=== PATIENT | female | born 1975 | race Caucasian/White ===

== ENCOUNTER 2017-09-30 14:17 | Emergency (ER) | payer SELFPAY ==
[2017-09-30 14:18] VITALS: BP 126/86; PULSE 90; RESP 16; TEMP 36.9; O2SAT 100; BMI 18.9
--- NOTE | 2017-09-30 14:31 | NURSING ---
MEDICAL ASSESSMENTS CHARTED BY SAVANNAH BLOUNT.
--- NOTE | 2017-09-30 14:55 | CT_ITS ---
STUDY: CT CHEST WITHOUT CONTRAST REASON FOR EXAM: Female, 41 years old. Left side chest pain after fall. RADIATION DOSAGE (If Supplied By Facility): CTDIvol = ( 7.97 ) mGy, DLP = ( 318.53 ) mGycm TECHNIQUE: Transaxial imaging was performed without the administration of intravenous contrast material. Individualized dose optimization techniques were used for this CT. COMPARISON: None. FINDINGS: The lungs are normal. There is no demonstrated pleural abnormality. Normal heart and pericardium. Normal mediastinum. Normal hilar regions. Normal unenhanced pulmonary arteries. Normal aorta arch and descending thoracic aorta. There is an undisplaced fracture of the left seventh rib. There is no demonstrated abnormality of the visualized upper abdomen. CT/Chest without Contrast IMPRESSION: Nondisplaced fracture of the left seventh rib. Electronically Signed: Lucy Roy MD at 15:37 EDT Tel , Service support ,
[2017-09-30] MEDS: oxyCODONE 5 MG Tablet 10 MG PO (15:11)
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
[2017-09-30 16:24] VITALS: PULSE 89; RESP 14; O2SAT 99
== END 2017-09-30 16:25 | disposition home or self-care (01) ==
PROVIDERS: Emergency Provider Emergency Medicine
DX: S22.32XA Fracture of one rib, left side, initial encounter for closed fracture (principal); W18.39XA Other fall on same level, initial encounter; Y93.89 Activity, other specified; Y92.9 Unspecified place or not applicable; Z72.0 Tobacco use
CPT/HCPCS: 71250; 99282

== ENCOUNTER 2021-09-16 05:11 | Emergency (ER) | payer MEDICAID, SELFPAY ==
[2021-09-16 05:12] VITALS: BP 122/111; PULSE 127; RESP 17; TEMP 37; O2SAT 100; BMI 27.8
--- NOTE | 2021-09-16 05:19 | RAD_ITS ---
EXAM: XR CHEST, 1 VIEW CLINICAL INDICATION: trauma TECHNIQUE: Frontal view of the chest. This report was created using [employer] report generation technology. COMPARISON: None. FINDINGS: LUNGS AND PLEURAL SPACES: Mild hazy appearance of the right mid-lateral lung suggesting pulmonary contusion. No significantly deep sulcus sign or obvious pneumothorax at the right lung base on what appears to be supine exam. No effusion. HEART: Midline heart, no mediastinal widening. MEDIASTINUM: Central airways and mediastinal contour are unremarkable. BONES/JOINTS: There are fractures of the at least the right third through ninth ribs and soft tissue gas in the right axilla. SOFT TISSUES: Unremarkable. TUBES, LINES AND DEVICES: Enteric tube tip in the body of the stomach, roughly 11.5 cm distal to the expected region of the GE junction, side-port in the stomach. The endotracheal tube is roughly 3.7 cm superior to the niranjan, appears adequately positioned. OTHER FINDINGS: 2 views. RAD/Chest 1 View (Portable) IMPRESSION: 1. Extensive right rib fractures and mild hazy opacity in the right lateral mid to upper lung field, presumably contusions. Multiple right ribs appear fractured posteriorly and laterally, presumed flail chest. No convincing significant pneumothorax on exam with supine positioning. 2. Adequately positioned endotracheal and enteric tubes. 3. Mild soft tissue gas in the right axilla. Electronically Signed: Ana Lilia Carpenter MD at 6:01 EDT ,
[2021-09-16 05:20] VITALS: BP 99/81; PULSE 127; RESP 30; O2SAT 100
--- NOTE | 2021-09-16 05:20 | RAD_ITS ---
ACR Level 3 findings have been noted. An addendum which confirms receipt of the report will follow. EXAM: XR PELVIS, 1 OR 2 VIEWS CLINICAL INDICATION: trauma TECHNIQUE: Frontal view of the pelvis. This report was created using [employer] report generation technology. COMPARISON: None. FINDINGS: BONES/JOINTS: Fractures of the right superior and inferior pubic rami. Fracture extending into the right pubic symphysis, no symphyseal widening, this may be due to overlapping fracture. Multiple small displaced fragments of the superior pubic ramus. Disruption of at least the right S1-S3 neural foramina margins consistent with sacral fracture, and fracture line noted in the superior aspect of the sacrum. Displaced fracture tip of the right L5 transverse process also noted. No destructive or sclerotic lesions. Note that overlapping bowel shadows may however obscure fine detail. Sacroiliac joints are unremarkable. The articular structures are unremarkable. SOFT TISSUES: Unremarkable. No soft tissue swelling or gas. RAD/Pelvis 1 or 2 Views IMPRESSION: Fractures of the right sacrum, right L5 transverse spinous process tip, and of the superior and inferior right pubic rami. No obvious bowel displacement to suggest a significant intrapelvic hematoma at this time. Electronically Signed: Ana Lilia Carpenter MD at 6:05 EDT ,
[2021-09-16 05:21] VITALS: O2SAT 100
--- NOTE | 2021-09-16 05:35 | CT_ITS ---
EXAM: CT THORACIC SPINE WITHOUT INTRAVENOUS CONTRAST CLINICAL INDICATION: trauma TECHNIQUE: Helically acquired images were obtained of the thoracic spine without intravenous contrast. 2D reformats were reviewed. This CT exam was performed using one or more of the following dose reduction techniques: automated exposure control, adjustment of the mA and/or kV according to patient size, and/or use of iterative reconstruction technique. This report was created using [employer] report generation technology. COMPARISON: None. FINDINGS: Fracture of the sternal manubrium. Intact thoracic spine. CT/Spine Thoracic without Contras IMPRESSION: No thoracic spine fracture. Multiple rib and other fractures. Electronically Signed: Ana Lilia Carpenter MD at 6:30 EDT ,
--- NOTE | 2021-09-16 05:35 | CT_ITS ---
We are attempting to reach an attending provider to discuss findings. An addendum with communication details will be sent when the communication is complete. EXAM: CT HEAD WITHOUT INTRAVENOUS CONTRAST CLINICAL INDICATION: trauma TECHNIQUE: Multiple axial images were obtained of the head without intravenous contrast. This CT exam was performed using one or more of the following dose reduction techniques: automated exposure control, adjustment of the mA and/or kV according to patient size, and/or use of iterative reconstruction technique. This report was created using [employer] report generation technology. RADIATION DOSE: CTDIvol = 44.99 mGy, DLP = 880.47 mGy-cm COMPARISON: None. FINDINGS: LIMITATIONS: Asymmetric and rotated patient positioning. BRAIN AND EXTRA-AXIAL SPACES: There is mild subarachnoid hemorrhage in the interpeduncular cistern. Slight intraventricular hemorrhage in the posterior horn of the left lateral ventricle. And subdural hematoma overlying the left cerebrum from anterior to posterior, maximum thickness at least 7 mm, anterior to posterior extent over 12 cm in craniocaudal extent over 10 cm. Slight if any subdural hematoma along the tentorium. No evidence of acute infarct. There is preservation of the verde/white matter interface. Posterior fossa structures are unremarkable. No hydrocephalus. BONES/JOINTS: See below. SOFT TISSUES: Marked right preorbital and frontal soft tissue contusion. No underlying skull or orbit fracture identified. SINUSES: Well aerated completely included sinuses. MASTOID AIR CELLS: Unremarkable. Clear. ORBITS: Visualized globes, extraocular muscles, optic nerves and retrobulbar fat appear unremarkable. CT/Brain/Head without Contrast IMPRESSION: 1. Prominent right facial and frontal soft tissue contusions. 2. Multifocal intracranial hemorrhage including subarachnoid, intraventricular and subdural hematoma. 3. Patient rotation, it is difficult to evaluate for subtle midline shift, slight if any shift to the right. Electronically Signed: Ana Lilia Carpenter MD at 6:26 EDT ,
--- NOTE | 2021-09-16 05:35 | CT_ITS ---
EXAM: CT LUMBAR SPINE WITHOUT INTRAVENOUS CONTRAST CLINICAL INDICATION: trauma TECHNIQUE: Helically acquired images were obtained of the lumbar spine without intravenous contrast. 2D reformats were reviewed. This CT exam was performed using one or more of the following dose reduction techniques: automated exposure control, adjustment of the mA and/or kV according to patient size, and/or use of iterative reconstruction technique. This report was created using [employer] report [employer] technology. COMPARISON: None. FINDINGS: VERTEBRAE: Displaced fracture of the tip of the right L5 transverse process. No traumatic subluxation. No discrete lytic or blastic abnormality. DISCS/SPINAL CANAL/NEURAL FORAMINA: Unremarkable. Disc heights are preserved. No critical stenosis. SOFT TISSUES: Complex fracture of the right sacrum with irregular increased soft tissue density in the right retroperitoneum, consistent with recent sacral-retroperitoneal hematoma mildly elevating the right psoas muscle, at least 2.5 cm AP. Thickening of right obturator internus muscle with mottled density consistent with intramuscular hematoma. Pelvic fractures including superior and inferior pubic rami on the right. The articular surface of the pubic symphysis is intact. VASCULATURE: Visualized abdominal aorta is not dilated. LYMPH NODES: Unremarkable. No retroperitoneal adenopathy. CT/Spine Lumbar without Contrast IMPRESSION: 1. Fracture of the right L5 transverse spinous process. Otherwise intact lumbar spine. 2. Extensive right sacral and pubic rami fractures and multifocal mild retroperitoneal and intramuscular hematoma in the right lower quadrant and pelvis. Also hematoma in the space of Retzius and superior to the pubic symphysis, greater on the left, up to 4.9 cm thickness AP. Electronically Signed: Ana Lilia Carpenter MD at 6:34 EDT ,
--- NOTE | 2021-09-16 05:35 | CT_ITS ---
EXAM: CT CERVICAL SPINE WITHOUT INTRAVENOUS CONTRAST CLINICAL INDICATION: trauma TECHNIQUE: Helically acquired images were obtained of the cervical spine without intravenous contrast. 2D reformatted images were reviewed. This CT exam was performed using one or more of the following dose reduction techniques: automated exposure control, adjustment of the mA and/or kV according to patient size, and/or use of iterative reconstruction technique. This report was created using [employer] report generation technology. RADIATION DOSE: CTDIvol = 19.71 mGy, DLP = 414.78 mGy-cm COMPARISON: None. FINDINGS: LIMITATIONS: Asymmetric and rotated patient positioning. VERTEBRAE: Mild hypertrophic changes in the facet joints. No fracture. No traumatic subluxation. No discrete lytic or blastic abnormality. Normal alignment. Normal craniocervical junction and cervicothoracic junction. DISCS/SPINAL CANAL/NEURAL FORAMINA: Moderate disc space narrowing at C5-6 with anterior, posterior and uncovertebral osteophytes. SOFT TISSUES: Unremarkable. No prevertebral soft tissue swelling. LYMPH NODES: Unremarkable. No cervical adenopathy. LUNG APICES: Unremarkable as visualized. Clear. PLEURAL SPACE: Fractures of right first anterolateral rib, patchy opacity and trace pneumothorax at the right lung apex. CT/Spine Cervical without Contras IMPRESSION: No acute cervical spine abnormality. Degenerative change, most pronounced at C5-6. Right upper rib fractures, not fully included, and pulmonary contusion and trace pneumothorax. Electronically Signed: Ana Lilia Carpenter MD at 6:38 EDT ,
[2021-09-16] MEDS: 0.9% Normal Saline 1,000 ML 999 ML IV (05:36)
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
[2021-09-16] MEDS: Diphth,Pertuss(Acell),Tet Vac 0.5 ML Vial IM (05:38)
--- NOTE | 2021-09-16 06:04 | ED.RN ---
2 units of PRBCs started with [facility] at 0604.
[2021-09-16 06:06] VITALS: BP 42/32; PULSE 125; O2SAT 100
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
--- NOTE | 2021-09-16 06:38 | ED.RN ---
Mother, Jaylin called in for update. gave number for [facility].
[2021-09-16 06:58] LABS: Absolute Lymphocyte Count 3.61 X10^3/uL (0.83-4.51); Absolute Neutrophil Count 3.3 X10^3/uL (2.0-7.7); Basophil# 0.03 X10^3/uL; Basophil% 0.4 % (0-1); Eosinophil# 0.15 X10^3/uL; Hematocrit 38.6 % (37-47); Hemoglobin 12.4 g/dL (12.0-15.0); Lymphocyte # 3.61 X10^3/ul (0.83-4.51); Lymphocyte % 48.3 % (19-41); Mean Corp Hgb Conc 32.1 g/dL (32-36); Mean Corpuscular Hgb 32.3 pg (27.0-32.0); Mean Corpuscular Volume 100.5 fL (81-99); Mean Platelet Vol. 10.1 fl (6.2-12.0); Monocyte# 0.36 X10^3/uL; Monocyte% 4.8 % (0-10); NRBC Flagged by Analyzer 0 % (0-5); Neutrophil # 3.27 X10^3/uL (2.7-7.7); Neutrophil % 43.7 % (47-70); Platelet Count 289 K/mm3 (150-450); RBC Distribution Width CV 12.6 % (11.6-14.6); RBC Distribution Width SD 46.7 fl (35.1-43.9); Red Blood Count 3.84 M/mm3 (4.2-5.4); White Blood Count 7.5 K/mm3 (4.4-11.0)
[2021-09-16 07:06] LABS: Prothrombin Time (Protime)PT. 13.2 SECONDS (11.7-14.9)
[2021-09-16 07:07] LABS: Partial Thromboplast Time 29.9 Seconds (24.1-36.2)
[2021-09-16 07:13] LABS: ALB/GLOB Ratio 0.9 RATIO (0.9-2.4); AST(SGOT) 413 U/L (15-37); Alanine Aminotransfer ALT/SGPT 215 U/L (13-56); Albumin, Serum 3.5 g/dL (3.2-5.0); Alkaline Phosphatase 69 U/L (45-117); Anion Gap 10 (5-15); BUN 11 mg/dL (7-18); BUN/Creat Ratio 11.5 RATIO (10-20); Calcium,Total 8.4 mg/dL (8.5-10.1); Chloride 105 mmol/L (98-107); Creatinine, Serum 0.96 mg/dL (0.55-1.02); EST Glomerular Filtration Rate 68 mL/min (>60); Est Glom Filt Rate - Afr Amer 82 mL/min (>60); Estimated Creatinine Clearance 70.74 ml/min; Globulin 3.9 g/dL (2.2-4.2); Glucose 111 mg/dL (74-106); Potassium 3.6 mmol/L (3.5-5.1); Protein, Total 7.4 g/dL (6.4-8.2); Sodium Level 138 mmol/L (136-145)
[2021-09-18 07:43] LABS: Bedside Glucose 96 mg/dL (74-106)
== END 2021-09-16 06:20 | disposition short-term general hospital (02) ==
PROVIDERS: Emergency Provider Emergency Medicine; Visit Provider Emergency Medicine
DX: S06.6X9A Traumatic subarachnoid hemorrhage with loss of consciousness of unspecified duration, initial encounter (principal); S06.5X9A Traumatic subdural hemorrhage with loss of consciousness of unspecified duration, initial encounter; S22.5XXA Flail chest, initial encounter for closed fracture; S27.329A Contusion of lung, unspecified, initial encounter; V09.3XXA Pedestrian injured in unspecified traffic accident, initial encounter
CPT/HCPCS: 51702; G0463; 31500; 36430; 70450; 71045; 71260; 72125; 72128; 72131; 72170; 74177; 80053; 82077; 82962; 85025; 85610; 85730; 86850; 86900; 86901; 86920; 86922; 90715; 96365; 96372; 99251; 99285; P9016; Q9967; A4216

== ENCOUNTER 2021-12-14 13:37 | Inpatient (IN) | payer MEDICAID, SELFPAY ==
[2021-12-14 13:41] VITALS: BP 109/65; PULSE 80; RESP 18; TEMP 36.7; O2SAT 96; BMI 20.2
[2021-12-14 14:54] VITALS: BP 109/65; PULSE 80; RESP 18; TEMP 36.7; O2SAT 96
[2021-12-14] MEDS: oxyCODONE 5 MG Tablet GT (18:19)
[2021-12-14] MEDS: Clindamycin HCl 150 MG Capsule 300 MG GT ×2 (18:19→22:26)
[2021-12-14] MEDS: Jevity 1.5. 1,000 ML Bottle 270 ML GT ×2 (18:19→22:24)
[2021-12-14 19:08] VITALS: BP 110/71; PULSE 77; RESP 18; TEMP 36.5; O2SAT 97
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
[2021-12-14] MEDS: LORazepam 1 MG Tablet GT (20:03)
[2021-12-14] MEDS: Acetaminophen 650 MG/20 ML UDC GT (20:03)
[2021-12-14 20:54] VITALS: BP 110/71; PULSE 77; RESP 18; TEMP 36.5; O2SAT 97
[2021-12-14 22:20] VITALS: BP 133/86; PULSE 95
[2021-12-14] MEDS: rifAMPin 300 MG Capsule GT (22:22)
[2021-12-14] MEDS: QUEtiapine 25 MG Tablet GT (22:22)
[2021-12-14] MEDS: Chlorhexidine 480 ML 15 ML PO (22:22)
[2021-12-14] MEDS: Famotidine 20 MG Tablet GT (22:23)
[2021-12-14] MEDS: Nystatin Powder 15gm Bottle 1 APPLIC TOPICAL (22:23)
[2021-12-14 22:24] VITALS: BP 133/86; PULSE 95
[2021-12-14] MEDS: Metoprolol Tartrate 100 MG Tablet GT (22:24)
[2021-12-14] MEDS: BACITRACIN 15 GM Tube 1 APPLIC TOPICAL (22:26)
[2021-12-14] MEDS: Menthol/Lanolin/Calamine/Znox 113 GM Tube 1 APPLIC TOPICAL (22:26)
[2021-12-14] MEDS: AMANTADINE HCL 50 MG/5ML 100 MG GT (22:27)
[2021-12-15] MEDS: oxyCODONE 5 MG Tablet GT ×3 (00:43→12:51)
[2021-12-15] MEDS: Jevity 1.5. 1,000 ML Bottle 270 ML GT ×5 (06:24→20:57)
[2021-12-15] MEDS: Acetaminophen 650 MG/20 ML UDC GT ×3 (06:24→20:58)
[2021-12-15] MEDS: QUEtiapine 25 MG Tablet GT ×3 (06:24→20:56)
[2021-12-15] MEDS: Menthol/Lanolin/Calamine/Znox 113 GM Tube 1 APPLIC TOPICAL ×3 (06:25→20:58)
[2021-12-15 07:50] VITALS: BP 115/82; PULSE 84; RESP 16; TEMP 36.9; O2SAT 97
[2021-12-15] MEDS: Enoxaparin 40 MG/0.4 ML Syringe SC (08:33)
[2021-12-15] MEDS: Clindamycin HCl 150 MG Capsule 300 MG GT ×3 (08:34→18:00)
[2021-12-15 08:36] VITALS: PULSE 80
[2021-12-15] MEDS: amLODIPine 10 MG Tablet GT (08:36)
[2021-12-15] MEDS: Metoprolol Tartrate 100 MG Tablet GT ×2 (08:36→20:57)
[2021-12-15] MEDS: FLUoxetine 20 MG Capsule GT (08:36)
[2021-12-15] MEDS: Famotidine 20 MG Tablet GT ×2 (08:36→20:57)
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
[2021-12-15] MEDS: AMANTADINE HCL 50 MG/5ML 100 MG GT ×2 (08:37→20:58)
[2021-12-15] MEDS: Chlorhexidine 480 ML 15 ML PO ×2 (08:42→20:56)
[2021-12-15] MEDS: Nystatin Powder 15gm Bottle 1 APPLIC TOPICAL ×2 (08:51→20:57)
[2021-12-15] MEDS: BACITRACIN 15 GM Tube 1 APPLIC TOPICAL ×2 (08:51→20:58)
[2021-12-15] MEDS: rifAMPin 300 MG Capsule GT ×2 (08:52→20:56)
--- NOTE | 2021-12-15 11:02 | CASEMGMT ---
Addendum entered by Kate Thorpe 12/15/21 12:02: Received return call from mother. Updated contacts. Pt does not have HCPOA or LW but mother is in the process of pursuing guardianship. DC goal is for pt to return home with parents. Mother works real time analyst but has intermittent FMLA or may retire. Father is retired and will be at home to assist pt 01/10. Pt lives in a 2 story home and parents planning on making a room for pt on the main floor next to a bathroom, but renovations have not begun yet. SW educated to [employer] insurance with [employer] 12/20 and continued stay is not guaranteed. Mother under the impression pt may be in [place] until [place]. Educated insurance typically does not have longer than 30 days in [place], but is all based on significant progress from update to update. Cautioned IDT and parents perception of 'significant progress' is different than insurance's. Encouraged mother to begin renovations for first floor set up for pt. Mother expressed understanding. SW to coordinate skilled HHC and DME needs - hospital bed, w/c, FWW. SW to begin searching for HHC companies that accept pt's insurance to ensure there is a agency set up by time of DC. SW educated to Team meetings for coming week and following weeks d/t Dr. mari. Mother confirmed pt does not have a PCP and will begin searching for one. SW offered to assist and contact offices to see which PCP accepts pt's insurance. Mother appreciative of all information. SW to continue to follow. Original Note: Social Work Pt unable to complete initial assessment. Left message with mother. Kate Thorpe, BIANKA ALEJANDRAW
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
[2021-12-15] MEDS: Loperamide 2 MG Capsule GT ×2 (15:40→21:39)
[2021-12-15] MEDS: LORazepam 1 MG Tablet GT (15:43)
[2021-12-15 19:06] VITALS: BP 105/74; PULSE 87; RESP 16; TEMP 36.6; O2SAT 98
[2021-12-15 20:55] VITALS: BP 100/73; PULSE 81
[2021-12-15 20:57] VITALS: BP 100/73; PULSE 81
[2021-12-16] MEDS: Acetaminophen 650 MG/20 ML UDC GT ×3 (02:25→20:35)
[2021-12-16] MEDS: Loperamide 2 MG Capsule GT ×3 (02:26→12:30)
[2021-12-16] MEDS: LORazepam 1 MG Tablet GT ×2 (02:54→12:30)
[2021-12-16] MEDS: Jevity 1.5. 1,000 ML Bottle 270 ML GT ×5 (06:10→20:36)
[2021-12-16] MEDS: QUEtiapine 25 MG Tablet GT ×3 (06:10→20:35)
[2021-12-16] MEDS: Menthol/Lanolin/Calamine/Znox 113 GM Tube 1 APPLIC TOPICAL ×3 (06:10→20:36)
[2021-12-16 07:46] VITALS: BP 119/84; PULSE 78; RESP 16; TEMP 36.4; O2SAT 100
[2021-12-16 09:27] VITALS: BP 119/82; PULSE 88
[2021-12-16] MEDS: Enoxaparin 40 MG/0.4 ML Syringe SC (09:27)
[2021-12-16] MEDS: FLUoxetine 20 MG Capsule GT (09:27)
[2021-12-16] MEDS: Famotidine 20 MG Tablet GT ×2 (09:27→20:34)
[2021-12-16] MEDS: Metoprolol Tartrate 100 MG Tablet GT ×2 (09:27→20:34)
[2021-12-16] MEDS: AMANTADINE HCL 50 MG/5ML 100 MG GT ×2 (09:27→20:36)
[2021-12-16] MEDS: Chlorhexidine 480 ML 15 ML PO ×2 (09:28→23:04)
[2021-12-16] MEDS: BACITRACIN 15 GM Tube 1 APPLIC TOPICAL ×2 (09:28→20:37)
[2021-12-16] MEDS: amLODIPine 10 MG Tablet GT (09:28)
[2021-12-16] MEDS: Nystatin Powder 15gm Bottle 1 APPLIC TOPICAL ×2 (09:29→20:37)
[2021-12-16 09:48] VITALS: PULSE 88; RESP 18; O2SAT 99
--- NOTE | 2021-12-16 10:15 | NURSING ---
Notified Dr. Campbell that pt had not had any labs ordered since admission. Received order for CBC and CMP
[2021-12-16] MEDS: oxyCODONE 5 MG Tablet GT ×2 (12:14→20:34)
[2021-12-16 12:49] LABS: ALB/GLOB Ratio 0.6 RATIO (0.9-2.4); AST(SGOT) 23 U/L (15-37); Alanine Aminotransfer ALT/SGPT 42 U/L (13-56); Albumin, Serum 2.9 g/dL (3.2-5.0); Alkaline Phosphatase 145 U/L (45-117); Anion Gap 6 (5-15); BUN 18 mg/dL (7-18); BUN/Creat Ratio 29.3 RATIO (10-20); Calcium,Total 10.4 mg/dL (8.5-10.1); Chloride 102 mmol/L (98-107); Creatinine, Serum 0.62 mg/dL (0.55-1.02); EST Glomerular Filtration Rate 112 mL/min (>60); Est Glom Filt Rate - Afr Amer 136 mL/min (>60); Glucose 111 mg/dL (74-106); Protein, Total 7.9 g/dL (6.4-8.2); Sodium Level 136 mmol/L (136-145)
[2021-12-16 13:02] LABS: Absolute Neutrophil Count 2.9 X10^3/uL (2.0-7.7); Basophil# 0.03 X10^3/uL; Basophil% 0.5 % (0-1); Eosinophil# 0.45 X10^3/uL; Eosinophils% 7.1 % (0-5); Hematocrit 33.2 % (37-47); Hemoglobin 10.4 g/dL (12.0-15.0); Lymphocyte % 36.1 % (19-41); Mean Corp Hgb Conc 31.3 g/dL (32-36); Mean Corpuscular Hgb 28.3 pg (27.0-32.0); Mean Corpuscular Volume 90.5 fL (81-99); Mean Platelet Vol. 9.7 fl (6.2-12.0); NRBC Flagged by Analyzer 0 % (0-5); Neutrophil # 2.89 X10^3/uL (2.7-7.7); Neutrophil % 45.1 % (47-70); Platelet Count 372 K/mm3 (150-450); RBC Distribution Width CV 14.8 % (11.6-14.6); RBC Distribution Width SD 49.3 fl (35.1-43.9); Red Blood Count 3.67 M/mm3 (4.2-5.4); White Blood Count 6.4 K/mm3 (4.4-11.0)
[2021-12-16 19:45] VITALS: BP 118/76; PULSE 88; RESP 20; TEMP 37.1; O2SAT 97
[2021-12-16 20:00] VITALS: PULSE 88; RESP 20; O2SAT 97
[2021-12-16 20:34] VITALS: BP 118/76; PULSE 88
--- NOTE | 2021-12-16 21:08 | NURSING ---
Addendum entered by Donna Yung 12/16/21 21:20: 2100 pt now resting and watching tv , holding her pillow of her dog. staff remained in room for comfort. Original Note: 1999 staff to room to completed clinical findings and hs care. pt was agitated and restless and moving her let leg in the bed , as well as crying out . hs care completed with 2 assists and pt yelled out when marcela-care was completed and continued to be agitated. when asked pt did say that she was hurting, tylenol and oxyir was given as per order. a new rash was noted on pt lt anterior thigh, raised and pink in color. 2029 pt continues with restlessness and agitation and tried to grab peg tube from staff while giving feeding and medication. staff tried to complete oral care and pt refused yelling no, but did apply lip balm. pt groin, buttocks, marcela-rectal area, and coccyx remains red. pt remains restless and agitation has decreased. pt asked if she was to warm and she stated yes. staff brought in a fan for comfort. 2044 pt is calmer and less restless and when asked reports that the fan is helping. staff completes rest of clinical findings 212
--- NOTE | 2021-12-16 21:21 | NURSING ---
2120 pt resting with eyes closed , no distress noted .
--- NOTE | 2021-12-17 01:51 | NURSING ---
pt required 2 assists to change attends and clean up for urine incontinence. pt agitated and yelling out. refused oral care when offered
[2021-12-17] MEDS: Acetaminophen 650 MG/20 ML UDC GT ×3 (03:43→19:42)
[2021-12-17] MEDS: oxyCODONE 5 MG Tablet GT ×3 (03:44→17:02)
[2021-12-17] MEDS: Loperamide 2 MG Capsule GT ×3 (03:44→13:47)
[2021-12-17] MEDS: Menthol/Lanolin/Calamine/Znox 113 GM Tube 1 APPLIC TOPICAL ×3 (06:20→20:06)
[2021-12-17] MEDS: Jevity 1.5. 1,000 ML Bottle 270 ML GT ×5 (06:20→22:39)
[2021-12-17] MEDS: QUEtiapine 25 MG Tablet GT ×3 (06:20→19:44)
[2021-12-17 08:15] VITALS: BP 111/73; PULSE 78; RESP 20; TEMP 36.2; O2SAT 98
[2021-12-17 10:00] VITALS: O2SAT 99
[2021-12-17] MEDS: Famotidine 20 MG Tablet GT ×2 (10:03→22:38)
[2021-12-17] MEDS: Nystatin Powder 15gm Bottle 1 APPLIC TOPICAL ×2 (10:03→20:06)
[2021-12-17] MEDS: Enoxaparin 40 MG/0.4 ML Syringe SC (10:03)
[2021-12-17] MEDS: amLODIPine 10 MG Tablet GT (10:03)
[2021-12-17] MEDS: FLUoxetine 20 MG Capsule GT (10:03)
[2021-12-17] MEDS: AMANTADINE HCL 50 MG/5ML 100 MG GT ×2 (10:04→22:37)
[2021-12-17] MEDS: Chlorhexidine 480 ML 15 ML PO ×2 (10:05→22:50)
[2021-12-17] MEDS: BACITRACIN 15 GM Tube 1 APPLIC TOPICAL ×2 (10:05→20:05)
[2021-12-17 10:07] VITALS: PULSE 105
[2021-12-17] MEDS: Metoprolol Tartrate 100 MG Tablet GT ×2 (10:07→22:38)
[2021-12-17] MEDS: LORazepam 1 MG Tablet GT ×2 (11:32→19:42)
[2021-12-17 19:45] VITALS: O2SAT 98
[2021-12-17 19:50] VITALS: BP 112/68; PULSE 79; RESP 18; TEMP 36.6; O2SAT 98
--- NOTE | 2021-12-17 19:56 | NURSING ---
Pt very restless, crying out and agitated, moving in bed. Unable to state what is wrong, answers yes to most questions, repaeting I don't know. Medicated with Ativan, one on one care given.
[2021-12-17 22:38] VITALS: BP 140/87; PULSE 91
[2021-12-18] MEDS: Menthol/Lanolin/Calamine/Znox 113 GM Tube 1 APPLIC TOPICAL ×3 (06:12→21:36)
[2021-12-18] MEDS: oxyCODONE 5 MG Tablet GT ×4 (06:26→22:05)
[2021-12-18] MEDS: QUEtiapine 25 MG Tablet GT ×3 (06:26→21:33)
[2021-12-18] MEDS: Jevity 1.5. 1,000 ML Bottle 270 ML GT ×2 (06:26→10:28)
[2021-12-18 07:23] VITALS: BP 125/77; PULSE 90; RESP 19; TEMP 36.3; O2SAT 98
--- NOTE | 2021-12-18 08:07 | CASEMGMT ---
Social Work IDT met with patient and mother for Team meeting. Discussed patient's progress in PT/OT/ST/SN. Educated to [facility] insurance with NRD 12/20 and continued stay is not guaranteed. Mother's goal remains pt home with parents at DC. Pt is currently x2 assist and some cues with directions. Will ReTeam next week. SW to continue to follow for DC planning and support. Kate Thorpe, LABORER [employer] ARCHITECT
[2021-12-18] MEDS: Famotidine 20 MG Tablet GT ×2 (10:25→21:34)
[2021-12-18] MEDS: amLODIPine 10 MG Tablet GT (10:25)
[2021-12-18 10:26] VITALS: BP 125/77; PULSE 90
[2021-12-18] MEDS: FLUoxetine 20 MG Capsule GT (10:26)
[2021-12-18] MEDS: Loperamide 2 MG Capsule GT ×3 (10:26→21:41)
[2021-12-18] MEDS: Metoprolol Tartrate 100 MG Tablet GT ×2 (10:26→21:34)
[2021-12-18] MEDS: AMANTADINE HCL 50 MG/5ML 100 MG GT ×2 (10:27→21:34)
[2021-12-18] MEDS: Chlorhexidine 480 ML 15 ML PO ×2 (10:27→21:33)
[2021-12-18] MEDS: Enoxaparin 40 MG/0.4 ML Syringe SC (10:27)
[2021-12-18] MEDS: BACITRACIN 15 GM Tube 1 APPLIC TOPICAL ×2 (10:28→21:35)
[2021-12-18] MEDS: Nystatin Powder 15gm Bottle 1 APPLIC TOPICAL ×2 (10:28→21:34)
[2021-12-18] MEDS: LORazepam 1 MG Tablet GT ×2 (11:51→22:31)
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
[2021-12-18] MEDS: Jevity 1.5. 1,000 ML Bottle 300 ML GT ×3 (14:30→21:36)
[2021-12-18 19:14] VITALS: BP 124/85; PULSE 82; RESP 16; TEMP 36.8; O2SAT 98
[2021-12-18 21:34] VITALS: PULSE 83
[2021-12-18 22:00] VITALS: PULSE 81; RESP 17; O2SAT 98
[2021-12-19] MEDS: QUEtiapine 25 MG Tablet GT ×3 (06:15→21:21)
[2021-12-19] MEDS: Jevity 1.5. 1,000 ML Bottle 300 ML GT ×5 (06:15→21:25)
[2021-12-19] MEDS: Loperamide 2 MG Capsule GT ×5 (06:15→21:21)
[2021-12-19] MEDS: Menthol/Lanolin/Calamine/Znox 113 GM Tube 1 APPLIC TOPICAL ×3 (06:15→21:25)
[2021-12-19 08:28] VITALS: BP 122/72; PULSE 85; RESP 16; TEMP 36.1; O2SAT 97
--- NOTE | 2021-12-19 08:35 | CASEMGMT ---
Addendum entered by Kate Thorpe 12/22/21 11:46: SW referred to 15 agencies within 20 mile radius, 3 stars and up via [employer]. 2 agencies potentially could accept pt d/t insurance and service area: [facility] and [facility]. SW completed a new search including 1 and 2 star providers within the same radius - an additional 10 agencies - referrals made via [employer]. Insurance NRD 12/27. SW will continue to follow. Original Note: Social Work SW to begin searching for accepting skilled [facility] providers for insurance to ensure pt has needed care at time of DC. Referrals sent to several providers via [employer]. Kate Thorpe, BIANKA ALEJANDRAW
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
[2021-12-19] MEDS: oxyCODONE 5 MG Tablet GT ×2 (10:07→14:07)
[2021-12-19 10:08] VITALS: PULSE 85
[2021-12-19] MEDS: amLODIPine 10 MG Tablet GT (10:08)
[2021-12-19] MEDS: Enoxaparin 40 MG/0.4 ML Syringe SC (10:08)
[2021-12-19] MEDS: Famotidine 20 MG Tablet GT ×2 (10:08→21:20)
[2021-12-19] MEDS: Metoprolol Tartrate 100 MG Tablet GT ×2 (10:08→21:20)
[2021-12-19] MEDS: FLUoxetine 20 MG Capsule GT (10:08)
[2021-12-19] MEDS: AMANTADINE HCL 50 MG/5ML 100 MG GT ×2 (10:09→21:21)
[2021-12-19] MEDS: Chlorhexidine 480 ML 15 ML PO ×2 (10:11→21:24)
[2021-12-19] MEDS: BACITRACIN 15 GM Tube 1 APPLIC TOPICAL ×2 (10:11→21:25)
[2021-12-19] MEDS: Nystatin Powder 15gm Bottle 1 APPLIC TOPICAL ×2 (10:14→21:24)
[2021-12-19] MEDS: LORazepam 1 MG Tablet GT ×2 (11:51→21:58)
[2021-12-19 19:31] VITALS: BP 121/77; PULSE 79; RESP 16; TEMP 36.4; O2SAT 98
[2021-12-19 21:20] VITALS: PULSE 74
[2021-12-19] MEDS: Acetaminophen 650 MG/20 ML UDC GT (21:59)
[2021-12-19 22:00] VITALS: PULSE 76; RESP 16; O2SAT 96
[2021-12-20] MEDS: Acetaminophen 650 MG/20 ML UDC GT (05:18)
[2021-12-20] MEDS: Jevity 1.5. 1,000 ML Bottle 300 ML GT ×5 (05:19→22:00)
[2021-12-20] MEDS: QUEtiapine 25 MG Tablet GT ×3 (05:19→21:58)
[2021-12-20] MEDS: Loperamide 2 MG Capsule GT ×4 (05:19→17:53)
[2021-12-20] MEDS: Menthol/Lanolin/Calamine/Znox 113 GM Tube 1 APPLIC TOPICAL ×3 (05:19→21:58)
[2021-12-20 07:45] VITALS: BP 120/79; PULSE 72; RESP 17; TEMP 35.9; O2SAT 94
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
[2021-12-20] MEDS: Enoxaparin 40 MG/0.4 ML Syringe SC (10:34)
[2021-12-20] MEDS: oxyCODONE 5 MG Tablet GT ×3 (10:34→21:56)
[2021-12-20] MEDS: AMANTADINE HCL 50 MG/5ML 100 MG GT ×2 (10:34→21:59)
[2021-12-20 10:35] VITALS: PULSE 72
[2021-12-20] MEDS: Famotidine 20 MG Tablet GT ×2 (10:35→21:58)
[2021-12-20] MEDS: Metoprolol Tartrate 100 MG Tablet GT ×2 (10:35→22:00)
[2021-12-20] MEDS: FLUoxetine 20 MG Capsule GT (10:35)
[2021-12-20] MEDS: amLODIPine 10 MG Tablet GT (10:35)
[2021-12-20] MEDS: BACITRACIN 15 GM Tube 1 APPLIC TOPICAL ×2 (10:36→21:59)
[2021-12-20] MEDS: Nystatin Powder 15gm Bottle 1 APPLIC TOPICAL ×2 (10:36→21:58)
[2021-12-20] MEDS: Chlorhexidine 480 ML 15 ML PO ×2 (10:37→21:58)
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
[2021-12-20 19:13] VITALS: BP 101/60; PULSE 80; RESP 16; TEMP 35.7; O2SAT 98
[2021-12-20] MEDS: LORazepam 1 MG Tablet GT (21:56)
[2021-12-20 22:00] VITALS: PULSE 80; PULSE 83; RESP 16; O2SAT 98
[2021-12-21] MEDS: Jevity 1.5. 1,000 ML Bottle 300 ML GT ×4 (06:07→22:57)
[2021-12-21] MEDS: Menthol/Lanolin/Calamine/Znox 113 GM Tube 1 APPLIC TOPICAL ×3 (06:07→22:57)
[2021-12-21] MEDS: QUEtiapine 25 MG Tablet GT ×3 (06:08→22:56)
[2021-12-21] MEDS: Acetaminophen 650 MG/20 ML UDC GT ×3 (06:08→22:51)
[2021-12-21] MEDS: Loperamide 2 MG Capsule GT ×5 (06:08→22:55)
[2021-12-21 07:29] VITALS: BP 112/57; PULSE 78; RESP 16; TEMP 36.6; O2SAT 96
[2021-12-21 08:13] VITALS: BP 112/57; PULSE 78; RESP 16; TEMP 36.6; O2SAT 96
[2021-12-21] MEDS: AMANTADINE HCL 50 MG/5ML 100 MG GT ×2 (09:56→22:58)
[2021-12-21] MEDS: Famotidine 20 MG Tablet GT ×2 (09:56→22:56)
[2021-12-21 09:57] VITALS: PULSE 78
[2021-12-21] MEDS: amLODIPine 10 MG Tablet GT (09:57)
[2021-12-21] MEDS: FLUoxetine 20 MG Capsule GT (09:57)
[2021-12-21] MEDS: Metoprolol Tartrate 100 MG Tablet GT ×2 (09:57→22:56)
[2021-12-21] MEDS: Enoxaparin 40 MG/0.4 ML Syringe SC (09:59)
[2021-12-21] MEDS: oxyCODONE 5 MG Tablet GT (10:00)
[2021-12-21] MEDS: Nystatin Powder 15gm Bottle 1 APPLIC TOPICAL ×2 (10:08→22:56)
[2021-12-21] MEDS: Chlorhexidine 480 ML 15 ML PO ×2 (12:56→22:56)
[2021-12-21] MEDS: BACITRACIN 15 GM Tube 1 APPLIC TOPICAL ×2 (12:56→22:57)
[2021-12-21] MEDS: LORazepam 1 MG Tablet GT (17:42)
--- NOTE | 2021-12-21 18:20 | NURSING ---
Prn ativan given per GT. Patient was having outbursts of yelling, crying, and restlessness after her company left. Unable to console and patient is alert to self with questionable understanding and 1:1 ineffective.
[2021-12-21 19:16] VITALS: BP 96/65; PULSE 67; RESP 16; TEMP 36.6; O2SAT 100
[2021-12-21 22:56] VITALS: BP 116/75; PULSE 85
[2021-12-22] MEDS: Jevity 1.5. 1,000 ML Bottle 300 ML GT ×5 (05:27→21:58)
[2021-12-22] MEDS: QUEtiapine 25 MG Tablet GT ×3 (05:27→18:50)
[2021-12-22] MEDS: Menthol/Lanolin/Calamine/Znox 113 GM Tube 1 APPLIC TOPICAL ×3 (05:29→21:56)
[2021-12-22] MEDS: Acetaminophen 650 MG/20 ML UDC GT ×3 (05:39→21:55)
[2021-12-22] MEDS: LORazepam 1 MG Tablet GT (06:03)
[2021-12-22 08:00] VITALS: BP 103/67; PULSE 71; RESP 15; TEMP 36.7; O2SAT 98
[2021-12-22] MEDS: oxyCODONE 5 MG Tablet GT ×2 (08:09→21:54)
[2021-12-22 08:29] VITALS: PULSE 92
[2021-12-22] MEDS: Metoprolol Tartrate 100 MG Tablet GT ×2 (08:29→21:56)
[2021-12-22] MEDS: FLUoxetine 20 MG Capsule GT (08:29)
[2021-12-22] MEDS: amLODIPine 10 MG Tablet GT (08:29)
[2021-12-22] MEDS: Famotidine 20 MG Tablet GT ×2 (08:29→21:56)
[2021-12-22] MEDS: AMANTADINE HCL 50 MG/5ML 100 MG GT ×2 (08:30→21:55)
[2021-12-22] MEDS: Enoxaparin 40 MG/0.4 ML Syringe SC (08:30)
[2021-12-22] MEDS: Loperamide 2 MG Capsule GT ×4 (08:30→21:56)
[2021-12-22] MEDS: Nystatin Powder 15gm Bottle 1 APPLIC TOPICAL ×2 (08:44→21:57)
[2021-12-22] MEDS: Chlorhexidine 480 ML 15 ML PO ×2 (08:47→21:58)
[2021-12-22] MEDS: BACITRACIN 15 GM Tube 1 APPLIC TOPICAL ×2 (08:47→22:10)
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
[2021-12-22 21:56] VITALS: BP 110/60; PULSE 74
[2021-12-22 22:00] VITALS: BP 110/60; PULSE 74
[2021-12-23] MEDS: QUEtiapine 25 MG Tablet GT ×5 (00:20→23:49)
[2021-12-23] MEDS: Acetaminophen 650 MG/20 ML UDC GT ×2 (05:15→13:28)
[2021-12-23] MEDS: Loperamide 2 MG Capsule GT ×4 (05:16→18:30)
[2021-12-23] MEDS: Jevity 1.5. 1,000 ML Bottle 300 ML GT ×5 (05:40→23:50)
[2021-12-23] MEDS: Menthol/Lanolin/Calamine/Znox 113 GM Tube 1 APPLIC TOPICAL ×3 (05:41→23:50)
--- NOTE | 2021-12-23 06:15 | NURSING ---
Pt had 0 residual before peg tube feeding and medication administration.
[2021-12-23 06:50] LABS: Hematocrit 32.2 % (37-47); Hemoglobin 9.9 g/dL (12.0-15.0); Mean Corp Hgb Conc 30.7 g/dL (32-36); Mean Corpuscular Hgb 27.5 pg (27.0-32.0); Mean Corpuscular Volume 89.4 fL (81-99); Mean Platelet Vol. 9.3 fl (6.2-12.0); Platelet Count 286 K/mm3 (150-450); RBC Distribution Width SD 49.1 fl (35.1-43.9); White Blood Count 5.3 K/mm3 (4.4-11.0)
[2021-12-23 07:25] LABS: ALB/GLOB Ratio 0.6 RATIO (0.9-2.4); AST(SGOT) 33 U/L (15-37); Alanine Aminotransfer ALT/SGPT 52 U/L (13-56); Albumin, Serum 2.8 g/dL (3.2-5.0); Alkaline Phosphatase 118 U/L (45-117); Anion Gap 7 (5-15); BUN 20 mg/dL (7-18); BUN/Creat Ratio 30.9 RATIO (10-20); Chloride 104 mmol/L (98-107); Creatinine, Serum 0.65 mg/dL (0.55-1.02); EST Glomerular Filtration Rate 106 mL/min (>60); Est Glom Filt Rate - Afr Amer 128 mL/min (>60); Estimated Creatinine Clearance 96.94 ml/min; Globulin 4.8 g/dL (2.2-4.2); Glucose 125 mg/dL (74-106); Magnesium 1.8 mg/dL (1.6-2.6); Phosphorus 4.2 mg/dL (2.5-4.9); Protein, Total 7.6 g/dL (6.4-8.2); Sodium Level 137 mmol/L (136-145)
[2021-12-23 07:27] VITALS: BP 109/67; PULSE 70; RESP 18; TEMP 36.6; O2SAT 99
[2021-12-23 09:17] VITALS: PULSE 75
[2021-12-23] MEDS: AMANTADINE HCL 50 MG/5ML 100 MG GT ×2 (09:17→23:48)
[2021-12-23] MEDS: amLODIPine 10 MG Tablet GT (09:17)
[2021-12-23] MEDS: Enoxaparin 40 MG/0.4 ML Syringe SC (09:17)
[2021-12-23] MEDS: Famotidine 20 MG Tablet GT ×2 (09:17→23:49)
[2021-12-23] MEDS: Metoprolol Tartrate 100 MG Tablet GT ×2 (09:17→23:49)
[2021-12-23] MEDS: FLUoxetine 20 MG Capsule GT (09:17)
[2021-12-23] MEDS: BACITRACIN 15 GM Tube 1 APPLIC TOPICAL ×2 (09:25→23:51)
[2021-12-23] MEDS: oxyCODONE 5 MG Tablet GT ×2 (09:25→23:49)
[2021-12-23] MEDS: Nystatin Powder 15gm Bottle 1 APPLIC TOPICAL ×2 (09:25→23:50)
[2021-12-23] MEDS: Chlorhexidine 480 ML 15 ML PO ×2 (09:40→23:51)
--- NOTE | 2021-12-23 23:30 | NURSING ---
Pt had 0 residual before peg tube feeding and medication administration.
[2021-12-23 23:42] VITALS: BP 118/78; PULSE 81; RESP 18; TEMP 37.1; O2SAT 99
[2021-12-23 23:49] VITALS: PULSE 81
[2021-12-23] MEDS: Diphenoxylate/Atrop 1 Tablet GT (23:49)
[2021-12-24] MEDS: QUEtiapine 25 MG Tablet GT ×3 (06:48→17:19)
[2021-12-24] MEDS: Acetaminophen 650 MG/20 ML UDC GT ×2 (06:49→13:44)
[2021-12-24] MEDS: Jevity 1.5. 1,000 ML Bottle 300 ML GT ×5 (06:49→23:08)
[2021-12-24] MEDS: Menthol/Lanolin/Calamine/Znox 113 GM Tube 1 APPLIC TOPICAL ×3 (06:49→23:10)
[2021-12-24 07:25] VITALS: BP 111/68; PULSE 77; RESP 16; TEMP 37.2; O2SAT 97
[2021-12-24] MEDS: oxyCODONE 5 MG Tablet GT (09:53)
[2021-12-24] MEDS: Diphenoxylate/Atrop 1 Tablet GT ×2 (09:53→23:08)
[2021-12-24 10:29] VITALS: PULSE 78
[2021-12-24] MEDS: AMANTADINE HCL 50 MG/5ML 100 MG GT ×2 (10:29→23:07)
[2021-12-24] MEDS: Loperamide 2 MG Capsule GT ×3 (10:29→17:19)
[2021-12-24] MEDS: amLODIPine 10 MG Tablet GT (10:29)
[2021-12-24] MEDS: Famotidine 20 MG Tablet GT ×2 (10:29→23:09)
[2021-12-24] MEDS: Metoprolol Tartrate 100 MG Tablet GT ×2 (10:29→23:08)
[2021-12-24] MEDS: Enoxaparin 40 MG/0.4 ML Syringe SC (10:29)
[2021-12-24] MEDS: FLUoxetine 20 MG Capsule GT (10:30)
[2021-12-24] MEDS: Nystatin Powder 15gm Bottle 1 APPLIC TOPICAL ×2 (10:34→23:11)
[2021-12-24] MEDS: BACITRACIN 15 GM Tube 1 APPLIC TOPICAL ×2 (10:34→23:10)
[2021-12-24] MEDS: Chlorhexidine 480 ML 15 ML PO ×2 (10:34→23:11)
[2021-12-24 19:56] VITALS: BP 108/62; PULSE 71; RESP 19; TEMP 37; O2SAT 96
[2021-12-24 23:08] VITALS: BP 108/62; PULSE 71
[2021-12-25] MEDS: QUEtiapine 25 MG Tablet GT ×5 (00:36→22:35)
[2021-12-25] MEDS: Menthol/Lanolin/Calamine/Znox 113 GM Tube 1 APPLIC TOPICAL ×3 (06:37→22:36)
[2021-12-25] MEDS: Jevity 1.5. 1,000 ML Bottle 300 ML GT ×4 (06:37→22:36)
[2021-12-25 07:51] VITALS: BP 100/60; PULSE 78; RESP 16; TEMP 36.6; O2SAT 97
[2021-12-25 10:00] VITALS: PULSE 71; RESP 18; O2SAT 97
[2021-12-25] MEDS: AMANTADINE HCL 50 MG/5ML 100 MG GT ×2 (10:03→22:37)
[2021-12-25] MEDS: Enoxaparin 40 MG/0.4 ML Syringe SC (10:03)
[2021-12-25] MEDS: oxyCODONE 5 MG Tablet GT ×2 (10:03→17:20)
[2021-12-25] MEDS: Famotidine 20 MG Tablet GT ×2 (10:04→22:35)
[2021-12-25 10:05] VITALS: BP 107/70; PULSE 74
[2021-12-25] MEDS: amLODIPine 10 MG Tablet GT (10:05)
[2021-12-25] MEDS: Chlorhexidine 480 ML 15 ML PO ×2 (10:05→22:35)
[2021-12-25] MEDS: Loperamide 2 MG Capsule GT (10:05)
[2021-12-25] MEDS: Metoprolol Tartrate 100 MG Tablet GT ×2 (10:05→22:35)
[2021-12-25] MEDS: BACITRACIN 15 GM Tube 1 APPLIC TOPICAL ×2 (10:05→22:36)
[2021-12-25] MEDS: Diphenoxylate/Atrop 1 Tablet GT ×2 (10:05→22:36)
[2021-12-25] MEDS: FLUoxetine 20 MG Capsule GT (10:05)
[2021-12-25] MEDS: Nystatin Powder 15gm Bottle 1 APPLIC TOPICAL ×2 (10:06→22:35)
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
--- NOTE | 2021-12-25 13:49 | CASEMGMT ---
Addendum entered by Kate Thorpe 12/26/21 14:50: Left message with admissions at [facility] to follow up on referral. Addendum entered by Kate Thorpe 12/26/21 09:41: Spoke with Jennifer, admissions for [facility], they are able to accept pt, however, they do not have current bed availability. That may change day-to-day, but Jennifer recommending [facility]. JAYDON informed her that referral was made yesterday as well. Jennifer [facility], if [facility] can be accepted there, then Jennifer can follow and accept pt at [facility] when bed is available. SW to continue to follow. Original Note: Social Work IDT met with patient and mother for Team meeting. Discussed patient's progress in PT/OT/ST/SN. Educated to [facility] with [employer] 12/27 and continued stay is not guaranteed. Explained to mother, although pt is showing progress in some areas, the therapist's noted, it is not functional progress. Pt is needing x2-3 assist with ADLs and tasks. Pt progressing with diet and speech. However, DC plans need to start being formed. Encouraged for father to begin attending therapy sessions with pt to determine if he can care for pt at home, along with mother. IDT is recommending SNF or TBI unit for pt to continue with skilled therapy. Offered to make referrals to [facility] and [facility]. Mother is still adamant about pt not going to a SNF, however, unable to provide solutions to DC plan. Renovations in home have been not started yet either. Mother did agree for SW to refer to TBI units. SW made referrals via fax to [facility] and [facility]. Will continue to follow. Kate Thorpe, BIANKA ARTIST RELATIONSHIP MANAGER
[2021-12-25 19:44] VITALS: BP 113/69; PULSE 75; RESP 18; TEMP 36.4; O2SAT 99
[2021-12-25 22:29] VITALS: BP 119/61; PULSE 89
[2021-12-25 22:35] VITALS: BP 119/61; PULSE 89
[2021-12-25] MEDS: Psyllium 1 PACKET GT (22:35)
[2021-12-26 05:34] LABS: Hematocrit 29.1 % (37-47); Hemoglobin 9.4 g/dL (12.0-15.0); Mean Corp Hgb Conc 32.3 g/dL (32-36); Mean Corpuscular Hgb 28.5 pg (27.0-32.0); Mean Corpuscular Volume 88.2 fL (81-99); Mean Platelet Vol. 9.1 fl (6.2-12.0); Platelet Count 291 K/mm3 (150-450); RBC Distribution Width CV 15.2 % (11.6-14.6); White Blood Count 4.8 K/mm3 (4.4-11.0)
[2021-12-26 06:02] LABS: Anion Gap 8 (5-15); BUN 21 mg/dL (7-18); BUN/Creat Ratio 34.9 RATIO (10-20); Chloride 101 mmol/L (98-107); EST Glomerular Filtration Rate 115 mL/min (>60); Est Glom Filt Rate - Afr Amer 139 mL/min (>60); Glucose 91 mg/dL (74-106); Magnesium 1.9 mg/dL (1.6-2.6); Phosphorus 4.8 mg/dL (2.5-4.9); Potassium 4.1 mmol/L (3.5-5.1); Sodium Level 137 mmol/L (136-145)
[2021-12-26] MEDS: oxyCODONE 5 MG Tablet GT ×3 (06:42→18:15)
[2021-12-26] MEDS: QUEtiapine 25 MG Tablet GT ×4 (06:42→23:00)
[2021-12-26] MEDS: Jevity 1.5. 1,000 ML Bottle 300 ML GT ×3 (06:43→22:28)
[2021-12-26] MEDS: Menthol/Lanolin/Calamine/Znox 113 GM Tube 1 APPLIC TOPICAL ×3 (06:43→22:17)
[2021-12-26 08:06] VITALS: BP 116/74; PULSE 75; RESP 18; TEMP 36.8; O2SAT 96
[2021-12-26] MEDS: Famotidine 20 MG Tablet GT ×2 (08:41→22:29)
[2021-12-26] MEDS: AMANTADINE HCL 50 MG/5ML 100 MG GT ×2 (08:41→22:28)
[2021-12-26] MEDS: amLODIPine 10 MG Tablet GT (08:41)
[2021-12-26 08:42] VITALS: PULSE 75
[2021-12-26] MEDS: FLUoxetine 20 MG Capsule GT (08:42)
[2021-12-26] MEDS: Metoprolol Tartrate 100 MG Tablet GT ×2 (08:42→22:28)
[2021-12-26] MEDS: Nystatin Powder 15gm Bottle 1 APPLIC TOPICAL ×2 (08:47→22:15)
[2021-12-26] MEDS: Psyllium 1 PACKET GT ×2 (08:49→22:26)
[2021-12-26] MEDS: Enoxaparin 40 MG/0.4 ML Syringe SC (08:53)
[2021-12-26] MEDS: BACITRACIN 15 GM Tube 1 APPLIC TOPICAL ×2 (08:55→22:18)
[2021-12-26] MEDS: Diphenoxylate/Atrop 1 Tablet GT ×2 (10:18→22:33)
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
[2021-12-26] MEDS: Chlorhexidine 480 ML 15 ML PO ×2 (10:22→22:25)
[2021-12-26 11:48] LABS: Mucous, Urine 0 SEEN /hpf (<or=2+)
[2021-12-26 11:54] LABS: Color, Urine Yellow (Yellow); Glucose, Dipstick Normal (Normal); Ketone-Dipstick Negative (Negative); Leukocyte Esterase-Dipstick 500 /ul (Negative); Nitrite-Dipstick Negative (Negative); Occult Blood-Urine Negative /ul (Negative); Protein-Dipstick Negative (Negative); Urine Bilirubin Dipstick Negative (Negative); Urine Clarity Clear (Clear); Urine Urobilinogen Normal (Normal)
[2021-12-26 12:02] LABS: Bacteria RARE /hpf (None Seen); Red Blood Cells-Urine 0-5 SEEN /hpf (0-5); Squamous Epithelial Cells - UA 0-5 SEEN /hpf (5-10); White Blood Cells 5-10 SEEN /hpf (0-5)
[2021-12-26 21:37] VITALS: BP 110/68; PULSE 74; RESP 17; TEMP 36.1; O2SAT 96
[2021-12-26 22:00] VITALS: PULSE 74; RESP 15; O2SAT 95
[2021-12-26] MEDS: Miconazole-7 Nitrate Cream 1 APPLIC VAGINAL (22:26)
[2021-12-26 22:28] VITALS: PULSE 78
[2021-12-27] MEDS: Jevity 1.5. 1,000 ML Bottle 300 ML GT (06:19)
[2021-12-27] MEDS: QUEtiapine 25 MG Tablet GT ×4 (06:19→23:08)
[2021-12-27] MEDS: Menthol/Lanolin/Calamine/Znox 113 GM Tube 1 APPLIC TOPICAL ×3 (06:20→20:27)
[2021-12-27] MEDS: Nystatin Powder 15gm Bottle 1 APPLIC TOPICAL ×2 (06:20→20:28)
[2021-12-27] MEDS: oxyCODONE 5 MG Tablet GT ×3 (06:47→17:01)
[2021-12-27] MEDS: Chlorhexidine 480 ML 15 ML PO ×2 (07:59→20:29)
[2021-12-27] MEDS: Enoxaparin 40 MG/0.4 ML Syringe SC (07:59)
[2021-12-27] MEDS: BACITRACIN 15 GM Tube 1 APPLIC TOPICAL ×2 (08:00→20:27)
[2021-12-27] MEDS: FLUoxetine 20 MG Capsule GT (08:03)
[2021-12-27] MEDS: AMANTADINE HCL 50 MG/5ML 100 MG GT ×2 (08:03→22:07)
[2021-12-27 08:04] VITALS: PULSE 79
[2021-12-27] MEDS: amLODIPine 10 MG Tablet GT (08:04)
[2021-12-27] MEDS: Psyllium 1 PACKET GT ×2 (08:04→22:09)
[2021-12-27] MEDS: Metoprolol Tartrate 100 MG Tablet GT ×2 (08:04→22:08)
[2021-12-27] MEDS: Diphenoxylate/Atrop 1 Tablet GT ×2 (08:05→22:15)
[2021-12-27] MEDS: Famotidine 20 MG Tablet GT ×2 (08:05→22:10)
[2021-12-27 08:31] VITALS: BP 113/53; PULSE 79; RESP 18; TEMP 37.2; O2SAT 92
--- NOTE | 2021-12-27 09:42 | CASEMGMT ---
Social Work Spoke with Bridget, admissions at [facility] - their medical aide reviewed pt's information at length and concluded pt has plateaued, but also it will be a lateral transfer. SW appreciated the review. SW contacted mother to update on [facility] accepting, but unsure when bed would be available, [facility] denial, and final recommendation to refer to [facility]. Mother stated Dr. Foy relayed pt is making great progress and is hopeful insurance will approve more time. SW reminded mother insurance has different views on progress, but will definitely remain hopeful for continued time. However, DC options remain SNF or home. Inquired about father scheduling therapy training. Mother stated that has not happened yet but plans to call today. SW encouraged to get that started. Mother expressed understanding. SW to continue to follow - insurance update today. Kate Thorpe, SOAP MAKER SEED PRODUCTION FIELD SUPERVISOR
[2021-12-27 19:17] VITALS: BP 125/75; PULSE 75; RESP 17; TEMP 36.4; O2SAT 97
[2021-12-27 22:00] VITALS: PULSE 68; RESP 15; O2SAT 96
[2021-12-27 22:08] VITALS: PULSE 70
[2021-12-27] MEDS: Miconazole-7 Nitrate Cream 1 APPLIC VAGINAL (22:09)
[2021-12-27] MEDS: Loperamide 2 MG Capsule GT (23:16)
[2021-12-28] MEDS: Menthol/Lanolin/Calamine/Znox 113 GM Tube 1 APPLIC TOPICAL ×3 (05:03→21:44)
[2021-12-28] MEDS: QUEtiapine 25 MG Tablet GT (05:04)
[2021-12-28] MEDS: Nystatin Powder 15gm Bottle 1 APPLIC TOPICAL ×2 (05:04→21:44)
[2021-12-28] MEDS: oxyCODONE 5 MG Tablet GT ×3 (06:50→18:07)
[2021-12-28 07:31] VITALS: BP 119/71; PULSE 72; RESP 16; TEMP 36.9; O2SAT 94
[2021-12-28] MEDS: AMANTADINE HCL 50 MG/5ML 100 MG GT ×2 (07:54→21:42)
[2021-12-28] MEDS: Enoxaparin 40 MG/0.4 ML Syringe SC (07:54)
[2021-12-28 07:55] VITALS: PULSE 72
[2021-12-28] MEDS: Famotidine 20 MG Tablet GT ×2 (07:55→21:42)
[2021-12-28] MEDS: FLUoxetine 20 MG Capsule GT (07:55)
[2021-12-28] MEDS: Metoprolol Tartrate 100 MG Tablet GT ×2 (07:55→21:50)
[2021-12-28] MEDS: BACITRACIN 15 GM Tube 1 APPLIC TOPICAL ×2 (07:55→21:44)
[2021-12-28] MEDS: amLODIPine 10 MG Tablet GT (07:55)
[2021-12-28] MEDS: Psyllium 1 PACKET GT ×3 (07:56→21:44)
[2021-12-28] MEDS: Chlorhexidine 480 ML 15 ML PO ×2 (07:56→21:44)
[2021-12-28] MEDS: Diphenoxylate/Atrop 1 Tablet GT ×2 (08:01→21:42)
[2021-12-28] MEDS: QUEtiapine 25 MG Tablet 50 MG PO (10:46)
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
[2021-12-28] MEDS: QUEtiapine 25 MG Tablet 50 MG GT ×2 (13:32→20:32)
[2021-12-28] MEDS: Ibuprofen 100 MG/5 ML UDC 400 MG PO ×2 (13:33→20:30)
--- NOTE | 2021-12-28 14:05 | CASEMGMT ---
Social Work SW left message with father to schedule therapy training as he has not called to schedule. Kate Thorpe, SURGICAL ASSIST SLASHER
[2021-12-28] MEDS: Lidocaine 1% (20 ml mdv) 20 ML Vial INFILT (17:12)
[2021-12-28 21:27] VITALS: BP 150/84; PULSE 62; RESP 18; TEMP 36.8; O2SAT 94
--- NOTE | 2021-12-28 21:30 | NURSING ---
Patient residual 30ml. 30ml put back. Medications given through patients peg tube. Patient tolerated well.
[2021-12-28] MEDS: Miconazole-7 Nitrate Cream 1 APPLIC VAGINAL (21:43)
[2021-12-28] MEDS: Arthritis Pain Compound 60 CLICK TUBE TOPICAL (21:43)
[2021-12-28 21:50] VITALS: PULSE 68
[2021-12-29] MEDS: Ibuprofen 100 MG/5 ML UDC 400 MG PO ×3 (04:21→20:35)
[2021-12-29] MEDS: QUEtiapine 25 MG Tablet 50 MG GT ×3 (04:21→20:36)
--- NOTE | 2021-12-29 06:00 | NURSING ---
tient residual oml. Medications given through patients peg tube. Patient tolerated well.
[2021-12-29] MEDS: oxyCODONE 5 MG Tablet 10 MG PO (06:18)
[2021-12-29] MEDS: Psyllium 1 PACKET GT ×3 (06:18→22:15)
[2021-12-29] MEDS: Menthol/Lanolin/Calamine/Znox 113 GM Tube 1 APPLIC TOPICAL ×3 (06:18→20:50)
[2021-12-29] MEDS: Nystatin Powder 15gm Bottle 1 APPLIC TOPICAL ×2 (06:19→20:51)
[2021-12-29 07:45] LABS: PTHIN < 6.3 pg/mL (18.4-80.1)
[2021-12-29 08:29] VITALS: BP 120/77; PULSE 72; RESP 18; TEMP 36.3; O2SAT 96
[2021-12-29 08:42] VITALS: PULSE 72
[2021-12-29] MEDS: Metoprolol Tartrate 100 MG Tablet GT (08:42)
[2021-12-29] MEDS: Famotidine 20 MG Tablet GT ×2 (08:42→22:15)
[2021-12-29] MEDS: amLODIPine 10 MG Tablet GT (08:42)
[2021-12-29] MEDS: Arthritis Pain Compound 60 CLICK TUBE TOPICAL ×2 (08:42→20:48)
[2021-12-29] MEDS: AMANTADINE HCL 50 MG/5ML 100 MG GT ×2 (08:43→20:37)
[2021-12-29] MEDS: Enoxaparin 40 MG/0.4 ML Syringe SC (08:43)
[2021-12-29] MEDS: Diphenoxylate/Atrop 1 Tablet GT ×2 (08:43→22:15)
[2021-12-29] MEDS: Chlorhexidine 480 ML 15 ML PO ×2 (08:44→22:15)
[2021-12-29] MEDS: BACITRACIN 15 GM Tube 1 APPLIC TOPICAL ×2 (08:44→20:51)
--- NOTE | 2021-12-29 09:02 | CASEMGMT ---
Addendum entered by Kate Thorpe 12/29/21 09:13: called in stating he will not be able to attend therapy training today as there are plumbing issues at home. IDT will attempt to reschedule. Original Note: Social Work Notified pt's mother of insurance approval with [employer] 01/03. Will ReTeam Saturday. SW to continue tofollow. Kate Thorpe ,CLAIM SPECIALIST HEAD OF HISTORY
[2021-12-29] MEDS: ALPRAZolam 0.25 MG Tablet PO (09:58)
[2021-12-29 10:00] VITALS: RESP 20
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
[2021-12-29 10:45] LABS: Absolute Lymphocyte Count 2.11 X10^3/uL (0.83-4.51); Absolute Neutrophil Count 2.3 X10^3/uL (2.0-7.7); Basophil# 0.02 X10^3/uL; Basophil% 0.4 % (0-1); Eosinophil# 0.48 X10^3/uL; Hematocrit 32.6 % (37-47); Hemoglobin 10.4 g/dL (12.0-15.0); Lymphocyte # 2.11 X10^3/ul (0.83-4.51); Lymphocyte % 39.4 % (19-41); Mean Corp Hgb Conc 31.9 g/dL (32-36); Mean Corpuscular Volume 87.9 fL (81-99); Mean Platelet Vol. 9.2 fl (6.2-12.0); Monocyte# 0.46 X10^3/uL; Monocyte% 8.6 % (0-10); NRBC Flagged by Analyzer 0 % (0-5); Neutrophil # 2.26 X10^3/uL (2.7-7.7); Neutrophil % 42.2 % (47-70); Platelet Count 388 K/mm3 (150-450); RBC Distribution Width CV 15.1 % (11.6-14.6); RBC Distribution Width SD 48.5 fl (35.1-43.9); Red Blood Count 3.71 M/mm3 (4.2-5.4); White Blood Count 5.4 K/mm3 (4.4-11.0)
[2021-12-29 11:13] LABS: ALB/GLOB Ratio 0.7 RATIO (0.9-2.4); AST(SGOT) 32 U/L (15-37); Alanine Aminotransfer ALT/SGPT 69 U/L (13-56); Albumin, Serum 3.2 g/dL (3.2-5.0); Alkaline Phosphatase 128 U/L (45-117); Anion Gap 6 (5-15); BUN 14 mg/dL (7-18); BUN/Creat Ratio 19.9 RATIO (10-20); Calcium,Total 10.5 mg/dL (8.5-10.1); Chloride 105 mmol/L (98-107); EST Glomerular Filtration Rate 96 mL/min (>60); Est Glom Filt Rate - Afr Amer 116 mL/min (>60); Estimated Creatinine Clearance 90.34 ml/min; Globulin 4.7 g/dL (2.2-4.2); Glucose 81 mg/dL (74-106); Potassium 4.1 mmol/L (3.5-5.1); Protein, Total 7.9 g/dL (6.4-8.2); Sodium Level 139 mmol/L (136-145)
[2021-12-29 11:15] LABS: Vitamin D,25 Hydroxy 44.2 ng/mL
[2021-12-29] MEDS: oxyCODONE 5 MG Tablet GT (17:55)
[2021-12-29 19:19] VITALS: BP 100/58; PULSE 85; RESP 18; TEMP 36.6; O2SAT 95
[2021-12-29] MEDS: clonazePAM 0.5 MG Tablet PO (20:35)
[2021-12-29] MEDS: Miconazole-7 Nitrate Cream 1 APPLIC VAGINAL (20:53)
[2021-12-29 22:00] VITALS: O2SAT 97
[2021-12-29 22:14] VITALS: BP 98/64; PULSE 66
[2021-12-29] MEDS: Jevity 1.5. 1,000 ML Bottle 300 ML GT (22:17)
[2021-12-30] MEDS: oxyCODONE 5 MG Tablet GT (01:31)
--- NOTE | 2021-12-30 01:35 | NURSING ---
Pt more restless and kicking off covers, crying out at times, asked pt if she was in pain, pt states yes. Medicated with Oxy per prn order, pt given thickened water at this time, repositioned in bed for comfort, will continue to monitor.
[2021-12-30] MEDS: Ibuprofen 100 MG/5 ML UDC 400 MG PO ×3 (03:14→20:09)
[2021-12-30] MEDS: QUEtiapine 25 MG Tablet 50 MG GT ×3 (03:15→20:10)
[2021-12-30] MEDS: Menthol/Lanolin/Calamine/Znox 113 GM Tube 1 APPLIC TOPICAL ×3 (03:19→20:22)
[2021-12-30] MEDS: Nystatin Powder 15gm Bottle 1 APPLIC TOPICAL ×2 (03:20→20:23)
[2021-12-30] MEDS: clonazePAM 0.5 MG Tablet PO ×2 (06:11→20:09)
[2021-12-30] MEDS: Psyllium 1 PACKET GT ×3 (06:11→20:33)
[2021-12-30 08:10] VITALS: PULSE 80
[2021-12-30] MEDS: Famotidine 20 MG Tablet GT ×2 (08:10→20:34)
[2021-12-30] MEDS: Metoprolol Tartrate 100 MG Tablet GT (08:10)
[2021-12-30] MEDS: Enoxaparin 40 MG/0.4 ML Syringe SC (08:10)
[2021-12-30] MEDS: amLODIPine 10 MG Tablet GT (08:10)
[2021-12-30] MEDS: oxyCODONE 5 MG Tablet 10 MG PO (08:10)
[2021-12-30] MEDS: AMANTADINE HCL 50 MG/5ML 100 MG GT ×2 (08:10→20:31)
[2021-12-30] MEDS: Arthritis Pain Compound 60 CLICK TUBE TOPICAL ×2 (08:11→20:24)
[2021-12-30] MEDS: BACITRACIN 15 GM Tube 1 APPLIC TOPICAL ×2 (08:11→20:32)
[2021-12-30] MEDS: Jevity 1.5. 1,000 ML Bottle 300 ML GT ×3 (08:21→21:09)
[2021-12-30 08:32] VITALS: BP 110/71; PULSE 75; RESP 18; TEMP 36; O2SAT 98
[2021-12-30] MEDS: Chlorhexidine 480 ML 15 ML PO ×2 (08:32→20:34)
[2021-12-30] MEDS: Loperamide 2 MG Capsule GT ×2 (08:33→20:35)
[2021-12-30] MEDS: Diphenoxylate/Atrop 1 Tablet GT ×2 (09:04→21:08)
[2021-12-30 19:07] VITALS: BP 103/73; PULSE 73; RESP 16; TEMP 36.7; O2SAT 95
[2021-12-30 20:33] VITALS: PULSE 71
[2021-12-30] MEDS: Metoprolol Tartrate 50 MG Tablet GT (20:33)
[2021-12-30] MEDS: Miconazole-7 Nitrate Cream 1 APPLIC VAGINAL (20:33)
[2021-12-30 22:00] VITALS: PULSE 72; RESP 18; O2SAT 95
[2021-12-31] MEDS: Ibuprofen 100 MG/5 ML UDC 400 MG PO ×3 (02:30→20:20)
[2021-12-31] MEDS: QUEtiapine 25 MG Tablet 50 MG GT ×3 (02:39→20:19)
[2021-12-31] MEDS: Menthol/Lanolin/Calamine/Znox 113 GM Tube 1 APPLIC TOPICAL ×3 (05:00→21:18)
[2021-12-31] MEDS: BACITRACIN 15 GM Tube 1 APPLIC TOPICAL ×2 (05:00→21:18)
[2021-12-31] MEDS: Nystatin Powder 15gm Bottle 1 APPLIC TOPICAL ×2 (05:01→21:25)
[2021-12-31] MEDS: Psyllium 1 PACKET GT ×3 (05:01→21:19)
[2021-12-31] MEDS: oxyCODONE 5 MG Tablet 10 MG PO (06:12)
[2021-12-31] MEDS: clonazePAM 0.5 MG Tablet PO ×2 (06:12→20:25)
[2021-12-31 10:00] VITALS: BP 109/65; PULSE 71; RESP 16; TEMP 36.3; O2SAT 93
[2021-12-31] MEDS: Diphenoxylate/Atrop 1 Tablet GT ×2 (10:13→21:25)
[2021-12-31] MEDS: AMANTADINE HCL 50 MG/5ML 100 MG GT ×2 (10:13→21:15)
[2021-12-31 10:14] VITALS: PULSE 77
[2021-12-31] MEDS: Enoxaparin 40 MG/0.4 ML Syringe SC (10:14)
[2021-12-31] MEDS: Famotidine 20 MG Tablet GT ×2 (10:14→21:25)
[2021-12-31] MEDS: Metoprolol Tartrate 50 MG Tablet GT ×2 (10:14→21:19)
[2021-12-31] MEDS: Arthritis Pain Compound 60 CLICK TUBE TOPICAL ×2 (10:14→21:15)
[2021-12-31] MEDS: amLODIPine 10 MG Tablet GT (10:14)
[2021-12-31] MEDS: Jevity 1.5. 1,000 ML Bottle 300 ML GT ×3 (10:14→21:18)
[2021-12-31] MEDS: Chlorhexidine 480 ML 15 ML PO ×2 (10:15→21:25)
[2021-12-31] MEDS: DULoxetine Hcl 30 MG Capsule PO (11:37)
[2021-12-31] MEDS: Loperamide 2 MG Capsule GT (11:40)
--- NOTE | 2021-12-31 15:24 | NURSING ---
Patient screams at times, shows some signs of agitation but quickly resolves with staff 1:1. Family supportive. Max x 2 assist stand pivot. Patient provides very poor assist with transfers due to anxiety. Incontinence care provided when needed. Patient able to follow some commands.
[2021-12-31 19:34] VITALS: BP 97/55; PULSE 72; RESP 16; TEMP 36.5; O2SAT 97
[2021-12-31 21:19] VITALS: PULSE 70
[2021-12-31] MEDS: Miconazole-7 Nitrate Cream 1 APPLIC VAGINAL (21:22)
[2021-12-31 22:00] VITALS: PULSE 70; RESP 17; O2SAT 96
[2022-01-01] MEDS: QUEtiapine 25 MG Tablet 50 MG GT ×3 (02:54→20:00)
[2022-01-01] MEDS: Ibuprofen 100 MG/5 ML UDC 400 MG PO ×3 (02:54→20:00)
[2022-01-01] MEDS: BACITRACIN 15 GM Tube 1 APPLIC TOPICAL (05:13)
[2022-01-01] MEDS: Menthol/Lanolin/Calamine/Znox 113 GM Tube 1 APPLIC TOPICAL ×3 (05:14→20:11)
[2022-01-01] MEDS: Psyllium 1 PACKET GT ×3 (05:21→20:13)
[2022-01-01] MEDS: Nystatin Powder 15gm Bottle 1 APPLIC TOPICAL ×2 (05:21→20:13)
[2022-01-01] MEDS: clonazePAM 0.5 MG Tablet PO ×2 (06:32→20:00)
[2022-01-01] MEDS: oxyCODONE 5 MG Tablet 10 MG PO (06:33)
[2022-01-01 07:20] VITALS: BP 104/62; PULSE 65; RESP 16; TEMP 36.3; O2SAT 97
[2022-01-01] MEDS: Jevity 1.5. 1,000 ML Bottle 300 ML GT ×3 (08:25→20:28)
[2022-01-01] MEDS: Loperamide 2 MG Capsule GT (08:27)
[2022-01-01] MEDS: Enoxaparin 40 MG/0.4 ML Syringe SC (08:27)
[2022-01-01] MEDS: AMANTADINE HCL 50 MG/5ML 100 MG GT ×2 (08:27→20:09)
[2022-01-01] MEDS: Famotidine 20 MG Tablet GT ×2 (08:28→20:14)
[2022-01-01] MEDS: DULoxetine Hcl 30 MG Capsule PO (08:29)
[2022-01-01] MEDS: amLODIPine 10 MG Tablet GT (08:29)
[2022-01-01 08:30] VITALS: PULSE 65
[2022-01-01] MEDS: Arthritis Pain Compound 60 CLICK TUBE TOPICAL ×2 (08:30→20:10)
[2022-01-01] MEDS: Metoprolol Tartrate 50 MG Tablet GT ×2 (08:30→20:12)
[2022-01-01] MEDS: Chlorhexidine 480 ML 15 ML PO ×2 (08:37→20:14)
[2022-01-01] MEDS: Diphenoxylate/Atrop 1 Tablet GT ×2 (10:29→20:28)
--- NOTE | 2022-01-01 12:49 | CASEMGMT ---
Social Work IDT met with patient, mother and father for Team meeting. Discussed patient's progress in PT/OT/ST/SN. Educated to [employer] insurance with NRD 01/03 and continued stay is not guaranteed. IDT stressed pt is not ready and able to DC home. Father has not completed therapy training and uses a cane to ambulate. Offered to provide list of SNFs to choose from and start making referrals today. Parents agreed for SNF referral. Email sent of SNF list via [employer]. Educated to insurance can deny SNF stay and suggested for parents to discuss plan if that happens. SW to continue to follow. Kate Thorpe ,CRNP MANAGER ENVIRONMENTAL HEALTH
[2022-01-01 15:08] LABS: Albumin 3.5 g/dL (2.9-4.4); Alpha-1-Globulins 0.3 g/dL (0.0-0.4); Alpha-2-Globulins 0.9 g/dL (0.4-1.0); Gamma Globulin 2.1 g/dL (0.4-1.8); Immunoglobulin A 298 mg/dL (87-352); Immunoglobulin G 1980 mg/dL (586-1602); Immunoglobulin M 272 mg/dL (26-217); PROEL- TOTAL PROTEIN 7.6 g/dL (6.0-8.5)
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
[2022-01-01] MEDS: Mupirocin Ointment 22gm Tube 1 APPLIC TOPICAL (18:24)
[2022-01-01 19:51] VITALS: BP 101/60; PULSE 63; RESP 15; TEMP 36.5; O2SAT 97
[2022-01-01 20:12] VITALS: PULSE 63
[2022-01-01] MEDS: Miconazole-7 Nitrate Cream 1 APPLIC VAGINAL (20:13)
[2022-01-01 20:40] VITALS: PULSE 72; RESP 15; O2SAT 95
[2022-01-01] MEDS: Acetaminophen 650 MG/20 ML UDC 1000 MG GT (21:54)
[2022-01-02] MEDS: Mupirocin Ointment 22gm Tube 1 APPLIC TOPICAL ×4 (00:34→18:37)
[2022-01-02] MEDS: Ibuprofen 100 MG/5 ML UDC 400 MG PO ×3 (03:49→20:10)
[2022-01-02] MEDS: Menthol/Lanolin/Calamine/Znox 113 GM Tube 1 APPLIC TOPICAL ×3 (05:18→21:05)
[2022-01-02] MEDS: Nystatin Powder 15gm Bottle 1 APPLIC TOPICAL ×2 (05:18→21:05)
[2022-01-02] MEDS: Psyllium 1 PACKET GT ×3 (05:20→21:05)
[2022-01-02] MEDS: QUEtiapine 25 MG Tablet GT ×2 (05:20→15:18)
[2022-01-02] MEDS: Acetaminophen 650 MG/20 ML UDC 1000 MG GT ×3 (05:20→21:04)
[2022-01-02] MEDS: clonazePAM 0.5 MG Tablet PO ×2 (06:14→20:10)
[2022-01-02] MEDS: oxyCODONE 5 MG Tablet PO (06:15)
[2022-01-02 07:20] VITALS: BP 108/66; PULSE 72; RESP 16; TEMP 36.9; O2SAT 99
[2022-01-02 08:27] VITALS: PULSE 72
[2022-01-02] MEDS: AMANTADINE HCL 50 MG/5ML 100 MG GT ×2 (08:27→21:06)
[2022-01-02] MEDS: Enoxaparin 40 MG/0.4 ML Syringe SC (08:27)
[2022-01-02] MEDS: Metoprolol Tartrate 50 MG Tablet GT ×2 (08:27→21:05)
[2022-01-02] MEDS: amLODIPine 10 MG Tablet GT (08:27)
[2022-01-02] MEDS: DULoxetine Hcl 30 MG Capsule PO (08:27)
[2022-01-02] MEDS: Arthritis Pain Compound 60 CLICK TUBE TOPICAL ×2 (08:27→21:06)
[2022-01-02] MEDS: Famotidine 20 MG Tablet GT ×2 (08:27→21:04)
[2022-01-02] MEDS: Chlorhexidine 480 ML 15 ML PO ×2 (08:28→21:04)
[2022-01-02] MEDS: Diphenoxylate/Atrop 1 Tablet GT ×2 (08:33→21:09)
[2022-01-02] MEDS: oxyCODONE 5 MG Tablet GT (15:49)
[2022-01-02] MEDS: Loperamide 2 MG Capsule GT ×2 (15:49→22:43)
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
[2022-01-02] MEDS: QUEtiapine 25 MG Tablet 50 MG GT (20:11)
[2022-01-02 20:14] VITALS: BP 110/66; PULSE 70; RESP 16; TEMP 36.9; O2SAT 97
[2022-01-02 20:41] VITALS: PULSE 70; RESP 16; O2SAT 96
[2022-01-02 21:05] VITALS: PULSE 70
[2022-01-02] MEDS: Jevity 1.5. 1,000 ML Bottle 300 ML GT (21:05)
[2022-01-03] MEDS: Mupirocin Ointment 22gm Tube 1 APPLIC TOPICAL ×5 (00:08→23:00)
[2022-01-03] MEDS: Ibuprofen 100 MG/5 ML UDC 400 MG PO ×3 (03:26→20:46)
[2022-01-03] MEDS: Acetaminophen 650 MG/20 ML UDC 1000 MG GT ×3 (05:51→21:51)
[2022-01-03] MEDS: QUEtiapine 25 MG Tablet GT ×2 (05:52→13:02)
[2022-01-03] MEDS: Psyllium 1 PACKET GT ×3 (05:52→21:51)
[2022-01-03] MEDS: Nystatin Powder 15gm Bottle 1 APPLIC TOPICAL ×2 (05:52→20:54)
[2022-01-03] MEDS: Menthol/Lanolin/Calamine/Znox 113 GM Tube 1 APPLIC TOPICAL ×3 (05:53→20:53)
[2022-01-03 05:58] LABS: Hematocrit 31.4 % (37-47); Hemoglobin 10.1 g/dL (12.0-15.0)
[2022-01-03] MEDS: clonazePAM 0.5 MG Tablet PO ×2 (06:03→20:46)
[2022-01-03] MEDS: oxyCODONE 5 MG Tablet PO (06:05)
[2022-01-03 06:40] LABS: Anion Gap 7 (5-15); BUN 21 mg/dL (7-18); Calcium,Total 10.2 mg/dL (8.5-10.1); Chloride 101 mmol/L (98-107); Creatinine, Serum 0.72 mg/dL (0.55-1.02); EST Glomerular Filtration Rate 93 mL/min (>60); Est Glom Filt Rate - Afr Amer 113 mL/min (>60); Estimated Creatinine Clearance 89.09 ml/min; Glucose 70 mg/dL (74-106); Potassium 4.3 mmol/L (3.5-5.1); Sodium Level 135 mmol/L (136-145)
[2022-01-03 07:48] VITALS: BP 122/88; PULSE 67; RESP 18; TEMP 36.5; O2SAT 96
[2022-01-03 08:05] VITALS: PULSE 67
[2022-01-03] MEDS: Famotidine 20 MG Tablet GT ×2 (08:05→21:50)
[2022-01-03] MEDS: Metoprolol Tartrate 50 MG Tablet GT ×2 (08:05→21:51)
[2022-01-03] MEDS: amLODIPine 10 MG Tablet GT (08:05)
[2022-01-03] MEDS: DULoxetine Hcl 30 MG Capsule PO (08:06)
[2022-01-03] MEDS: Arthritis Pain Compound 60 CLICK TUBE TOPICAL ×2 (08:06→20:52)
[2022-01-03] MEDS: Enoxaparin 40 MG/0.4 ML Syringe SC (08:06)
[2022-01-03] MEDS: AMANTADINE HCL 50 MG/5ML 100 MG GT ×2 (08:06→20:50)
[2022-01-03] MEDS: Chlorhexidine 480 ML 15 ML PO ×2 (08:08→20:55)
[2022-01-03] MEDS: Diphenoxylate/Atrop 1 Tablet GT ×2 (08:12→21:51)
[2022-01-03] MEDS: oxyCODONE 5 MG Tablet GT (17:03)
[2022-01-03 20:45] VITALS: O2SAT 94
[2022-01-03 20:58] VITALS: BP 94/55; PULSE 66; RESP 16; TEMP 36.5; O2SAT 98
[2022-01-03] MEDS: QUEtiapine 25 MG Tablet 50 MG GT (21:50)
[2022-01-03 21:51] VITALS: BP 117/71; PULSE 78
[2022-01-03] MEDS: Jevity 1.5. 1,000 ML Bottle 300 ML GT (22:06)
[2022-01-04] MEDS: Ibuprofen 100 MG/5 ML UDC 400 MG PO ×3 (03:19→20:55)
[2022-01-04] MEDS: Acetaminophen 650 MG/20 ML UDC 1000 MG GT ×3 (06:39→22:07)
[2022-01-04] MEDS: Mupirocin Ointment 22gm Tube 1 APPLIC TOPICAL ×3 (06:40→17:36)
[2022-01-04] MEDS: QUEtiapine 25 MG Tablet GT ×2 (06:40→20:57)
[2022-01-04] MEDS: Nystatin Powder 15gm Bottle 1 APPLIC TOPICAL ×2 (06:40→22:05)
[2022-01-04] MEDS: Psyllium 1 PACKET GT ×3 (06:40→22:02)
[2022-01-04] MEDS: Menthol/Lanolin/Calamine/Znox 113 GM Tube 1 APPLIC TOPICAL ×3 (06:40→22:04)
[2022-01-04] MEDS: clonazePAM 0.5 MG Tablet PO ×2 (06:40→18:30)
[2022-01-04 08:21] VITALS: BP 111/79; PULSE 77
[2022-01-04] MEDS: Enoxaparin 40 MG/0.4 ML Syringe SC (08:21)
[2022-01-04] MEDS: amLODIPine 10 MG Tablet GT (08:21)
[2022-01-04] MEDS: Diphenoxylate/Atrop 1 Tablet GT ×2 (08:21→22:03)
[2022-01-04] MEDS: Famotidine 20 MG Tablet GT ×2 (08:21→22:02)
[2022-01-04] MEDS: Metoprolol Tartrate 50 MG Tablet GT ×2 (08:21→22:03)
[2022-01-04] MEDS: Jevity 1.5. 1,000 ML Bottle 300 ML GT ×2 (08:22→22:03)
[2022-01-04] MEDS: AMANTADINE HCL 50 MG/5ML 100 MG GT ×2 (08:22→22:02)
[2022-01-04] MEDS: DULoxetine Hcl 30 MG Capsule PO (08:22)
[2022-01-04] MEDS: oxyCODONE 5 MG Tablet PO (08:22)
[2022-01-04] MEDS: Chlorhexidine 480 ML 15 ML PO ×2 (08:23→22:05)
[2022-01-04] MEDS: Arthritis Pain Compound 60 CLICK TUBE TOPICAL ×2 (08:32→22:04)
[2022-01-04 09:17] VITALS: BP 111/79; PULSE 77; RESP 16; TEMP 36.6; O2SAT 97
[2022-01-04 22:00] VITALS: BP 148/85; PULSE 81; RESP 16; TEMP 36.5; O2SAT 96
[2022-01-04 22:03] VITALS: BP 148/85; PULSE 81
[2022-01-05] MEDS: Mupirocin Ointment 22gm Tube 1 APPLIC TOPICAL ×4 (00:09→17:46)
[2022-01-05] MEDS: Ibuprofen 100 MG/5 ML UDC 400 MG PO ×3 (03:30→20:07)
--- NOTE | 2022-01-05 03:39 | NURSING ---
REVIEWED AND AGREE WITH PRESS SECRETARY'S FUNCTIONAL ASSESSMENT AND HANDOFF CHARTING.
[2022-01-05] MEDS: Psyllium 1 PACKET GT ×3 (06:01→22:37)
[2022-01-05] MEDS: Menthol/Lanolin/Calamine/Znox 113 GM Tube 1 APPLIC TOPICAL ×3 (06:01→22:39)
[2022-01-05] MEDS: Nystatin Powder 15gm Bottle 1 APPLIC TOPICAL ×2 (06:01→22:39)
[2022-01-05] MEDS: Acetaminophen 650 MG/20 ML UDC 1000 MG GT ×3 (06:02→22:37)
[2022-01-05 08:49] VITALS: BP 108/65; PULSE 60
[2022-01-05] MEDS: clonazePAM 0.5 MG Tablet PO ×2 (08:49→20:07)
[2022-01-05] MEDS: AMANTADINE HCL 50 MG/5ML 100 MG GT ×2 (08:49→22:37)
[2022-01-05] MEDS: Metoprolol Tartrate 50 MG Tablet GT ×2 (08:49→22:38)
[2022-01-05] MEDS: Diphenoxylate/Atrop 1 Tablet GT ×2 (08:49→22:36)
[2022-01-05] MEDS: amLODIPine 10 MG Tablet GT (08:50)
[2022-01-05] MEDS: DULoxetine Hcl 30 MG Capsule PO (08:50)
[2022-01-05] MEDS: Famotidine 20 MG Tablet GT ×2 (08:50→22:38)
[2022-01-05] MEDS: oxyCODONE 5 MG Tablet PO (08:50)
[2022-01-05] MEDS: Chlorhexidine 480 ML 15 ML PO ×2 (08:51→22:39)
[2022-01-05] MEDS: Enoxaparin 40 MG/0.4 ML Syringe SC (08:51)
[2022-01-05 09:16] VITALS: BP 108/65; PULSE 60; RESP 16; TEMP 36.2; O2SAT 97
[2022-01-05] MEDS: Arthritis Pain Compound 60 CLICK TUBE TOPICAL ×2 (11:13→22:36)
[2022-01-05 22:00] VITALS: BP 117/62; PULSE 67; RESP 16; TEMP 36.3; O2SAT 100
[2022-01-05 22:38] VITALS: BP 117/62; PULSE 67
[2022-01-05] MEDS: QUEtiapine 25 MG Tablet GT (22:38)
[2022-01-05] MEDS: Jevity 1.5. 1,000 ML Bottle 300 ML GT (22:39)
[2022-01-06] MEDS: Ibuprofen 100 MG/5 ML UDC 400 MG PO ×3 (03:23→19:46)
[2022-01-06] MEDS: Mupirocin Ointment 22gm Tube 1 APPLIC TOPICAL ×4 (03:24→18:30)
[2022-01-06] MEDS: Acetaminophen 650 MG/20 ML UDC 1000 MG GT ×3 (06:22→22:23)
[2022-01-06] MEDS: Psyllium 1 PACKET GT ×3 (06:22→22:22)
[2022-01-06] MEDS: clonazePAM 0.5 MG Tablet PO ×2 (06:23→19:46)
[2022-01-06] MEDS: oxyCODONE 5 MG Tablet PO (06:23)
[2022-01-06] MEDS: Menthol/Lanolin/Calamine/Znox 113 GM Tube 1 APPLIC TOPICAL ×3 (06:24→19:51)
[2022-01-06] MEDS: Nystatin Powder 15gm Bottle 1 APPLIC TOPICAL ×2 (06:24→19:52)
[2022-01-06] MEDS: Diphenoxylate/Atrop 1 Tablet GT ×2 (07:57→22:22)
[2022-01-06 07:58] VITALS: BP 116/69; PULSE 61
[2022-01-06] MEDS: Metoprolol Tartrate 50 MG Tablet GT ×2 (07:58→19:53)
[2022-01-06] MEDS: Arthritis Pain Compound 60 CLICK TUBE TOPICAL ×2 (07:58→19:56)
[2022-01-06] MEDS: amLODIPine 10 MG Tablet GT (07:58)
[2022-01-06] MEDS: Famotidine 20 MG Tablet GT ×2 (07:58→19:53)
[2022-01-06] MEDS: AMANTADINE HCL 50 MG/5ML 100 MG GT ×2 (07:59→22:22)
[2022-01-06] MEDS: Enoxaparin 40 MG/0.4 ML Syringe SC (07:59)
[2022-01-06 08:00] VITALS: BP 116/69; PULSE 61; RESP 16; TEMP 37.3; O2SAT 95
--- NOTE | 2022-01-06 08:16 | NURSING ---
pt groggy this am and keeps eyes closed. dozes off during peg flush with medication administration. despite sitting up in bed unable to stay alert for breakfast at this time. slow to arouse. fight with nurse in pulling covers back up when peg flushed. will try to offer breakfast after other pts rounded on.
[2022-01-06] MEDS: Chlorhexidine 480 ML 15 ML PO ×2 (10:15→19:56)
[2022-01-06] MEDS: oxyCODONE 5 MG Tablet GT (11:49)
[2022-01-06 19:53] VITALS: BP 128/81; PULSE 76
[2022-01-06 19:59] VITALS: BP 128/81; PULSE 76; RESP 20; TEMP 36.6; O2SAT 97
[2022-01-06 22:00] VITALS: O2SAT 97
[2022-01-06] MEDS: QUEtiapine 25 MG Tablet GT (22:23)
[2022-01-06] MEDS: Jevity 1.5. 1,000 ML Bottle 300 ML GT (22:25)
[2022-01-07] MEDS: Ibuprofen 100 MG/5 ML UDC 400 MG PO ×3 (03:08→19:46)
[2022-01-07] MEDS: Nystatin Powder 15gm Bottle 1 APPLIC TOPICAL ×2 (06:41→20:49)
[2022-01-07] MEDS: Menthol/Lanolin/Calamine/Znox 113 GM Tube 1 APPLIC TOPICAL ×3 (06:41→20:49)
[2022-01-07] MEDS: Psyllium 1 PACKET GT ×3 (06:41→21:14)
[2022-01-07] MEDS: Acetaminophen 650 MG/20 ML UDC 1000 MG GT ×3 (06:41→21:12)
[2022-01-07] MEDS: oxyCODONE 5 MG Tablet PO (06:41)
[2022-01-07] MEDS: Mupirocin Ointment 22gm Tube 1 APPLIC TOPICAL ×5 (06:42→23:40)
[2022-01-07 07:18] VITALS: BP 103/54; PULSE 67; RESP 16; TEMP 36.1; O2SAT 95
[2022-01-07 08:23] VITALS: PULSE 67
[2022-01-07] MEDS: Metoprolol Tartrate 50 MG Tablet GT ×2 (08:23→21:14)
[2022-01-07] MEDS: Famotidine 20 MG Tablet GT ×2 (08:23→21:11)
[2022-01-07] MEDS: Enoxaparin 40 MG/0.4 ML Syringe SC (08:23)
[2022-01-07] MEDS: amLODIPine 10 MG Tablet GT (08:24)
[2022-01-07] MEDS: DULoxetine Hcl 30 MG Capsule PO (08:24)
[2022-01-07] MEDS: Arthritis Pain Compound 60 CLICK TUBE TOPICAL ×2 (08:25→20:59)
[2022-01-07] MEDS: AMANTADINE HCL 50 MG/5ML 100 MG GT ×2 (08:25→21:11)
[2022-01-07] MEDS: Chlorhexidine 480 ML 15 ML PO ×2 (08:29→21:12)
[2022-01-07] MEDS: Diphenoxylate/Atrop 1 Tablet GT ×2 (08:36→21:34)
[2022-01-07] MEDS: clonazePAM 0.5 MG Tablet PO ×2 (08:36→19:47)
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
[2022-01-07] MEDS: oxyCODONE 5 MG Tablet GT ×2 (14:32→18:46)
--- NOTE | 2022-01-07 16:52 | NURSING ---
This nurse and nurse Debbie went into room to check pt as she was yelling out, family in room. Asked pt's mother if she would like to assist in changing pt, she agreed but then decided to stand back and observe. Encouraged her to feed pt dinner with staff in room to assist as needed.
[2022-01-07 21:03] VITALS: BP 119/66; PULSE 76; RESP 18; TEMP 37.2; O2SAT 99
[2022-01-07 21:04] VITALS: O2SAT 99
[2022-01-07] MEDS: QUEtiapine 25 MG Tablet GT (21:12)
[2022-01-07 21:14] VITALS: BP 119/66; PULSE 76
[2022-01-07] MEDS: Jevity 1.5. 1,000 ML Bottle 300 ML GT (21:14)
[2022-01-08] MEDS: Ibuprofen 100 MG/5 ML UDC 400 MG PO ×3 (03:09→20:19)
[2022-01-08] MEDS: oxyCODONE 5 MG Tablet PO (06:15)
[2022-01-08] MEDS: Menthol/Lanolin/Calamine/Znox 113 GM Tube 1 APPLIC TOPICAL ×3 (06:16→20:34)
[2022-01-08] MEDS: Acetaminophen 650 MG/20 ML UDC 1000 MG GT ×3 (06:16→22:41)
[2022-01-08] MEDS: Nystatin Powder 15gm Bottle 1 APPLIC TOPICAL ×2 (06:16→20:35)
[2022-01-08] MEDS: Psyllium 1 PACKET GT ×3 (06:16→21:06)
[2022-01-08] MEDS: Mupirocin Ointment 22gm Tube 1 APPLIC TOPICAL ×3 (06:16→17:13)
[2022-01-08] MEDS: clonazePAM 0.5 MG Tablet PO ×2 (08:16→18:07)
[2022-01-08] MEDS: Enoxaparin 40 MG/0.4 ML Syringe SC (08:22)
[2022-01-08] MEDS: Arthritis Pain Compound 60 CLICK TUBE TOPICAL ×2 (08:25→21:07)
[2022-01-08 08:27] VITALS: PULSE 74
[2022-01-08] MEDS: AMANTADINE HCL 50 MG/5ML 100 MG GT ×2 (08:27→21:07)
[2022-01-08] MEDS: Famotidine 20 MG Tablet GT ×2 (08:27→21:06)
[2022-01-08] MEDS: Metoprolol Tartrate 50 MG Tablet GT ×2 (08:27→21:06)
[2022-01-08] MEDS: amLODIPine 10 MG Tablet GT (08:27)
[2022-01-08] MEDS: DULoxetine Hcl 30 MG Capsule PO (08:28)
[2022-01-08 08:58] VITALS: BP 112/75; PULSE 74; RESP 18; TEMP 36.5; O2SAT 99
[2022-01-08] MEDS: Diphenoxylate/Atrop 1 Tablet GT ×2 (09:04→21:06)
[2022-01-08] MEDS: Chlorhexidine 480 ML 15 ML PO ×2 (12:18→20:34)
--- NOTE | 2022-01-08 12:52 | CASEMGMT ---
Addendum entered by Kate Thorpe 01/09/22 16:18: Contacted mother to update that [facility] is unable to accept pt. Mother replied well it's early yet, but do they not have beds or was it medical? informed mother WVM stated pt exceeds care needs. SW offered to discuss next steps, sending another SNF list, or assisting with coordinating other options, for DC. Mother declined and stated she will think about what's next and thanked this worker. SW to continue to follow. Original Note: Social Work IDT met with patient, mother and father for Team meeting. Discussed patient's progress in PT/OT/ST/SN. Educated to [facility] Information insurance with NRD 01/17 and continued stay is not guaranteed with each review. Inquired to parents about DC plan remains SNF. Parents confirmed. Requested parents select SNF choices today for this worker to start making referrals. Mother stated only choice is [facility] right now. SW asked if a referral can be made. Mother agreed. SW to update mother with outcome. Will ReTeam next week. SW to continue to follow. Kate Thorpe, RN NIGHT SALESPERSON [employer]
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
[2022-01-08] MEDS: Jevity 1.5. 1,000 ML Bottle 300 ML GT ×2 (17:14→22:46)
[2022-01-08 19:41] VITALS: BP 113/67; PULSE 69; RESP 16; TEMP 36.6; O2SAT 94
[2022-01-08] MEDS: QUEtiapine 25 MG Tablet GT (20:37)
[2022-01-08 21:06] VITALS: PULSE 70
[2022-01-09] MEDS: Mupirocin Ointment 22gm Tube 1 APPLIC TOPICAL ×4 (00:35→23:04)
[2022-01-09] MEDS: Menthol/Lanolin/Calamine/Znox 113 GM Tube 1 APPLIC TOPICAL ×3 (03:16→20:58)
[2022-01-09] MEDS: Nystatin Powder 15gm Bottle 1 APPLIC TOPICAL ×2 (03:16→21:00)
[2022-01-09] MEDS: Ibuprofen 100 MG/5 ML UDC 400 MG PO ×3 (03:17→20:27)
[2022-01-09] MEDS: Acetaminophen 650 MG/20 ML UDC 1000 MG GT ×3 (06:23→21:01)
[2022-01-09] MEDS: Psyllium 1 PACKET GT ×3 (06:23→20:59)
[2022-01-09] MEDS: oxyCODONE 5 MG Tablet PO (06:24)
[2022-01-09 07:42] VITALS: BP 125/73; PULSE 71; RESP 16; TEMP 36.8; O2SAT 95
[2022-01-09] MEDS: Arthritis Pain Compound 60 CLICK TUBE TOPICAL ×2 (08:43→20:37)
[2022-01-09] MEDS: Diphenoxylate/Atrop 1 Tablet GT ×2 (08:51→21:00)
[2022-01-09 08:52] VITALS: BP 125/73; PULSE 71
[2022-01-09] MEDS: AMANTADINE HCL 50 MG/5ML 100 MG GT ×2 (08:52→20:59)
[2022-01-09] MEDS: Enoxaparin 40 MG/0.4 ML Syringe SC (08:52)
[2022-01-09] MEDS: amLODIPine 10 MG Tablet GT (08:52)
[2022-01-09] MEDS: Metoprolol Tartrate 50 MG Tablet GT ×2 (08:52→20:59)
[2022-01-09] MEDS: Famotidine 20 MG Tablet GT ×2 (08:52→21:00)
[2022-01-09] MEDS: DULoxetine Hcl 20 MG Capsule 40 MG PO (08:53)
[2022-01-09] MEDS: Chlorhexidine 480 ML 15 ML PO ×2 (08:54→21:00)
[2022-01-09] MEDS: oxyCODONE 5 MG Tablet GT (13:36)
[2022-01-09 19:22] VITALS: BP 120/79; PULSE 62; RESP 18; TEMP 36.7; O2SAT 95
[2022-01-09] MEDS: clonazePAM 0.5 MG Tablet PO (19:53)
[2022-01-09] MEDS: QUEtiapine 25 MG Tablet GT (20:16)
[2022-01-09 20:59] VITALS: PULSE 63
[2022-01-09] MEDS: Jevity 1.5. 1,000 ML Bottle 300 ML GT (20:59)
[2022-01-10] MEDS: Ibuprofen 100 MG/5 ML UDC 400 MG PO ×3 (02:30→18:46)
[2022-01-10] MEDS: Psyllium 1 PACKET GT ×2 (05:09→21:37)
[2022-01-10] MEDS: Menthol/Lanolin/Calamine/Znox 113 GM Tube 1 APPLIC TOPICAL ×3 (05:09→21:37)
[2022-01-10] MEDS: Mupirocin Ointment 22gm Tube 1 APPLIC TOPICAL ×4 (05:09→23:05)
[2022-01-10] MEDS: Nystatin Powder 15gm Bottle 1 APPLIC TOPICAL ×2 (05:10→21:38)
[2022-01-10] MEDS: Acetaminophen 650 MG/20 ML UDC 1000 MG GT ×3 (05:10→21:36)
[2022-01-10] MEDS: oxyCODONE 5 MG Tablet PO (06:37)
[2022-01-10 08:24] VITALS: BP 123/72; PULSE 63; RESP 16; TEMP 36.6; O2SAT 94
[2022-01-10 11:09] VITALS: BP 123/72; PULSE 63
[2022-01-10] MEDS: AMANTADINE HCL 50 MG/5ML 100 MG GT ×2 (11:09→21:38)
[2022-01-10] MEDS: amLODIPine 10 MG Tablet GT (11:09)
[2022-01-10] MEDS: oxyCODONE 5 MG Tablet GT ×2 (11:09→16:28)
[2022-01-10] MEDS: Diphenoxylate/Atrop 1 Tablet GT ×2 (11:09→22:00)
[2022-01-10] MEDS: Metoprolol Tartrate 50 MG Tablet GT ×2 (11:09→21:37)
[2022-01-10] MEDS: Famotidine 20 MG Tablet GT ×2 (11:09→21:39)
[2022-01-10] MEDS: DULoxetine Hcl 20 MG Capsule 40 MG PO (11:09)
[2022-01-10] MEDS: Chlorhexidine 480 ML 15 ML PO ×2 (11:10→21:36)
[2022-01-10] MEDS: Enoxaparin 40 MG/0.4 ML Syringe SC (11:10)
[2022-01-10] MEDS: Arthritis Pain Compound 60 CLICK TUBE TOPICAL ×2 (11:18→21:38)
[2022-01-10] MEDS: Haloperidol Lactate 5 MG/ML Vial 1 MG IM (14:55)
[2022-01-10] MEDS: clonazePAM 0.5 MG Tablet PO (18:46)
[2022-01-10 19:36] VITALS: BP 107/69; PULSE 65; RESP 18; TEMP 37.1; O2SAT 97
[2022-01-10] MEDS: QUEtiapine 25 MG Tablet GT (19:52)
[2022-01-10 20:18] VITALS: PULSE 65; RESP 18; O2SAT 97
[2022-01-10 21:37] VITALS: PULSE 63
[2022-01-10] MEDS: Jevity 1.5. 1,000 ML Bottle 300 ML GT (21:37)
[2022-01-11] MEDS: Ibuprofen 100 MG/5 ML UDC 400 MG PO ×3 (03:36→18:45)
[2022-01-11] MEDS: Psyllium 1 PACKET GT ×3 (05:51→21:53)
[2022-01-11] MEDS: Acetaminophen 650 MG/20 ML UDC 1000 MG GT ×3 (05:52→21:38)
[2022-01-11] MEDS: Nystatin Powder 15gm Bottle 1 APPLIC TOPICAL ×2 (05:53→21:51)
[2022-01-11] MEDS: Menthol/Lanolin/Calamine/Znox 113 GM Tube 1 APPLIC TOPICAL ×3 (05:53→21:50)
[2022-01-11] MEDS: Mupirocin Ointment 22gm Tube 1 APPLIC TOPICAL ×3 (05:54→17:40)
[2022-01-11] MEDS: oxyCODONE 5 MG Tablet PO (06:47)
[2022-01-11 08:17] VITALS: BP 118/72; PULSE 62; RESP 16; TEMP 36.6; O2SAT 96
[2022-01-11] MEDS: AMANTADINE HCL 50 MG/5ML 100 MG GT ×2 (09:51→21:50)
[2022-01-11] MEDS: Arthritis Pain Compound 60 CLICK TUBE TOPICAL ×2 (09:51→21:39)
[2022-01-11 09:52] VITALS: PULSE 68
[2022-01-11] MEDS: DULoxetine Hcl 20 MG Capsule 40 MG PO (09:52)
[2022-01-11] MEDS: Metoprolol Tartrate 50 MG Tablet GT ×2 (09:52→21:49)
[2022-01-11] MEDS: Enoxaparin 40 MG/0.4 ML Syringe SC (09:53)
[2022-01-11] MEDS: amLODIPine 10 MG Tablet GT (09:53)
[2022-01-11] MEDS: Famotidine 20 MG Tablet GT ×2 (09:53→21:39)
[2022-01-11] MEDS: QUEtiapine 25 MG Tablet 12.5 MG PO (09:54)
[2022-01-11] MEDS: Diphenoxylate/Atrop 1 Tablet GT ×2 (09:56→21:39)
[2022-01-11] MEDS: Chlorhexidine 480 ML 15 ML PO ×2 (10:22→21:51)
--- NOTE | 2022-01-11 13:49 | CASEMGMT ---
Social Work Mother present on unit and informed this worker she plans on making a surprise visit to [facility] as that would be her next choice. SW informed mother that [facility] recently had a COVID outbreak was not taking admissions, however, that can change. Still encouraged mother to make surprise visits to facilities. Mother stated she has not heard very good things about the other SNFs and hesitant to choose another option. SW acknowledged hardship and offered ongoing assistance. Mother appreciative. Will continue to follow. BIANKA Wren
[2022-01-11] MEDS: clonazePAM 0.5 MG Tablet PO (18:45)
[2022-01-11 19:47] VITALS: BP 112/74; PULSE 78; RESP 16; TEMP 36.6; O2SAT 92
[2022-01-11] MEDS: QUEtiapine 25 MG Tablet GT (19:50)
[2022-01-11 21:49] VITALS: BP 112/74; PULSE 78
[2022-01-11] MEDS: Jevity 1.5. 1,000 ML Bottle 300 ML GT (21:53)
[2022-01-12] MEDS: Mupirocin Ointment 22gm Tube 1 APPLIC TOPICAL ×5 (00:51→23:12)
--- NOTE | 2022-01-12 03:23 | NURSING ---
REVIEWED AND AGREE WITH SSIS DEVELOPER'S FUNCTIONAL ASSESSMENT AND HANDOFF CHARTING.
[2022-01-12] MEDS: Ibuprofen 100 MG/5 ML UDC 400 MG PO ×3 (03:55→19:00)
[2022-01-12] MEDS: Acetaminophen 650 MG/20 ML UDC 1000 MG GT ×3 (06:34→21:05)
[2022-01-12] MEDS: Psyllium 1 PACKET GT ×3 (06:34→21:06)
[2022-01-12] MEDS: Menthol/Lanolin/Calamine/Znox 113 GM Tube 1 APPLIC TOPICAL ×3 (06:35→21:05)
[2022-01-12] MEDS: Nystatin Powder 15gm Bottle 1 APPLIC TOPICAL ×2 (06:35→21:06)
[2022-01-12] MEDS: oxyCODONE 5 MG Tablet PO (06:35)
[2022-01-12 08:24] VITALS: BP 114/69; PULSE 62; RESP 16; TEMP 36.7; O2SAT 97
[2022-01-12] MEDS: QUEtiapine 25 MG Tablet 12.5 MG PO (09:24)
[2022-01-12 09:25] VITALS: PULSE 65
[2022-01-12] MEDS: Metoprolol Tartrate 50 MG Tablet GT ×2 (09:25→21:06)
[2022-01-12] MEDS: Famotidine 20 MG Tablet GT ×2 (09:25→21:05)
[2022-01-12] MEDS: amLODIPine 10 MG Tablet GT (09:25)
[2022-01-12] MEDS: DULoxetine Hcl 20 MG Capsule 40 MG PO (09:25)
[2022-01-12] MEDS: AMANTADINE HCL 50 MG/5ML 100 MG GT ×2 (09:26→21:10)
[2022-01-12] MEDS: Diphenoxylate/Atrop 1 Tablet GT ×2 (09:26→21:11)
[2022-01-12] MEDS: Arthritis Pain Compound 60 CLICK TUBE TOPICAL ×2 (10:38→21:10)
--- NOTE | 2022-01-12 11:27 | CASEMGMT ---
Social Work Received call from [facility] liaison following up on pt. SW spoke with mother to inquire about current interest on [facility]. Mother denied placemend and appreicative of the check in. SW contacted [facility] liaison to retract the referral. Kate Thorpe, ACUTE CARE PHYSICAL THERAPIST GRANULIZING MACHINE OPERATOR
[2022-01-12] MEDS: Enoxaparin 40 MG/0.4 ML Syringe SC (11:30)
[2022-01-12] MEDS: Chlorhexidine 480 ML 15 ML PO ×2 (11:34→21:05)
[2022-01-12] MEDS: Jevity 1.5. 1,000 ML Bottle 300 ML GT ×3 (13:25→21:11)
[2022-01-12 15:53] LABS: Mucous, Urine 0 SEEN /hpf (<or=2+); Red Blood Cells-Urine 0 SEEN /hpf (0-5); Squamous Epithelial Cells - UA 0 SEEN /hpf (5-10)
[2022-01-12 16:00] LABS: Color, Urine Yellow (Yellow); Glucose, Dipstick Normal (Normal); Ketone-Dipstick Negative (Negative); Leukocyte Esterase-Dipstick 500 /ul (Negative); Nitrite-Dipstick Negative (Negative); Occult Blood-Urine Negative /ul (Negative); Protein-Dipstick Negative (Negative); Urine Bilirubin Dipstick Negative (Negative); Urine Urobilinogen Normal (Normal)
[2022-01-12 16:06] LABS: Bacteria 1+ /hpf (None Seen); White Blood Cells 10-25 SEEN /hpf (0-5)
[2022-01-12 16:07] LABS: Urine Clarity Sl. Cloudy (Clear)
[2022-01-12] MEDS: clonazePAM 0.5 MG Tablet PO (19:00)
[2022-01-12 19:28] VITALS: BP 133/64; PULSE 79; RESP 17; TEMP 36.7; O2SAT 97
[2022-01-12] MEDS: QUEtiapine 25 MG Tablet GT (20:57)
[2022-01-12 21:06] VITALS: PULSE 79
[2022-01-13] MEDS: Ibuprofen 100 MG/5 ML UDC 400 MG PO ×3 (03:04→19:59)
[2022-01-13] MEDS: Psyllium 1 PACKET GT ×3 (05:35→22:58)
[2022-01-13] MEDS: Acetaminophen 650 MG/20 ML UDC 1000 MG GT ×3 (05:38→23:02)
[2022-01-13] MEDS: Menthol/Lanolin/Calamine/Znox 113 GM Tube 1 APPLIC TOPICAL ×3 (05:39→22:59)
[2022-01-13] MEDS: Nystatin Powder 15gm Bottle 1 APPLIC TOPICAL ×2 (05:39→22:59)
[2022-01-13] MEDS: Mupirocin Ointment 22gm Tube 1 APPLIC TOPICAL ×3 (05:40→18:14)
[2022-01-13 07:47] VITALS: BP 128/62; PULSE 72; RESP 17; TEMP 36.3; O2SAT 95
[2022-01-13] MEDS: oxyCODONE 5 MG Tablet PO (08:20)
[2022-01-13] MEDS: AMANTADINE HCL 50 MG/5ML 100 MG GT ×2 (08:27→22:58)
[2022-01-13 08:28] VITALS: PULSE 72
[2022-01-13] MEDS: amLODIPine 10 MG Tablet GT (08:28)
[2022-01-13] MEDS: Enoxaparin 40 MG/0.4 ML Syringe SC (08:28)
[2022-01-13] MEDS: DULoxetine Hcl 20 MG Capsule 40 MG PO (08:28)
[2022-01-13] MEDS: Metoprolol Tartrate 50 MG Tablet GT ×2 (08:28→22:58)
[2022-01-13] MEDS: Famotidine 20 MG Tablet GT ×2 (08:28→22:55)
[2022-01-13] MEDS: Jevity 1.5. 1,000 ML Bottle 300 ML GT ×2 (08:29→23:03)
[2022-01-13] MEDS: Arthritis Pain Compound 60 CLICK TUBE TOPICAL ×2 (08:29→22:59)
[2022-01-13] MEDS: Chlorhexidine 480 ML 15 ML PO ×2 (08:44→23:00)
[2022-01-13] MEDS: QUEtiapine 25 MG Tablet 12.5 MG PO (10:18)
[2022-01-13] MEDS: Diphenoxylate/Atrop 1 Tablet GT ×2 (10:18→22:58)
[2022-01-13] MEDS: oxyCODONE 5 MG Tablet GT (11:50)
[2022-01-13] MEDS: clonazePAM 0.5 MG Tablet PO (19:59)
[2022-01-13 20:16] VITALS: BP 102/62; PULSE 67; RESP 17; TEMP 36.4; O2SAT 99
[2022-01-13] MEDS: QUEtiapine 25 MG Tablet GT (20:19)
[2022-01-13 22:58] VITALS: BP 102/62; PULSE 67
[2022-01-14] MEDS: Mupirocin Ointment 22gm Tube 1 APPLIC TOPICAL ×4 (01:24→17:35)
[2022-01-14] MEDS: Ibuprofen 100 MG/5 ML UDC 400 MG PO ×3 (03:55→20:04)
[2022-01-14] MEDS: Menthol/Lanolin/Calamine/Znox 113 GM Tube 1 APPLIC TOPICAL ×3 (06:52→22:06)
[2022-01-14] MEDS: Nystatin Powder 15gm Bottle 1 APPLIC TOPICAL ×2 (06:52→22:06)
[2022-01-14] MEDS: Psyllium 1 PACKET GT ×3 (06:52→22:04)
[2022-01-14] MEDS: Acetaminophen 650 MG/20 ML UDC 1000 MG GT ×3 (06:53→22:05)
[2022-01-14] MEDS: oxyCODONE 5 MG Tablet PO (06:53)
[2022-01-14] MEDS: Arthritis Pain Compound 60 CLICK TUBE TOPICAL ×2 (07:43→22:05)
[2022-01-14] MEDS: AMANTADINE HCL 50 MG/5ML 100 MG GT ×2 (07:43→22:04)
[2022-01-14] MEDS: DULoxetine Hcl 20 MG Capsule 40 MG PO (07:45)
[2022-01-14 07:50] VITALS: PULSE 71
[2022-01-14] MEDS: Metoprolol Tartrate 50 MG Tablet GT ×2 (07:50→22:03)
[2022-01-14] MEDS: amLODIPine 10 MG Tablet GT (07:54)
[2022-01-14] MEDS: Famotidine 20 MG Tablet GT ×2 (07:54→22:03)
[2022-01-14] MEDS: Chlorhexidine 480 ML 15 ML PO ×2 (07:59→22:06)
[2022-01-14] MEDS: QUEtiapine 25 MG Tablet 12.5 MG PO (08:11)
[2022-01-14] MEDS: Enoxaparin 40 MG/0.4 ML Syringe SC (08:12)
[2022-01-14 09:04] VITALS: BP 126/75; PULSE 71; RESP 16; TEMP 37.1; O2SAT 97
[2022-01-14] MEDS: Diphenoxylate/Atrop 1 Tablet GT ×2 (10:06→22:10)
[2022-01-14] MEDS: oxyCODONE 5 MG Tablet GT (10:38)
[2022-01-14] MEDS: clonazePAM 0.5 MG Tablet PO (20:04)
[2022-01-14] MEDS: QUEtiapine 25 MG Tablet GT (20:04)
[2022-01-14 21:58] VITALS: BP 123/57; PULSE 79; RESP 17; TEMP 35.8; O2SAT 97
[2022-01-14 22:03] VITALS: BP 123/57; PULSE 79
[2022-01-14] MEDS: Jevity 1.5. 1,000 ML Bottle 300 ML GT (22:07)
[2022-01-15] MEDS: Mupirocin Ointment 22gm Tube 1 APPLIC TOPICAL ×4 (00:37→17:55)
--- NOTE | 2022-01-15 03:12 | NURSING ---
REVIEWED AND AGREE WITH AIR VICE MARSHAL'S FUNCTIONAL ASSESSMENT AND HANDOFF CHARTING.
[2022-01-15] MEDS: Ibuprofen 100 MG/5 ML UDC 400 MG PO ×3 (04:31→19:43)
[2022-01-15] MEDS: Psyllium 1 PACKET GT ×3 (06:50→22:18)
[2022-01-15] MEDS: Nystatin Powder 15gm Bottle 1 APPLIC TOPICAL ×2 (06:50→22:19)
[2022-01-15] MEDS: Menthol/Lanolin/Calamine/Znox 113 GM Tube 1 APPLIC TOPICAL ×3 (06:50→22:17)
[2022-01-15] MEDS: oxyCODONE 5 MG Tablet PO (06:51)
[2022-01-15] MEDS: Acetaminophen 650 MG/20 ML UDC 1000 MG GT ×3 (06:51→22:20)
[2022-01-15 07:24] VITALS: BP 106/64; PULSE 64; RESP 16; TEMP 36.4; O2SAT 100
[2022-01-15] MEDS: amLODIPine 10 MG Tablet GT (08:00)
[2022-01-15] MEDS: Enoxaparin 40 MG/0.4 ML Syringe SC (08:00)
[2022-01-15] MEDS: AMANTADINE HCL 50 MG/5ML 100 MG GT ×2 (08:00→22:16)
[2022-01-15] MEDS: QUEtiapine 25 MG Tablet 12.5 MG PO (08:01)
[2022-01-15 08:02] VITALS: PULSE 64
[2022-01-15] MEDS: Metoprolol Tartrate 50 MG Tablet GT ×2 (08:02→22:17)
[2022-01-15] MEDS: DULoxetine Hcl 20 MG Capsule 40 MG PO (08:02)
[2022-01-15] MEDS: Arthritis Pain Compound 60 CLICK TUBE TOPICAL ×2 (08:03→22:16)
[2022-01-15] MEDS: Famotidine 20 MG Tablet GT ×2 (08:03→22:19)
[2022-01-15] MEDS: Chlorhexidine 480 ML 15 ML PO ×2 (08:11→22:19)
[2022-01-15] MEDS: Diphenoxylate/Atrop 1 Tablet GT ×2 (10:07→22:17)
[2022-01-15] MEDS: oxyCODONE 5 MG Tablet GT (11:42)
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
[2022-01-15 12:52] LABS: Absolute Lymphocyte Count 2.26 X10^3/uL (0.83-4.51); Absolute Neutrophil Count 8.7 X10^3/uL (2.0-7.7); Basophil# 0.02 X10^3/uL; Basophil% 0.2 % (0-1); Eosinophil# 0.18 X10^3/uL; Eosinophils% 1.5 % (0-5); Hematocrit 31.5 % (37-47); Hemoglobin 10.5 g/dL (12.0-15.0); Lymphocyte # 2.26 X10^3/ul (0.83-4.51); Lymphocyte % 18.8 % (19-41); Mean Corp Hgb Conc 33.3 g/dL (32-36); Mean Corpuscular Hgb 28.2 pg (27.0-32.0); Mean Corpuscular Volume 84.5 fL (81-99); Mean Platelet Vol. 9.2 fl (6.2-12.0); Monocyte# 0.81 X10^3/uL; Monocyte% 6.7 % (0-10); NRBC Flagged by Analyzer 0 % (0-5); Neutrophil # 8.71 X10^3/uL (2.7-7.7); Neutrophil % 72.5 % (47-70); Platelet Count 298 K/mm3 (150-450); RBC Distribution Width CV 14.8 % (11.6-14.6); RBC Distribution Width SD 45.6 fl (35.1-43.9); Red Blood Count 3.73 M/mm3 (4.2-5.4)
--- NOTE | 2022-01-15 12:57 | CASEMGMT ---
Social Work Team meeting held. Patient present as well as patient daughter, Jaylin. This dialysis social worker communicating that next update with insurance is 01/17/2022 and there is not guarantee of continued stay approval, Jaylin voiced understanding and aware that current recommendation is correction home for patient. Jaylin states to not be interested in the [facility] as they don't have private rooms. Jaylin states that choices are now the [facility], [facility] and [facility]. This dialysis social worker communicating that social work will continue to follow and make referrals to requested correction facilities. Patient to be reteamed next week, if continued stay is approved. Patient to continue with further care and treatment on the Rehab Unit. Social Work to continue to follow. Marcin CARLTON, DONITA
[2022-01-15 13:27] LABS: Albumin, Serum 3.6 g/dL (3.2-5.0); Anion Gap 6 (5-15); BUN 18 mg/dL (7-18); BUN/Creat Ratio 29.2 RATIO (10-20); Calcium,Total 10.3 mg/dL (8.5-10.1); Chloride 97 mmol/L (98-107); Creatinine, Serum 0.62 mg/dL (0.55-1.02); EST Glomerular Filtration Rate 112 mL/min (>60); Est Glom Filt Rate - Afr Amer 135 mL/min (>60); Estimated Creatinine Clearance 101.63 ml/min; Glucose 96 mg/dL (74-106); Potassium 4.1 mmol/L (3.5-5.1); Sodium Level 132 mmol/L (136-145)
[2022-01-15] MEDS: levoFLOXacin 500 MG Tablet PO (14:26)
[2022-01-15 16:45] LABS: Urine Sodium 29 mmol/L (Not Establ.)
[2022-01-15 19:19] VITALS: BP 116/75; PULSE 68; RESP 18; TEMP 36.6; O2SAT 100
[2022-01-15] MEDS: clonazePAM 0.5 MG Tablet PO (19:43)
[2022-01-15] MEDS: QUEtiapine 25 MG Tablet GT (19:44)
[2022-01-15] MEDS: Loperamide 2 MG Capsule GT (19:44)
[2022-01-15 22:17] VITALS: PULSE 83
[2022-01-15] MEDS: Jevity 1.5. 1,000 ML Bottle 300 ML GT (22:17)
[2022-01-15] MEDS: Ondansetron ODT 4 MG Tablet GT (23:07)
[2022-01-16] MEDS: Mupirocin Ointment 22gm Tube 1 APPLIC TOPICAL ×5 (00:24→23:34)
[2022-01-16] MEDS: Ibuprofen 100 MG/5 ML UDC 400 MG PO ×3 (03:25→18:40)
--- NOTE | 2022-01-16 03:40 | NURSING ---
01/15 @ 1914- During Nursing Report, pt began yelling out loudly. Friend, Mckenna, was at bedside. Pt found to be restless, had kicked off blankets, with tensed posture in bed. Staff reduced stimulation in room by turning off radio and turning off overhead light. Pt agreed to returning the blanket but immediately kicked it off again. Staff reassured pt that we would return in a few minutes, after report is complete. This nurse had forewarned Mckenna that pt had been restless during the day and yelling out. This nurse had forewarned pt's friend to limit visit to avoid getting pt worked up before entering the room.
[2022-01-16] MEDS: levoFLOXacin 250 MG Tablet PO (06:03)
[2022-01-16] MEDS: Psyllium 1 PACKET GT ×3 (06:03→21:34)
[2022-01-16] MEDS: Acetaminophen 650 MG/20 ML UDC 1000 MG GT ×3 (06:03→21:35)
[2022-01-16] MEDS: Nystatin Powder 15gm Bottle 1 APPLIC TOPICAL ×2 (06:04→21:30)
[2022-01-16] MEDS: Menthol/Lanolin/Calamine/Znox 113 GM Tube 1 APPLIC TOPICAL ×3 (06:04→21:30)
[2022-01-16] MEDS: oxyCODONE 5 MG Tablet PO (06:56)
[2022-01-16 07:48] VITALS: BP 117/62; PULSE 72; RESP 18; TEMP 36.8; O2SAT 98
--- NOTE | 2022-01-16 08:49 | CASEMGMT ---
Addendum entered by Kate Thorpe 01/16/22 17:02: [facility] unable [facility] accept. Updated mother. Addendum entered by Kate Thorpe 01/16/22 16:14: [facility] in [facility] behavioral unit. No response yet from the other two SNFs. SW updated mother. Original Note: Social Work Referral sent via [facility] to [facility], [facility]. BIANKA Wren [employer]NAG[employer]NS[employer]
[2022-01-16 09:17] VITALS: BP 117/62; PULSE 72
[2022-01-16] MEDS: Famotidine 20 MG Tablet GT ×2 (09:17→21:31)
[2022-01-16] MEDS: Metoprolol Tartrate 50 MG Tablet GT ×2 (09:17→21:31)
[2022-01-16] MEDS: AMANTADINE HCL 50 MG/5ML 100 MG GT ×2 (09:21→21:34)
[2022-01-16] MEDS: Enoxaparin 40 MG/0.4 ML Syringe SC (09:22)
[2022-01-16] MEDS: DULoxetine Hcl 20 MG Capsule 40 MG PO (09:22)
[2022-01-16] MEDS: amLODIPine 10 MG Tablet GT (09:23)
[2022-01-16] MEDS: QUEtiapine 25 MG Tablet 12.5 MG PO ×2 (09:25→12:05)
[2022-01-16] MEDS: Arthritis Pain Compound 60 CLICK TUBE TOPICAL ×2 (09:27→21:30)
[2022-01-16] MEDS: Diphenoxylate/Atrop 1 Tablet GT ×2 (10:07→21:31)
[2022-01-16] MEDS: Chlorhexidine 480 ML 15 ML PO ×2 (10:08→21:40)
[2022-01-16] MEDS: clonazePAM 0.5 MG Tablet PO (18:40)
[2022-01-16] MEDS: QUEtiapine 25 MG Tablet GT (20:02)
[2022-01-16] MEDS: Jevity 1.5. 1,000 ML Bottle 300 ML GT (21:28)
[2022-01-16 21:31] VITALS: BP 114/71; PULSE 74; PULSE 79; RESP 18; TEMP 36.5; O2SAT 98
[2022-01-17] MEDS: Ibuprofen 100 MG/5 ML UDC 400 MG PO ×3 (03:35→18:43)
[2022-01-17] MEDS: levoFLOXacin 250 MG Tablet PO (06:21)
[2022-01-17] MEDS: oxyCODONE 5 MG Tablet PO (06:21)
[2022-01-17] MEDS: Menthol/Lanolin/Calamine/Znox 113 GM Tube 1 APPLIC TOPICAL ×3 (06:21→22:08)
[2022-01-17] MEDS: Nystatin Powder 15gm Bottle 1 APPLIC TOPICAL ×2 (06:21→22:09)
[2022-01-17] MEDS: Mupirocin Ointment 22gm Tube 1 APPLIC TOPICAL ×3 (06:22→18:37)
[2022-01-17] MEDS: Acetaminophen 650 MG/20 ML UDC 1000 MG GT ×3 (06:25→22:05)
[2022-01-17] MEDS: Psyllium 1 PACKET GT ×3 (06:26→22:06)
[2022-01-17 08:03] VITALS: BP 102/64; PULSE 69; RESP 17; TEMP 36.2; O2SAT 98
[2022-01-17] MEDS: Arthritis Pain Compound 60 CLICK TUBE TOPICAL ×2 (08:48→22:06)
[2022-01-17] MEDS: AMANTADINE HCL 50 MG/5ML 100 MG GT ×2 (09:19→22:07)
[2022-01-17] MEDS: DULoxetine Hcl 20 MG Capsule 40 MG PO (09:19)
[2022-01-17 09:20] VITALS: PULSE 72
[2022-01-17] MEDS: Famotidine 20 MG Tablet GT ×2 (09:20→22:11)
[2022-01-17] MEDS: Diphenoxylate/Atrop 1 Tablet GT ×2 (09:20→22:17)
[2022-01-17] MEDS: Enoxaparin 40 MG/0.4 ML Syringe SC (09:20)
[2022-01-17] MEDS: Chlorhexidine 480 ML 15 ML PO ×2 (09:20→22:09)
[2022-01-17] MEDS: Metoprolol Tartrate 50 MG Tablet GT ×2 (09:20→22:08)
[2022-01-17] MEDS: amLODIPine 10 MG Tablet GT (09:20)
[2022-01-17] MEDS: QUEtiapine 25 MG Tablet 12.5 MG PO (09:21)
[2022-01-17] MEDS: Haloperidol Lactate 5 MG/ML Vial 1 MG IM (09:43)
--- NOTE | 2022-01-17 09:48 | NURSING ---
Wasted 4mg of Haldol with Heydi Ashley RN
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
--- NOTE | 2022-01-17 15:15 | CASEMGMT ---
Addendum entered by Kate Thorpe 01/19/22 16:34: [facility] pt. [facility] will submit precert for skilled care once DC date is given for [facility]. SW did ensure [facility] understands pt will admit intermediate care if skilled is not approved. SW updated mother and mother is very appreciative. SW notified [facility] to cancel referral. Not outcome from insurance update at this time. Will continue to follow. Addendum entered by Kate Thorpe 01/19/22 09:16: Requested update from [facility]. Original Note: Social Work Mother contacted this worker stating she spoke with [facility] and there is a waitlist. Mother requesting referral to [facility]. Mother expressed defeat with this process. SW validated feelings, provided emotional support and empathy. Mother appreciative. SW to update with outcome of insurance update. Kate Thorpe, BIANKA ALEJANDRAW
[2022-01-17] MEDS: clonazePAM 0.5 MG Tablet PO (18:42)
[2022-01-17] MEDS: QUEtiapine 25 MG Tablet GT (19:45)
[2022-01-17 21:35] VITALS: BP 106/59; PULSE 67; RESP 16; TEMP 36.5; O2SAT 98
[2022-01-17 22:08] VITALS: BP 106/59; PULSE 67
[2022-01-17] MEDS: Smz/Tmp Ds Tablet 1 TABLET PO (22:08)
[2022-01-17] MEDS: Jevity 1.5. 1,000 ML Bottle 300 ML GT (22:09)
[2022-01-18] MEDS: Mupirocin Ointment 22gm Tube 1 APPLIC TOPICAL ×3 (01:02→22:24)
[2022-01-18] MEDS: Ibuprofen 100 MG/5 ML UDC 400 MG PO ×3 (04:25→20:29)
[2022-01-18] MEDS: Menthol/Lanolin/Calamine/Znox 113 GM Tube 1 APPLIC TOPICAL ×3 (06:29→20:49)
[2022-01-18] MEDS: Nystatin Powder 15gm Bottle 1 APPLIC TOPICAL ×2 (06:30→20:49)
[2022-01-18] MEDS: Psyllium 1 PACKET GT ×3 (06:37→20:29)
[2022-01-18] MEDS: Acetaminophen 650 MG/20 ML UDC 1000 MG GT ×3 (06:37→22:25)
[2022-01-18] MEDS: oxyCODONE 5 MG Tablet PO (06:38)
[2022-01-18 07:32] VITALS: BP 108/63; PULSE 67; RESP 16; TEMP 36.4; O2SAT 97
[2022-01-18] MEDS: Arthritis Pain Compound 60 CLICK TUBE TOPICAL ×2 (09:24→20:29)
[2022-01-18] MEDS: AMANTADINE HCL 50 MG/5ML 100 MG GT ×2 (09:24→22:26)
[2022-01-18 09:25] VITALS: PULSE 72
[2022-01-18] MEDS: Metoprolol Tartrate 50 MG Tablet GT ×2 (09:25→20:28)
[2022-01-18] MEDS: Smz/Tmp Ds Tablet 1 TABLET PO ×2 (09:25→22:24)
[2022-01-18] MEDS: Famotidine 20 MG Tablet GT ×2 (09:25→22:25)
[2022-01-18] MEDS: amLODIPine 10 MG Tablet GT (09:25)
[2022-01-18] MEDS: DULoxetine Hcl 20 MG Capsule 40 MG PO (09:25)
[2022-01-18] MEDS: Enoxaparin 40 MG/0.4 ML Syringe SC (09:25)
[2022-01-18] MEDS: Diphenoxylate/Atrop 1 Tablet GT ×2 (09:25→22:26)
[2022-01-18] MEDS: QUEtiapine 25 MG Tablet 12.5 MG PO (09:26)
[2022-01-18] MEDS: Chlorhexidine 480 ML 15 ML PO ×2 (09:26→20:55)
[2022-01-18] MEDS: ALPRAZolam 0.25 MG Tablet PO (17:51)
[2022-01-18 19:19] VITALS: BP 110/69; PULSE 77; RESP 17; TEMP 36.3; O2SAT 100
[2022-01-18 20:28] VITALS: BP 110/69; PULSE 77
[2022-01-18] MEDS: clonazePAM 0.5 MG Tablet PO (20:29)
[2022-01-18] MEDS: QUEtiapine 25 MG Tablet GT (20:29)
[2022-01-18 21:00] VITALS: O2SAT 98
[2022-01-18] MEDS: Jevity 1.5. 1,000 ML Bottle 300 ML GT (22:26)
[2022-01-19] MEDS: Ibuprofen 100 MG/5 ML UDC 400 MG PO ×3 (03:14→19:58)
[2022-01-19] MEDS: Menthol/Lanolin/Calamine/Znox 113 GM Tube 1 APPLIC TOPICAL ×3 (03:15→22:28)
[2022-01-19] MEDS: Mupirocin Ointment 22gm Tube 1 APPLIC TOPICAL ×2 (03:15→22:47)
[2022-01-19] MEDS: Nystatin Powder 15gm Bottle 1 APPLIC TOPICAL ×2 (03:15→22:28)
[2022-01-19] MEDS: Acetaminophen 650 MG/20 ML UDC 1000 MG GT ×3 (06:34→22:05)
[2022-01-19] MEDS: oxyCODONE 5 MG Tablet PO (06:34)
[2022-01-19] MEDS: Psyllium 1 PACKET GT ×3 (06:34→22:02)
[2022-01-19] MEDS: Enoxaparin 40 MG/0.4 ML Syringe SC (07:35)
[2022-01-19] MEDS: AMANTADINE HCL 50 MG/5ML 100 MG GT ×2 (07:36→22:00)
[2022-01-19] MEDS: Arthritis Pain Compound 60 CLICK TUBE TOPICAL ×2 (07:36→22:03)
[2022-01-19 07:37] VITALS: BP 112/58; PULSE 70
[2022-01-19] MEDS: Smz/Tmp Ds Tablet 1 TABLET PO ×2 (07:37→21:59)
[2022-01-19] MEDS: DULoxetine Hcl 20 MG Capsule 40 MG PO (07:37)
[2022-01-19] MEDS: Metoprolol Tartrate 50 MG Tablet GT ×2 (07:37→22:00)
[2022-01-19] MEDS: amLODIPine 10 MG Tablet GT (07:38)
[2022-01-19] MEDS: QUEtiapine 25 MG Tablet 12.5 MG PO (07:39)
[2022-01-19] MEDS: Chlorhexidine 480 ML 15 ML PO ×2 (07:42→22:15)
[2022-01-19] MEDS: clonazePAM 0.5 MG Tablet PO ×2 (07:52→19:57)
[2022-01-19 07:56] VITALS: BP 112/58; PULSE 70; RESP 18; TEMP 36.1; O2SAT 96
[2022-01-19] MEDS: Diphenoxylate/Atrop 1 Tablet GT ×2 (09:21→22:46)
[2022-01-19] MEDS: Famotidine 20 MG Tablet GT ×2 (09:21→22:01)
[2022-01-19] MEDS: QUEtiapine 25 MG Tablet GT (20:07)
[2022-01-19 22:00] VITALS: BP 112/63; BP 99/61; PULSE 73; PULSE 78; RESP 16; TEMP 36.6; O2SAT 95
[2022-01-19] MEDS: Jevity 1.5. 1,000 ML Bottle 300 ML GT (22:14)
[2022-01-20] MEDS: Ibuprofen 100 MG/5 ML UDC 400 MG PO ×3 (03:00→20:15)
[2022-01-20] MEDS: oxyCODONE 5 MG Tablet GT ×2 (03:00→13:58)
[2022-01-20] MEDS: clonazePAM 0.5 MG Tablet PO ×2 (06:19→20:16)
[2022-01-20] MEDS: oxyCODONE 5 MG Tablet PO (06:19)
[2022-01-20] MEDS: Psyllium 1 PACKET GT ×3 (06:20→20:16)
[2022-01-20] MEDS: Acetaminophen 650 MG/20 ML UDC 1000 MG GT ×3 (06:20→23:02)
[2022-01-20] MEDS: Nystatin Powder 15gm Bottle 1 APPLIC TOPICAL ×2 (06:41→20:21)
[2022-01-20] MEDS: Menthol/Lanolin/Calamine/Znox 113 GM Tube 1 APPLIC TOPICAL ×3 (06:42→20:19)
[2022-01-20] MEDS: Mupirocin Ointment 22gm Tube 1 APPLIC TOPICAL (06:42)
[2022-01-20 09:03] VITALS: BP 120/75; PULSE 70; RESP 16; TEMP 36.6; O2SAT 94
[2022-01-20] MEDS: Arthritis Pain Compound 60 CLICK TUBE TOPICAL ×2 (09:12→20:19)
[2022-01-20 09:13] VITALS: BP 120/75; PULSE 70
[2022-01-20] MEDS: Smz/Tmp Ds Tablet 1 TABLET PO ×2 (09:13→20:17)
[2022-01-20] MEDS: QUEtiapine 25 MG Tablet 12.5 MG PO (09:13)
[2022-01-20] MEDS: Famotidine 20 MG Tablet GT ×2 (09:13→20:17)
[2022-01-20] MEDS: Diphenoxylate/Atrop 1 Tablet GT ×2 (09:13→20:16)
[2022-01-20] MEDS: Metoprolol Tartrate 50 MG Tablet GT ×2 (09:13→20:17)
[2022-01-20] MEDS: DULoxetine Hcl 20 MG Capsule 40 MG PO (09:13)
[2022-01-20] MEDS: amLODIPine 10 MG Tablet GT (09:13)
[2022-01-20] MEDS: Enoxaparin 40 MG/0.4 ML Syringe SC (09:13)
[2022-01-20] MEDS: Chlorhexidine 480 ML 15 ML PO ×2 (09:14→20:18)
[2022-01-20] MEDS: AMANTADINE HCL 50 MG/5ML 100 MG GT ×2 (09:14→20:16)
[2022-01-20 19:35] VITALS: BP 126/84; PULSE 65; RESP 18; TEMP 36.7; O2SAT 95
[2022-01-20] MEDS: Jevity 1.5. 1,000 ML Bottle 300 ML GT (20:15)
[2022-01-20 20:17] VITALS: BP 121/73; PULSE 66
[2022-01-20] MEDS: QUEtiapine 25 MG Tablet GT (20:17)
[2022-01-20 22:00] VITALS: O2SAT 95
[2022-01-21] MEDS: Ibuprofen 100 MG/5 ML UDC 400 MG PO ×2 (03:31→12:00)
[2022-01-21] MEDS: QUEtiapine 25 MG Tablet GT ×2 (05:43→20:15)
[2022-01-21] MEDS: oxyCODONE 5 MG Tablet PO (05:43)
[2022-01-21] MEDS: Menthol/Lanolin/Calamine/Znox 113 GM Tube 1 APPLIC TOPICAL ×3 (05:44→21:02)
[2022-01-21] MEDS: clonazePAM 0.5 MG Tablet PO ×2 (05:44→18:07)
[2022-01-21] MEDS: Acetaminophen 650 MG/20 ML UDC 1000 MG GT ×2 (05:45→13:48)
[2022-01-21] MEDS: Nystatin Powder 15gm Bottle 1 APPLIC TOPICAL ×2 (05:46→21:02)
[2022-01-21] MEDS: Psyllium 1 PACKET GT ×3 (05:47→21:01)
[2022-01-21 07:55] VITALS: BP 120/75; PULSE 68; RESP 18; TEMP 37.1; O2SAT 99
[2022-01-21] MEDS: Arthritis Pain Compound 60 CLICK TUBE TOPICAL ×2 (09:46→21:02)
[2022-01-21] MEDS: AMANTADINE HCL 50 MG/5ML 100 MG GT (09:46)
[2022-01-21] MEDS: DULoxetine Hcl 20 MG Capsule 40 MG PO (09:47)
[2022-01-21] MEDS: Smz/Tmp Ds Tablet 1 TABLET PO ×2 (09:47→21:01)
[2022-01-21] MEDS: Famotidine 20 MG Tablet GT ×2 (09:48→21:01)
[2022-01-21] MEDS: Enoxaparin 40 MG/0.4 ML Syringe SC (09:48)
[2022-01-21] MEDS: amLODIPine 10 MG Tablet GT (09:48)
[2022-01-21 09:53] VITALS: BP 129/86; PULSE 70
[2022-01-21] MEDS: Metoprolol Tartrate 50 MG Tablet GT ×2 (09:53→21:01)
[2022-01-21] MEDS: Chlorhexidine 480 ML 15 ML PO ×2 (09:55→21:03)
[2022-01-21] MEDS: Diphenoxylate/Atrop 1 Tablet GT ×2 (10:01→21:00)
[2022-01-21] MEDS: oxyCODONE 5 MG Tablet GT (12:50)
[2022-01-21] MEDS: Ibuprofen 400 MG Tablet PO (20:15)
[2022-01-21 21:01] VITALS: BP 105/67; PULSE 63
[2022-01-21] MEDS: Acetaminophen 500 MG Tablet 1000 MG PO (21:01)
[2022-01-21] MEDS: Amantadine 100 MG Capsule PO (21:03)
[2022-01-21] MEDS: Jevity 1.5. 1,000 ML Bottle 300 ML GT (21:04)
[2022-01-21 22:00] VITALS: BP 105/67; PULSE 68; RESP 18; TEMP 37.1; O2SAT 99
[2022-01-22] MEDS: oxyCODONE 5 MG Tablet PO ×2 (05:39→17:47)
[2022-01-22] MEDS: Psyllium 1 PACKET GT ×3 (05:40→22:36)
[2022-01-22] MEDS: clonazePAM 0.5 MG Tablet PO (05:40)
[2022-01-22] MEDS: QUEtiapine 25 MG Tablet GT ×2 (05:40→05:46)
[2022-01-22] MEDS: Acetaminophen 500 MG Tablet 1000 MG PO ×3 (05:40→22:37)
[2022-01-22] MEDS: Menthol/Lanolin/Calamine/Znox 113 GM Tube 1 APPLIC TOPICAL ×3 (05:44→22:38)
[2022-01-22] MEDS: Nystatin Powder 15gm Bottle 1 APPLIC TOPICAL ×2 (05:45→22:39)
[2022-01-22 09:29] VITALS: BP 103/57; PULSE 68; RESP 17; TEMP 37.2; O2SAT 99
[2022-01-22] MEDS: Arthritis Pain Compound 60 CLICK TUBE TOPICAL ×2 (10:32→22:38)
[2022-01-22] MEDS: DULoxetine Hcl 20 MG Capsule 40 MG PO (10:32)
[2022-01-22 10:33] VITALS: PULSE 68
[2022-01-22] MEDS: Metoprolol Tartrate 50 MG Tablet GT ×2 (10:33→22:37)
[2022-01-22] MEDS: Enoxaparin 40 MG/0.4 ML Syringe SC (10:33)
[2022-01-22] MEDS: Diphenoxylate/Atrop 1 Tablet GT ×2 (10:33→22:36)
[2022-01-22] MEDS: Chlorhexidine 480 ML 15 ML PO ×2 (10:34→22:38)
[2022-01-22] MEDS: Amantadine 100 MG Capsule PO ×2 (10:34→22:37)
[2022-01-22] MEDS: Famotidine 20 MG Tablet GT ×2 (10:34→22:36)
[2022-01-22] MEDS: amLODIPine 10 MG Tablet GT (10:34)
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
[2022-01-22] MEDS: Ibuprofen 400 MG Tablet PO ×2 (12:18→22:37)
[2022-01-22] MEDS: oxyCODONE 5 MG Tablet GT (12:42)
--- NOTE | 2022-01-22 12:46 | CASEMGMT ---
Addendum entered by Kate Thorpe 01/23/22 13:33: Spoke with [facility] - provided updated clinicals and precert was submitted at 1100. SW spoke with mother to update on process. Unsure of DC date as it depends on precerts. Advised [facility] with transfer pt - SW scheduled Will Call transport. Will keep mother updated. Mother appreciative and expressed understanding. Addendum entered by Kate Thorpe 01/23/22 09:32: This worker had not received responses to the two inquires on starting precert from [facility] yesterday. JAYDON sent an email to LNHA at [facility] inquiring about status to appropriately plan for DC. Will await response. IDT updated. Original Note: Social Work IDT met with patient and mother for Team meeting. Discussed patient's progress in PT/OT/ST/SN. [facility] and continued stay is not guaranteed with each review. [facility] has accepted pt and mother accepting of that option. IDT explained pt noting to be more agitated with therapy sessions and being more comfortable being in the bed. Recommended setting DC date for 01/24 to transition to [facility] and have less aggressive therapy. Mother became emotional and Dr to speak with mother separately. Mother expressed concern with pt not getting enough attention at a SNF. JAYDON offered in addition to therapy and nursing staff, [facility] has an activity department that works 7 days weeks and can provide 1:1 and group interaction with pt. Mother appreciative. SW to notify [facility] of upcoming discharge and prepare transport, [id number]. [facility] will need to submit precert. SW advised precert to be started. Plan: DC to [facility], pending precert BIANKA Wren
[2022-01-22 15:22] LABS: Bacteria 0 SEEN /hpf (None Seen); Mucous, Urine 0 SEEN /hpf (<or=2+); Red Blood Cells-Urine 0 SEEN /hpf (0-5); Squamous Epithelial Cells - UA 0 SEEN /hpf (5-10); White Blood Cells 0 SEEN /hpf (0-5)
[2022-01-22 15:41] LABS: Color, Urine Yellow (Yellow); Glucose, Dipstick Normal (Normal); Ketone-Dipstick Negative (Negative); Leukocyte Esterase-Dipstick Negative /ul (Negative); Nitrite-Dipstick Negative (Negative); Occult Blood-Urine Negative /ul (Negative); Protein-Dipstick Negative (Negative); Urine Bilirubin Dipstick Negative (Negative); Urine Clarity Clear (Clear); Urine Urobilinogen Normal (Normal)
[2022-01-22 19:06] VITALS: BP 103/63; PULSE 61; RESP 18; TEMP 37.2; O2SAT 94
[2022-01-22] MEDS: clonazePAM 1 MG Tablet PO (20:20)
[2022-01-22 22:37] VITALS: BP 103/63; PULSE 61
[2022-01-22] MEDS: Jevity 1.5. 1,000 ML Bottle 300 ML GT (22:38)
[2022-01-23 05:41] LABS: Hemoglobin 10.7 g/dL (12.0-15.0); Mean Corp Hgb Conc 32.4 g/dL (32-36); Mean Corpuscular Hgb 28.3 pg (27.0-32.0); Mean Corpuscular Volume 87.3 fL (81-99); Mean Platelet Vol. 8.1 fl (6.2-12.0); Platelet Count 313 K/mm3 (150-450); RBC Distribution Width CV 15.5 % (11.6-14.6); RBC Distribution Width SD 49.6 fl (35.1-43.9); Red Blood Count 3.78 M/mm3 (4.2-5.4); White Blood Count 5.9 K/mm3 (4.4-11.0)
[2022-01-23 06:05] LABS: Anion Gap 7 (5-15); BUN 28 mg/dL (7-18); BUN/Creat Ratio 28.5 RATIO (10-20); Calcium,Total 10.7 mg/dL (8.5-10.1); Chloride 101 mmol/L (98-107); Creatinine, Serum 0.98 mg/dL (0.55-1.02); EST Glomerular Filtration Rate 65 mL/min (>60); Est Glom Filt Rate - Afr Amer 79 mL/min (>60); Estimated Creatinine Clearance 68.46 ml/min; Glucose 81 mg/dL (74-106); Potassium 4.5 mmol/L (3.5-5.1); Sodium Level 132 mmol/L (136-145)
[2022-01-23] MEDS: Acetaminophen 500 MG Tablet 1000 MG PO ×3 (06:43→20:20)
[2022-01-23] MEDS: QUEtiapine 25 MG Tablet GT (06:43)
[2022-01-23] MEDS: Menthol/Lanolin/Calamine/Znox 113 GM Tube 1 APPLIC TOPICAL ×3 (06:44→20:45)
[2022-01-23] MEDS: Nystatin Powder 15gm Bottle 1 APPLIC TOPICAL ×2 (06:44→21:06)
[2022-01-23] MEDS: clonazePAM 1 MG Tablet PO ×2 (06:51→20:23)
[2022-01-23 08:07] VITALS: BP 121/85; PULSE 79; RESP 16; TEMP 36.3; O2SAT 97
[2022-01-23] MEDS: oxyCODONE 5 MG Tablet PO ×3 (08:49→17:30)
[2022-01-23 08:56] VITALS: PULSE 76
[2022-01-23] MEDS: Metoprolol Tartrate 50 MG Tablet GT ×2 (08:56→20:21)
[2022-01-23] MEDS: Arthritis Pain Compound 60 CLICK TUBE TOPICAL ×2 (08:56→20:48)
[2022-01-23] MEDS: DULoxetine Hcl 30 MG Capsule PO (08:56)
[2022-01-23] MEDS: Psyllium 1 PACKET GT ×2 (08:57→20:27)
[2022-01-23] MEDS: Famotidine 20 MG Tablet GT ×2 (08:57→20:20)
[2022-01-23] MEDS: Enoxaparin 40 MG/0.4 ML Syringe SC (08:57)
[2022-01-23] MEDS: Amantadine 100 MG Capsule PO ×2 (08:57→20:20)
[2022-01-23] MEDS: amLODIPine 10 MG Tablet GT (08:57)
[2022-01-23] MEDS: Diphenoxylate/Atrop 1 Tablet GT ×2 (09:21→20:20)
[2022-01-23] MEDS: Jevity 1.5. 1,000 ML Bottle 300 ML GT ×2 (09:21→20:45)
[2022-01-23] MEDS: Chlorhexidine 480 ML 15 ML PO (09:21)
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
[2022-01-23] MEDS: FLU VACC QS2022-23(6MOS UP)/PF 60 MCG/0.5 ML SYRINGE IM (12:36)
[2022-01-23] MEDS: Ibuprofen 400 MG Tablet PO ×2 (12:43→20:21)
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
[2022-01-23 15:12] LABS: Albumin, Serum 3.7 g/dL (3.2-5.0)
[2022-01-23] MEDS: 0.9% Normal Saline 1,000 ML 500 ML IV (19:08)
[2022-01-23 20:00] VITALS: BP 105/70; PULSE 61; RESP 18; TEMP 36.2; O2SAT 100
[2022-01-23 20:21] VITALS: BP 105/70; PULSE 61
[2022-01-23] MEDS: 0.9% Normal Saline 1,000 ML 125 ML IV (22:03)
[2022-01-24] MEDS: Ibuprofen 400 MG Tablet PO ×3 (03:00→20:01)
[2022-01-24] MEDS: Menthol/Lanolin/Calamine/Znox 113 GM Tube 1 APPLIC TOPICAL ×3 (04:39→22:22)
[2022-01-24] MEDS: Nystatin Powder 15gm Bottle 1 APPLIC TOPICAL ×2 (04:39→22:23)
[2022-01-24] MEDS: 0.9% Normal Saline 1,000 ML 125 ML IV (06:06)
[2022-01-24 06:30] LABS: Anion Gap 5 (5-15); BUN 23 mg/dL (7-18); BUN/Creat Ratio 25.5 RATIO (10-20); Calcium,Total 10.4 mg/dL (8.5-10.1); Chloride 106 mmol/L (98-107); EST Glomerular Filtration Rate 72 mL/min (>60); Est Glom Filt Rate - Afr Amer 87 mL/min (>60); Estimated Creatinine Clearance 74.67 ml/min; Ferritin 721 ng/mL (8-252); Glucose 82 mg/dL (74-106); Iron 100 ug/dL (50-170); Iron Binding Capacity,Total 267 ug/dL (250-450); PERCENT IRON SATURATION 37.5 % (15.0-55.0); Potassium 4.9 mmol/L (3.5-5.1); Sodium Level 136 mmol/L (136-145)
[2022-01-24] MEDS: clonazePAM 0.5 MG Tablet PO (06:39)
[2022-01-24] MEDS: QUEtiapine 25 MG Tablet GT ×2 (06:39→20:02)
[2022-01-24] MEDS: Acetaminophen 500 MG Tablet 1000 MG PO ×3 (06:39→22:24)
[2022-01-24 09:06] VITALS: PULSE 80
[2022-01-24] MEDS: DULoxetine Hcl 30 MG Capsule PO (09:06)
[2022-01-24] MEDS: Metoprolol Tartrate 50 MG Tablet GT ×2 (09:06→22:23)
[2022-01-24] MEDS: oxyCODONE 5 MG Tablet PO ×3 (09:07→17:49)
[2022-01-24] MEDS: Enoxaparin 40 MG/0.4 ML Syringe SC (09:07)
[2022-01-24 09:08] VITALS: BP 101/64; PULSE 66; RESP 18; TEMP 36.2; O2SAT 100
[2022-01-24] MEDS: Amantadine 100 MG Capsule PO ×2 (09:08→22:24)
[2022-01-24] MEDS: amLODIPine 10 MG Tablet GT (09:08)
[2022-01-24] MEDS: Famotidine 20 MG Tablet GT ×2 (09:08→22:23)
[2022-01-24] MEDS: Psyllium 1 PACKET GT ×2 (09:08→22:23)
[2022-01-24] MEDS: Diphenoxylate/Atrop 1 Tablet GT (09:11)
[2022-01-24] MEDS: Chlorhexidine 480 ML 15 ML PO ×2 (09:12→22:44)
[2022-01-24] MEDS: Jevity 1.5. 1,000 ML Bottle 300 ML GT ×2 (09:33→22:22)
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
--- NOTE | 2022-01-24 13:58 | CASEMGMT ---
Addendum entered and electronically signed by Meena Monroy 01/24/22 16:13: 1610 - Spoke with Annamaria at [facility] [facility] and still no response by [facility] on precert. Updated patient's mother. Anticipating a response by tomorrow, 01.25.2022. Social work to follow for final discharge planning once insurance precert is obtained. -Meena Monroy, NELSON, D[employer] HOUSE WHEEL OPERATOR Original Note: Social Work - Rehab Unit Communication with Annamaria at [facility] via [employer] today. Annamaria reports has reached out to [facility] about precert update and has indicated this as urgent status. Updated patient is ready to discharge to once precert if obtained. Updated patient's mother. Plan: [facility] pending insurance authorization. Social work following. -Meena Monroy
[2022-01-24 19:27] VITALS: BP 119/68; PULSE 80; RESP 18; TEMP 36.9; O2SAT 95
[2022-01-24] MEDS: clonazePAM 1 MG Tablet PO (20:00)
[2022-01-24 22:23] VITALS: BP 119/68; PULSE 80
--- NOTE | 2022-01-25 03:46 | NURSING ---
REVIEWED AND AGREE WITH [employer] PRESSER'S FUNCTIONAL ASSESSMENT AND HANDOFF CHARTING.
[2022-01-25] MEDS: clonazePAM 0.5 MG Tablet PO (06:38)
[2022-01-25] MEDS: Acetaminophen 500 MG Tablet 1000 MG PO (06:38)
[2022-01-25] MEDS: QUEtiapine 25 MG Tablet GT (06:38)
[2022-01-25] MEDS: Menthol/Lanolin/Calamine/Znox 113 GM Tube 1 APPLIC TOPICAL (07:02)
[2022-01-25] MEDS: Nystatin Powder 15gm Bottle 1 APPLIC TOPICAL (07:02)
[2022-01-25 07:29] VITALS: BP 116/66; PULSE 72; RESP 17; TEMP 36.6; O2SAT 100
[2022-01-25 08:30] VITALS: PULSE 72
[2022-01-25] MEDS: Metoprolol Tartrate 50 MG Tablet GT (08:30)
[2022-01-25] MEDS: Amantadine 100 MG Capsule PO (08:30)
[2022-01-25] MEDS: Enoxaparin 40 MG/0.4 ML Syringe SC (08:30)
[2022-01-25] MEDS: amLODIPine 10 MG Tablet GT (08:31)
[2022-01-25] MEDS: DULoxetine Hcl 30 MG Capsule PO (08:31)
[2022-01-25] MEDS: oxyCODONE 5 MG Tablet PO (08:32)
[2022-01-25] MEDS: Psyllium 1 PACKET GT (08:33)
[2022-01-25] MEDS: Chlorhexidine 480 ML 15 ML PO (08:34)
[2022-01-25] MEDS: Famotidine 20 MG Tablet GT (08:35)
--- NOTE | 2022-01-25 08:45 | CASEMGMT ---
Addendum entered by Kate Thorpe 01/25/22 09:56: 7000 completed and DC paperwork sent to [facility] via [employer] Original Note: Social Work Notified by [facility] that auth was approved and pt is able to DC today. Notified IDT and mother. Scheduled transport for 1100 Plan: DC 01/25 to [place], BIANKA ChangW
[2022-01-25] MEDS: Jevity 1.5. 1,000 ML Bottle 300 ML GT (08:48)
[2022-01-25] MEDS: 0.9% Saline Lock 10 ML Syringe IV (08:50)
--- NOTE | 2022-01-25 10:00 | NURSING ---
Report called to [facility], spoke with nurse Paez
== END 2022-01-25 11:15 | disposition intermediate care facility (04) | DRG 862 ==
PROVIDERS: Admitting Provider Family Medicine Geriatric Medicine; Visit Provider Internal Medicine
DX: S22.5XXD Flail chest, subsequent encounter for fracture with routine healing (principal); E46 Unspecified protein-calorie malnutrition; J18.9 Pneumonia, unspecified organism; D62 Acute posthemorrhagic anemia; E87.1 Hypo-osmolality and hyponatremia; Z93.1 Gastrostomy status; F41.9 Anxiety disorder, unspecified; S01.111A Laceration without foreign body of right eyelid and periocular area, initial encounter; F10.10 Alcohol abuse, uncomplicated; E83.52 Hypercalcemia; W06.XXXA Fall from bed, initial encounter; S82.201D Unspecified fracture of shaft of right tibia, subsequent encounter for closed fracture with routine healing; S42.001D Fracture of unspecified part of right clavicle, subsequent encounter for fracture with routine healing; F32.A Depression, unspecified; F43.10 Post-traumatic stress disorder, unspecified; B96.89 Other specified bacterial agents as the cause of diseases classified elsewhere; N76.0 Acute vaginitis; R13.10 Dysphagia, unspecified; B35.4 Tinea corporis; N39.0 Urinary tract infection, site not specified; Z23 Encounter for immunization; V03.90XD Pedestrian on foot injured in collision with car, pick-up truck or van, unspecified whether traffic or nontraffic accident, subsequent encounter; S22.41XD Multiple fractures of ribs, right side, subsequent encounter for fracture with routine healing; S32.10XD Unspecified fracture of sacrum, subsequent encounter for fracture with routine healing; S32.058D Other fracture of fifth lumbar vertebra, subsequent encounter for fracture with routine healing; S32.511D Fracture of superior rim of right pubis, subsequent encounter for fracture with routine healing; S32.591D Other specified fracture of right pubis, subsequent encounter for fracture with routine healing; S42.301D Unspecified fracture of shaft of humerus, right arm, subsequent encounter for fracture with routine healing; S00.83XD Contusion of other part of head, subsequent encounter; S06.5XAD Traumatic subdural hemorrhage with loss of consciousness status unknown, subsequent encounter; S30.1XXD Contusion of abdominal wall, subsequent encounter; S41.111D Laceration without foreign body of right upper arm, subsequent encounter; S36.113D Laceration of liver, unspecified degree, subsequent encounter; S81.811D Laceration without foreign body, right lower leg, subsequent encounter; Z87.820 Personal history of traumatic brain injury; Y92.129 Unspecified place in nursing home as the place of occurrence of the external cause; Z68.20 Body mass index [BMI] 20.0-20.9, adult
CPT/HCPCS: 0134A; 36415; 70450; 74230; 80048; 80053; 81001; 82040; 82306; 82533; 82570; 82652; 82728; 82784; 83540; 83550; 83630; 83735; 83970; 84100; 84165; 84300; 85014; 85018; 85025; 85027; 86334; 87077; 87086; 87088; 87186; 87426; 87493; 91313; 92507; 92523; 92526; 92610; 92611; 97110; 97112; 97116; 97124; 97129; 97140; 97150; 97162; 97166; 97530; 97535; 97542; 97802; 97803; 99406; G0008; J7030; 90686; A4216

== ENCOUNTER 2022-04-01 08:56 | Inpatient (IN) | payer MEDICAID, SELFPAY ==
[2022-04-01] VITALS (18 sets, daily range): BP systolic 89–106; BP diastolic 46–78; PULSE 71–119; RESP 16–33; TEMP 36.1–38.9; O2SAT 90–98; BMI 21.1; BMI 21.4
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
[2022-04-01 10:08] LABS: ALB/GLOB Ratio 0.6 RATIO (0.9-2.4); AST(SGOT) 18 U/L (15-37); Alanine Aminotransfer ALT/SGPT 33 U/L (13-56); Albumin, Serum 2.8 g/dL (3.2-5.0); Alkaline Phosphatase 127 U/L (45-117); Anion Gap 7 (5-15); BUN 33 mg/dL (7-18); BUN/Creat Ratio 24.4 RATIO (10-20); Calcium,Total 9.2 mg/dL (8.5-10.1); Chloride 107 mmol/L (98-107); Creatinine, Serum 1.35 mg/dL (0.55-1.02); EST Glomerular Filtration Rate 45 mL/min (>60); Est Glom Filt Rate - Afr Amer 55 mL/min (>60); Estimated Creatinine Clearance 49.78 ml/min; Globulin 4.6 g/dL (2.2-4.2); Glucose 107 mg/dL (74-106); Protein, Total 7.4 g/dL (6.4-8.2); Sodium Level 137 mmol/L (136-145); Troponin-I HS < 3 pg/mL (3.0-54.0)
[2022-04-01] MEDS: 0.9% Normal Saline 1,000 ML 999 ML IV ×2 (10:11→11:35)
--- NOTE | 2022-04-01 10:15 | RAD_ITS ---
STUDY: X-RAY CHEST REASON FOR EXAM: Female, 46 years old. fever TECHNIQUE: Single AP portable view of the chest. COMPARISON: September 16, 2021 FINDINGS: Mild to moderate patchy pneumonic consolidation is present in the right lower lobe. Additional patchy infiltrates are also present in the right upper lobe. There is chronic interstitial scarring and pleural thickening throughout the right lung associated with multiple old right-sided rib fractures. The left lung is clear. Displaced fracture deformity of the proximal one third humeral shaft noted. No pleural effusion is seen. Normal size heart. Normal mediastinum and mt. Normal visualized pulmonary arteries. Normal visualized aortic arch and descending thoracic aorta. Normal visualized thoracic spine. There is no demonstrated abnormality of the visualized soft tissue structures of the upper abdomen. RAD/Chest 1 View (Portable) IMPRESSION: 1. Mild to moderate patchy pneumonic consolidation is present in the right lower lobe. Additional patchy infiltrates are also present in the right upper lobe. There is chronic interstitial scarring and pleural thickening throughout the right lung associated with multiple old right-sided rib fractures. Electronically Signed: Clarence Lee MD at 10:52 EST ,
[2022-04-01 10:20] LABS: Bacteria 0 SEEN /hpf (None Seen); Mucous, Urine 0 SEEN /hpf (<or=2+); Red Blood Cells-Urine 0 SEEN /hpf (0-5); Squamous Epithelial Cells - UA 0 SEEN /hpf (5-10)
[2022-04-01] MEDS: Acetaminophen 650 MG/20 ML UDC JT (10:22)
[2022-04-01 10:24] LABS: Color, Urine Yellow (Yellow); Glucose, Dipstick Normal (Normal); Ketone-Dipstick Negative (Negative); Leukocyte Esterase-Dipstick 500 /ul (Negative); Nitrite-Dipstick Positive (Negative); Occult Blood-Urine 250 /ul (Negative); Protein-Dipstick 100 mg/dl (Negative); Specific Gravity, Urine 1.015 (1.002-1.030); Urine Bilirubin Dipstick Negative (Negative); Urine Clarity Turbid (Clear); Urine Urobilinogen 1 mg/dl (Normal)
[2022-04-01 10:33] LABS: Absolute Lymphocyte Count 0.71 X10^3/uL (0.83-4.51); Basophil# 0.08 X10^3/uL; Basophil% 0.5 % (0-1); Eosinophil# 0.03 X10^3/uL; Eosinophils% 0.2 % (0-5); Hematocrit 29.4 % (37-47); Hemoglobin 9.8 g/dL (12.0-15.0); Lymphocyte # 0.71 X10^3/ul (0.83-4.51); Lymphocyte % 4.1 % (19-41); Mean Corp Hgb Conc 33.3 g/dL (32-36); Mean Corpuscular Hgb 29.3 pg (27.0-32.0); Mean Platelet Vol. 9.7 fl (6.2-12.0); Monocyte# 1.24 X10^3/uL; Monocyte% 7.2 % (0-10); NRBC Flagged by Analyzer 0 % (0-5); Neutrophil # 15.03 X10^3/uL (2.7-7.7); Neutrophil % 86.9 % (47-70); POSITIVE MORPHOLOGY YES; Platelet Count 271 K/mm3 (150-450); RBC Distribution Width CV 13.7 % (11.6-14.6); RBC Distribution Width SD 44.5 fl (35.1-43.9); Red Blood Count 3.34 M/mm3 (4.2-5.4); White Blood Count 17.3 K/mm3 (4.4-11.0)
[2022-04-01 10:35] LABS: White Blood Cells >100 SEEN /hpf (0-5)
[2022-04-01 10:36] LABS: International Normalized Ratio 1.1; Prothrombin Time (Protime)PT. 13.8 SECONDS (11.7-14.9)
[2022-04-01 10:37] LABS: Differential Indicated SCAN CRITERIA MET; Partial Thromboplast Time 33.1 Seconds (24.1-36.2)
--- NOTE | 2022-04-01 10:45 | EKG12_ITS ---
Test Reason : Blood Pressure : / mmHG Vent. Rate : 117 BPM Atrial Rate : 117 BPM P-R Int : 134 ms QRS Dur : 086 ms QT Int : 306 ms P-R-T Axes : 037 031 050 degrees QTc Int : 426 ms Sinus tachycardia Otherwise normal ECG Confirmed by ILA ARAUJO, NATHALIE ([id number]), deputy editor in chief LINDSEY FINNEY ([id number]) on 04/02/2022 10:53:30 AM Referred By: Confirmed By:NATHALEI THORPE MD
[2022-04-01 10:51] LABS: Lactic Acid 2.2 mmol/L (0.4-1.9)
[2022-04-01 10:56] LABS: D-Dimer Quantitative (DVT/PE) 3.72 FEU/ug/m (0.27-0.49)
--- NOTE | 2022-04-01 10:59 | CT_ITS ---
STUDY: CTA CHEST REASON FOR EXAM: Female, 46 years old. hypoxia FEVER AT [place], COVID +, PTSD D/T TRAUMA, ALCOHOL ABUSE RADIATION DOSAGE (If Supplied By Facility): CTDIvol = ( 6.34 ) mGy, DLP = ( 185.78 ) mGycm TECHNIQUE: The examination was performed with the intravenous administration of IV 100mL [id number]-[id number]. Post-processing of the angiographic images was performed, with multiplanar reformation and 3D reconstruction. Individualized dose optimization techniques were used for this CT. COMPARISON: None. FINDINGS: Mild to moderate patchy consolidation is present in the right lower lobe and associated with subsegmental atelectasis and some dense soft tissue, consistent with aspirated contents. Mild patchy pneumonic infiltrates are scattered throughout the right upper and middle lobes as well. A small partially calcified granuloma is also present in the lateral aspect of the right middle lobe. Subsegmental atelectasis and a small patchy infiltrate is also present in the medial aspect of the left lower lobe. Some additional scattered interstitial opacities are present in the left upper and lower lobes likely representing developing disease. Trace bilateral pleural effusions are present. Normal enhancement of the main pulmonary artery and right and left pulmonary arteries. Normal enhancement of the bilateral peripheral pulmonary arteries. There is no demonstrated pulmonary embolism. Normal thoracic aorta and visualized great vessels. There is no demonstrated aortic dissection. Normal heart and pericardium. There are no demonstrated calcifications of the coronary arteries. Mild hilar and subcarinal lymphadenopathy is present. This is likely reactive. Normal visualized trachea and bronchi. The lungs are well expanded. Normal chest wall structures. There are degenerative changes of thoracic spine. Normal visualized upper abdomen. CT/CTA Chest W/WO Contrast IMPRESSION: 1. Mild to moderate patchy consolidation is present in the right lower lobe and associated with subsegmental atelectasis and some dense soft tissue, consistent with aspirated contents. 2. Mild patchy pneumonic infiltrates of the right upper and middle lobes 3. Subsegmental atelectasis and a small patchy infiltrate is also present in the medial aspect of the left lower lobe. 4. Trace bilateral pleural effusions are present. 5. No demonstrated pulmonary embolism or arterial dissection. Electronically Signed: Clarence Lee MD at 12:52 EST ,
--- NOTE | 2022-04-01 12:06 | ED.RN ---
hospitalist paged per dr sanz request. dr jordan called and stated he would not talk to umu under ct is back.
[2022-04-01] MEDS: Vancomycin IV 1,000 MG/200 ML BAG 200 MG IV (12:50)
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
[2022-04-01 14:20] LABS: Reflex Lactate? Y
[2022-04-01] MEDS: 0.9% Normal Saline 1,000 ML 150 ML IV (14:39)
--- NOTE | 2022-04-01 14:39 | PCM.RX.CS ---
Consult Pharmacy has been consulted to manage selected antiobiotic: Vancomycin Type of Consult: New start Suspected Infection: Sepsis, Pneumonia Labs: Sodium 137 mmol/L (136-145) 04/01/22 09:30 Potassium 4.0 mmol/L (3.5-5.1) 04/01/22 09:30 Chloride 107 mmol/L (98-107) 04/01/22 09:30 Carbon Dioxide 23.0 mmol/L (21.0-32.0) 04/01/22 09:30 Anion Gap 7 (5-15) 04/01/22 09:30 BUN 33 mg/dL (7-18) H 04/01/22 09:30 Creatinine 1.35 mg/dL (0.55-1.02) H 04/01/22 09:30 Est GFR (MDRD) Af Amer 55 mL/min (>60) L 04/01/22 09:30 Est GFR (MDRD) Non-Af 45 mL/min (>60) L 04/01/22 09:30 BUN/Creatinine Ratio 24.4 RATIO (10-20) H 04/01/22 09:30 Glucose 107 mg/dL (74-106) H 04/01/22 09:30 Goal Trough: 15-20 mcg/mL Pharmacy Plan for Drug Dosing: NEW START IV VANCOMYCIN Consulting Physician: STEPAN Indication: PNEUMONIA/SEPSIS Goal Trough: 15-20 MG/DL SrCr: 1.35 MG/DL (04/01) CrCl: 49.8 ML/MIN Comments: 1000MG STANDARD INITIAL DOSE GIVEN IN ER @1250 Vancomycin Dose: WILL START 500MG Q12 04/02 @ 0100 AND GET A TROUGH PRIOR TO 4TH TOTAL DOSE PER POLICY. Pending Level: 04/03/22 @ 0030 Pharmacy Service will continue to monitor and adjust dosing as required.
[2022-04-01] MEDS: dexAMETHasone 10 MG/ML Vial 6 MG IV (15:39)
[2022-04-01 17:52] LABS: Lactic Acid 1.2 mmol/L (0.4-1.9)
[2022-04-01] MEDS: Famotidine 20 MG Tablet GT (21:00)
[2022-04-01] MEDS: AMANTADINE HCL 50 MG/5ML 100 MG GT (21:00)
[2022-04-01] MEDS: Nystatin Powder 15gm Bottle 1 APPLIC TOPICAL (21:02)
[2022-04-02] VITALS (22 sets, daily range): BP systolic 104–137; BP diastolic 65–88; PULSE 68–84; RESP 11–21; TEMP 35.9–36.9; O2SAT 93–100
[2022-04-02] MEDS: 0.9% Normal Saline 1,000 ML 150 ML IV ×4 (01:25→23:50)
[2022-04-02] MEDS: Vancomycin IV 500 MG/100 ML BAG 100 MG IV ×2 (01:26→15:15)
[2022-04-02 03:26] LABS: Absolute Lymphocyte Count 1.23 X10^3/uL (0.83-4.51); Absolute Neutrophil Count 12.6 X10^3/uL (2.0-7.7); Basophil# 0.04 X10^3/uL; Basophil% 0.3 % (0-1); Eosinophil# 0.01 X10^3/uL; Eosinophils% 0.1 % (0-5); Hematocrit 26.8 % (37-47); Lymphocyte # 1.23 X10^3/ul (0.83-4.51); Lymphocyte % 8.6 % (19-41); Mean Corp Hgb Conc 33.6 g/dL (32-36); Mean Corpuscular Volume 89.3 fL (81-99); Mean Platelet Vol. 9.2 fl (6.2-12.0); Monocyte# 0.29 X10^3/uL; NRBC Flagged by Analyzer 0 % (0-5); Neutrophil # 12.58 X10^3/uL (2.7-7.7); Neutrophil % 87.7 % (47-70); Platelet Count 247 K/mm3 (150-450); RBC Distribution Width CV 14.3 % (11.6-14.6); RBC Distribution Width SD 47.1 fl (35.1-43.9); White Blood Count 14.3 K/mm3 (4.4-11.0)
[2022-04-02 03:47] LABS: ALB/GLOB Ratio 0.5 RATIO (0.9-2.4); AST(SGOT) 29 U/L (15-37); Alanine Aminotransfer ALT/SGPT 37 U/L (13-56); Albumin, Serum 2.4 g/dL (3.2-5.0); Alkaline Phosphatase 118 U/L (45-117); Anion Gap 7 (5-15); BUN 20 mg/dL (7-18); BUN/Creat Ratio 26.7 RATIO (10-20); Calcium,Total 8.7 mg/dL (8.5-10.1); Chloride 113 mmol/L (98-107); Creatinine, Serum 0.75 mg/dL (0.55-1.02); EST Glomerular Filtration Rate 89 mL/min (>60); Est Glom Filt Rate - Afr Amer 108 mL/min (>60); Estimated Creatinine Clearance 89.61 ml/min; Globulin 4.4 g/dL (2.2-4.2); Glucose 166 mg/dL (74-106); Potassium 4.6 mmol/L (3.5-5.1); Protein, Total 6.8 g/dL (6.4-8.2); Sodium Level 142 mmol/L (136-145)
[2022-04-02] MEDS: Nystatin Powder 15gm Bottle 1 APPLIC TOPICAL (05:53)
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
--- NOTE | 2022-04-02 07:52 | PN.HOSP_ITS ---
Subjective Subjective Follow-up for sepsis. Patient has traumatic brain injury in the past and PTSD and therefore his speech is chronically incoherent and does not make sense. Cannot have meaningful history. No fever. Objective Data Objective Data Vital Signs: Vital Signs Temp Pulse Resp BP Pulse Ox O2 Del Method O2 Flow Rate 97.3 F L 80 16 117/78 95 Room Air 2 04/02/22 06:00 04/02/22 06:00 04/02/22 06:00 04/02/22 06:00 04/02/22 06:00 04/02/22 06:00 04/01/22 09:16 Oxygen Flow Rate (L/min) 2 Oxygen Delivery Method Room Air Weight: 130 lb 8.218 oz Body Mass Index (BMI) 21.4 Intake & Output: Intake and Output for Last 24 Hours 03/31/22 04/01/22 04/02/22 23:59 23:59 23:59 Intake Total 3250 / 3250 190 / 190 Output Total 1625 / 2075 1175 / 1175 Balance 1625 / 1175 -985 / -985 Lab / Micro Data Result Diagrams: 04/02/22 03:12 04/02/22 03:12 Labs: Laboratory Results - last 24 hr 04/01/22 09:30: WBC Cancelled, Corrected WBC Cancelled, RBC Cancelled, Hgb Cancelled, Hct Cancelled, MCV Cancelled, MCH Cancelled, MCHC Cancelled, RDW Std Deviation Cancelled, RDW Coeff of Renetta Cancelled, Plt Count Cancelled, MPV Cancelled, Immature Gran % (Auto) Cancelled, Neut % (Auto) Cancelled, Lymph % (Auto) Cancelled, [place] % (Auto) Cancelled, Eos % (Auto) Cancelled, Baso % (Auto) Cancelled, Absolute Neuts (auto) Cancelled, Absolute Lymphs (auto) Cancelled, Total Counted Cancelled, Neutrophils % (Manual) Cancelled, Band Neutrophils % Cancelled, Lymphocytes % (Manual) Cancelled, Monocytes % (Manual) Cancelled, Eosinophils % (Manual) Cancelled, Basophils % (Manual) Cancelled, Metamyelocytes % Cancelled, Myelocytes % Cancelled, Promyelocytes % Cancelled, Blast Cells % Cancelled, Plasma Cell % (Manual) Cancelled, Other Cells % Cancelled, Nucleated RBC % Cancelled, Nucleated RBCs/100 WBC Cancelled, Differential Comment Cancelled, Diff Path Review Cancelled, Hypersegmented Neuts Cancelled, Atypical Lymphocytes Cancelled, Reactive Lymphocytes Cancelled, Smudge Cells Cancelled, Toxic Granulation Cancelled, Toxic Vacuolation Cancelled, Dohle Bodies Cancelled, Conrad Rods Cancelled, Platelet Estimate Cancelled, Plt Morphology Comment Cancelled, RBC Morphology Cancelled, Polychromasia Cancelled, Hypochroma michael Cancelled, Poikilocytosis Cancelled, Basophilic Stippling Cancelled, Anisocytosis Cancelled, Microcytosis Cancelled, Macrocytosis Cancelled, Spherocytes Cancelled, Sickle Cells Cancelled, Target Cells Cancelled, Tear Drop Cells Cancelled, Ovalocytes Cancelled, Stomatocytes Cancelled, [place] Bodies Cancelled, Nelly Cells Cancelled, Bite Cells Cancelled, Crenated Cell Cancelled, Acanthocytes (Spur) Cancelled, Rouleaux Cancelled, Schistocytes Cancelled 04/01/22 09:30: Sodium 137, Potassium 4.0, Chloride 107, Carbon Dioxide 23.0, Anion Gap 7, BUN 33 H, Creatinine 1.35 H, Estim Creat Clear Calc 49.78, Est GFR (MDRD) Af Amer 55 L, Est GFR (MDRD) Non-Af 45 L, BUN/Creatinine Ratio 24.4 H, Glucose 107 H, Calcium 9.2, Total Bilirubin 0.30, AST 18, ALT 33, Alkaline Phosphatase 127 H, Troponin I High Sens < 3 L, Total Protein 7.4, Albumin 2.8 L, Globulin 4.6 H, Albumin/Globulin Ratio 0.6 L 04/01/22 09:30: Lactic Acid Cancelled 04/01/22 10:05: PT 13.8, INR 1.1, APTT 33.1, D-Dimer Quant (PE/DVT) 3.72 H* 04/01/22 10:05: Urine Color Yellow, Urine Clarity Turbid, Urine pH 6.0, Ur Specific [place] 1.015, Urine Protein 100 H, Urine Glucose (UA) Normal, Urine Ketones Negative, Urine Occult Blood 250 H, Urine Nitrite Positive H, Urine Bilirubin Negative, Urine Urobilinogen 1 H, Ur Leukocyte Esterase 500 H, Urine RBC 0 SEEN, Urine WBC >100 SEEN, Ur Squamous Epith Cells 0 SEEN, Urine Bacteria 0 SEEN, Urine Mucus 0 SEEN 04/01/22 10:05: WBC 17.3 H, RBC 3.34 L, Hgb 9.8 L, Hct 29.4 L, MCV 88.0, MCH 29.3, MCHC 33.3, RDW Std Deviation 44.5 H, RDW Coeff of Renetta 13.7, Plt Count 271, MPV 9.7, Immature Gran % (Auto) 1.100 H, Neut % (Auto) 86.9 H, Lymph % (Auto) 4.1 L, [place] % (Auto) 7.2, Eos % (Auto) 0.2, Baso % (Auto) 0.5, Absolute Neuts (auto) 15.0 H, Absolute Lymphs (auto) 0.71 L, Nucleated RBC % 0, Differential Comment 04/01/22 10:05: Lactic Acid 2.2 H* 04/01/22 14:30: Lactic Acid Cancelled 04/01/22 17:15: Lactic Acid 1.2 04/02/22 03:12: WBC 14.3 H, RBC 3.00 L, Hgb 9.0 L, Hct 26.8 L, MCV 89.3, MCH 30.0, MCHC 33.6, RDW Std Deviation 47.1 H, RDW Coeff of Renetta 14.3, Plt Count 247, MPV 9.2, Immature Gran % (Auto) 1.300 H, Neut % (Auto) 87.7 H, Lymph % (Auto) 8.6 L, [place] % (Auto) 2.0, Eos % (Auto) 0.1, Baso % (Auto) 0.3, Absolute Neuts (auto) 12.6 H, Absolute Lymphs (auto) 1.23, Nucleated RBC % 0 04/02/22 03:12: Sodium 142, Potassium 4.6, Chloride 113 H, Carbon Dioxide 22.0, Anion Gap 7, BUN 20 H, Creatinine 0.75, Estim Creat Clear Calc 89.61, Est GFR (MDRD) Af Amer 108, Est GFR (MDRD) Non-Af 89, BUN/Creatinine Ratio 26.7 H, Glucose 166 H, Calcium 8.7, Total Bilirubin 0.50, AST 29, ALT 37, Alkaline Phosphatase 118 H, Total Protein 6.8, Albumin 2.4 L, Globulin 4.4 H, Albumin/Globulin Ratio 0.5 L Micro: Microbiology 04/01/22 10:05 Urine Catheter - Banks Legionella Antigen - Final 04/01/22 10:05 Urine Catheter - Banks Streptococcus pneumoniae Antigen (M - Final Radiography Diagnostic Testing: Radiology Impression Chest X-Ray 04/01/22 10:15 IMPRESSION: 1. Mild to moderate patchy pneumonic consolidation is present in the right lower lobe. Additional patchy infiltrates are also present in the right upper lobe. There is chronic interstitial scarring and pleural thickening throughout the right lung associated with multiple old right-sided rib fractures. Electronically Signed: Clarence Lee MD at 10:52 EST , Chest CTA 04/01/22 10:59 IMPRESSION: 1. Mild to moderate patchy consolidation is present in the right lower lobe and associated with subsegmental atelectasis and some dense soft tissue, consistent with aspirated contents. 2. Mild patchy pneumonic infiltrates of the right upper and middle lobes 3. Subsegmental atelectasis and a small patchy infiltrate is also present in the medial aspect of the left lower lobe. 4. Trace bilateral pleural effusions are present. 5. No demonstrated pulmonary embolism or arterial dissection. Electronically Signed: Clarence Lee MD at 12:52 EST , Physical Exam Narrative Physical exam General: Awake, cannot assess orientation. Incoherent speech, HEENT: Atraumatic, PERRLA, EOMI, Normocephalic Oral: Oral mucosa dry. No Gingival or Mucosal Lesions/ Ulcerations Neck: Scar of tracheostomy. Supple, No JVD, Negative Carotid Bruits Lungs: Air entry diminished in bilateral lung bases. No crepitation/rhonchi Cardiovascular: Regular rate, Regular Rhythm, Normal S1, Normal S2, No murmurs Abdomen: Gastric tube. Bowel Sounds Present, Soft, Non Tender, Non-Distended : No renal angle tenderness. No suprapubic tenderness. Extremities: No edema, Capillary Refill Less than 3 Seconds Skin: No rashes, No breakdown Musculoskeletal: RLE flexed at knee and hip joints. Chronic right-sided deficit. ROM restricted Neurological: Does not follow command. Complete neuro exam unobtainable Psych/Mental Status: Restless, PTSD, TBI Assessment & Plan Assessment/Plan (1) Sepsis: PLAN: Sepsis possible due to UTI and/or pneumonia. The patient presented with sepsis due to probable UTI and/or aspiration p neumonia with acute sepsis-related organ dysfunction as evidenced by lactic acidemia. Patient had qSOFA score 2 with change in mental status and SBP less than 100. Patient had volume resuscitation as per sepsis protocol and started on broad- spectrum antibiotic vancomycin and Zosyn. Patient was admitted in ICU given high risk of decompensated septic shock but patient improved and is being transferred to PCU. Suspected, possible due to gram-negative organism. Urinary antigens are negative for Legionella and Streptococcus. Blood cultures are pending. Urine culture pending (2) MIGEL (acute kidney injury): PLAN: Likely prerenal IVF Monitor (3) COVID-19: PLAN: Dx on the and was started on Paxlovid Start dexamethasone (was started on prednisone as outpt) On room air. Quaratine for 10 days (through 04/08) (4) TBI (traumatic brain injury): PLAN: Complicates care and recovery. PT OT ST (5) Severe protein-calorie malnutrition: PLAN: Complicates care and recovery NPO until seen by [facility] MORE for now Nutrition consult PLAN: Plan VTE prophylaxis: SQ LMWH Code status: per mother--full code. Charges/Coding Visit Charges Inpatient E&M: 65483 Subs Hosp L3
[2022-04-02] MEDS: Enoxaparin 40 MG/0.4 ML Syringe SC (08:25)
[2022-04-02] MEDS: Famotidine 20 MG Tablet GT (08:26)
[2022-04-02] MEDS: dexAMETHasone 10 MG/ML Vial 6 MG IV (08:27)
[2022-04-02] MEDS: Metoprolol Tartrate 50 MG Tablet GT (08:27)
--- NOTE | 2022-04-02 09:14 | CASEMGMT ---
Addendum entered by Sharee Barahona 04/02/22 09:45: Social Work SW spoke w/pt's mother, confirmed plan will be for pt to return to [facility] at discharge. [facility] facility list declined. SW sent updates via [facility] and via fax as [facility] does not have a consistent admissions person, and those helping do not all have access to [facility]. SW will continue to follow for pt's return to [facility] when ready. DONITA Steele Original Note: Social Work SW reviewed chart, pt is here from [facility], went from [facility] to [facility] in January, intermediate level of care. SW called [facility], confirmed pt is a retirement pt. SW called pt's mother, message left. SW will continue to follow. DONITA Steele
--- NOTE | 2022-04-02 11:46 | PCM.RX.CS ---
Consult Pharmacy has been consulted to manage selected antiobiotic: Vancomycin Type of Consult: Follow-up Suspected Infection: Pneumonia Prior Doses of Antibiotics Received/Current Regimen: Loading dose given in ER 1000mg on 04/01/22 @ 1250 500mg 04/02/22 @ 0126 Labs: Sodium 142 mmol/L (136-145) 04/02/22 03:12 Potassium 4.6 mmol/L (3.5-5.1) 04/02/22 03:12 Chloride 113 mmol/L (98-107) H 04/02/22 03:12 Carbon Dioxide 22.0 mmol/L (21.0-32.0) 04/02/22 03:12 Anion Gap 7 (5-15) 04/02/22 03:12 BUN 20 mg/dL (7-18) H 04/02/22 03:12 Creatinine 0.75 mg/dL (0.55-1.02) 04/02/22 03:12 Est GFR (MDRD) Af Amer 108 mL/min (>60) 04/02/22 03:12 Est GFR (MDRD) Non-Af 89 mL/min (>60) 04/02/22 03:12 BUN/Creatinine Ratio 26.7 RATIO (10-20) H 04/02/22 03:12 Glucose 166 mg/dL (74-106) H 04/02/22 03:12 Microbiology: Microbiology 04/01/22 10:05 Urine, Clean Catch Urine Culture - Preliminary Gram negative zabrina 04/01/22 10:05 Urine Catheter - Banks Legionella Antigen - Final 04/01/22 10:05 Urine Catheter - Banks Streptococcus pneumoniae Antigen (M - Final Weight used for dosin.3 kg Estimated Creatinine Clearance: 50 Goal Trough: 15-20 mcg/mL Pharmacy Plan for Drug Dosing: Pharmacy Service will continue to monitor and adjust dosing as required. patient with receive 500mg every 12 hours until trough @ 0030 on 04/03/22. Follow-Up Labs: Trough Vancomycin Labs to be done on [date and time ordered]: 04/03/22 @ 0030
[2022-04-02] MEDS: AMANTADINE HCL 50 MG/5ML 100 MG GT (15:17)
[2022-04-02] MEDS: Chlorhexidine 15 ML PO (15:18)
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
--- NOTE | 2022-04-02 18:15 | NURSING ---
report called to med-surg for transfer to room 308, parents present
[2022-04-02] MEDS: clonazePAM 0.5 MG Tablet GT ×2 (19:05→19:37)
[2022-04-02 19:48] LABS: M R Staph aureus DNA By PCR Negative (Negative); Probe Check PASS; Specimen Processing Control PASS
[2022-04-03] VITALS (10 sets, daily range): BP systolic 115–138; BP diastolic 73–78; PULSE 51–70; RESP 16–18; TEMP 36.6–37.1; O2SAT 94–98
[2022-04-03] MEDS: Metoprolol Tartrate 50 MG Tablet GT (00:03)
[2022-04-03] MEDS: Famotidine 20 MG Tablet GT ×3 (00:03→21:58)
--- NOTE | 2022-04-03 00:03 | NURSING ---
Pt had No residual in peg tube. Peg tube flushed with 50ml. No complaints of pain from patient.
[2022-04-03] MEDS: AMANTADINE HCL 50 MG/5ML 100 MG GT ×3 (00:17→21:58)
[2022-04-03] MEDS: Nystatin Powder 15gm Bottle 1 APPLIC TOPICAL ×3 (00:18→21:59)
[2022-04-03 01:07] LABS: Vancomycin, Trough Level 6.9 ug/mL (5.0-15.0)
--- NOTE | 2022-04-03 01:26 | PCM.RX.CS ---
Consult Pharmacy has been consulted to manage selected antiobiotic: Vancomycin Type of Consult: Follow-up Suspected Infection: Sepsis Prior Doses of Antibiotics Received/Current Regimen: Medications Vancomycin HCl 1,250 mg/ (Sodium Chloride) 275 mls @ 167 mls/hr IV Q12H CHRISTY Discontinued Medications Vancomycin HCl () 500 mg in 100 mls @ 100 mls/hr IV Q12H CHRISTY Last Admin: 04/02/22 16:45 Dose: Infused Labs: Sodium 142 mmol/L (136-145) 04/02/22 03:12 Potassium 4.6 mmol/L (3.5-5.1) 04/02/22 03:12 Chloride 113 mmol/L (98-107) H 04/02/22 03:12 Carbon Dioxide 22.0 mmol/L (21.0-32.0) 04/02/22 03:12 Anion Gap 7 (5-15) 04/02/22 03:12 BUN 20 mg/dL (7-18) H 04/02/22 03:12 Creatinine 0.75 mg/dL (0.55-1.02) 04/02/22 03:12 Est GFR (MDRD) Af Amer 108 mL/min (>60) 04/02/22 03:12 Est GFR (MDRD) Non-Af 89 mL/min (>60) 04/02/22 03:12 BUN/Creatinine Ratio 26.7 RATIO (10-20) H 04/02/22 03:12 Glucose 166 mg/dL (74-106) H 04/02/22 03:12 Vancomycin Trough 6.9 ug/mL (5.0-15.0) 04/03/22 00:34 Microbiology: Microbiology 04/01/22 10:05 Urine Catheter - Banks Legionella Antigen - Final 04/01/22 10:05 Urine Catheter - Banks Streptococcus pneumoniae Antigen (M - Final 04/01/22 10:05 Urine, Clean Catch Urine Culture - Preliminary Gram negative zabrina Weight used for dosin.2 kg Estimated Creatinine Clearance: 90 Goal Trough: 15-20 mcg/mL Pharmacy Plan for Drug Dosing: Vancomycin trough level of 6.9 was below the target range of 15-20. And this was drawn just 9.3hrs post-dose. Owing to the improvement in renal function (SCr from 1.35 to 0.75). Will increase dose to 1250mg q12h, and draw another trough prior to fourth dose of new regimen. Pharmacy Service will continue to monitor and adjust dosing as required. Follow-Up Labs: Trough Vancomycin Labs to be done on [date and time ordered]: 04/04/22 @[id number]
[2022-04-03] MEDS: 0.9% Normal Saline 1,000 ML 150 ML IV (06:31)
[2022-04-03] MEDS: clonazePAM 0.5 MG Tablet GT (06:49)
--- NOTE | 2022-04-03 06:49 | NURSING ---
Pt had No residual in peg tube. Peg tube flushed with 50ml. No complaints of pain from patient.
[2022-04-03] MEDS: Enoxaparin 40 MG/0.4 ML Syringe SC (09:31)
--- NOTE | 2022-04-03 10:06 | CASEMGMT ---
Addendum entered by Violet Fang 04/03/22 13:05: Ivania from [facility] called. Ivania called and informed she now has [facility]. Ivania requested SW send therapy notes and a current med list. They were not included in information sent previously as they had not been finished. This SW sent these documents via [employer]. Original Note: Social Work SW called [facility] to follow up on fax sent by JAYDON Tolliver yesterday. JAYDON spoke to Ivania, who confirmed a new precert would be needed. JAYDON informed Ivania that a fax of clinical updates had been sent yesterday. Ivania to check on this info and if fax cannot be found will call this SW back. This SW refaxed information to [facility], just to be sure. Plan: Return to [facility], pending precert BETH Oliveira
[2022-04-03] MEDS: dexAMETHasone 10 MG/ML Vial 6 MG IV (11:19)
[2022-04-03] MEDS: 0.9% Saline Lock 10 ML Syringe IV (11:30)
--- NOTE | 2022-04-03 12:05 | PCM.PN.HOSP ---
Subjective Subjective Follow-up for sepsis due to aspiration pneumonia and UTI No fever. Objective Data Objective Data Vital Signs: Vital Signs Temp Pulse Resp BP Pulse Ox O2 Del Method O2 Flow Rate 97.8 F 56 L 18 138/77 H 97 Room Air 2 04/03/22 10:00 04/03/22 10:01 04/03/22 10:00 04/03/22 10:00 04/03/22 10:00 04/03/22 10:00 04/01/22 09:16 Oxygen Flow Rate (L/min) 2 Oxygen Delivery Method Room Air Weight: 131 lb 2.801 oz Body Mass Index (BMI) 21.4 Intake & Output: Intake and Output for Last 24 Hours 04/01/22 04/02/22 04/03/22 23:59 23:59 23:59 Intake Total 3250 / 3250 3800 / 3800 1425 / 1425 Output Total 1625 / 2075 2250 / 2250 400 / 400 Balance 1625 / 1175 1550 / 1550 1025 / 1025 Medical Nutrition Assessment Dietitian: Malnutrition Criteria Met Start: 04/02/22 10:34 Freq: Status: Active Protocol: Document 04/02/22 10:35 RMA (Rec: 04/02/22 10:35 RMA [id number]) Nutrition Malnutrition Evidence of Malnutrition Exists Yes Malnutrition (severe): Acute Illness/Injury Evidenced By Suboptimal Energy Intake ( Severe),Weight Loss (Severe) Intake Problem Inadequate Oral Intake Etiology related to swallowing difficulty/possible aspiration Signs/Symptoms as evidenced by NPO Status Active Problem Clinical Problem Acute Disease or Injury Related Malnutrition Etiology Severe protein-calorie malnutrition in the context of trauma as evidenced by dysphagia and inadequate oral intake Signs/Symptoms as evidenced by ~24% wt loss x 6 months, need for enteral nutrition support via PEG, PO meeting less than 50% estimated nutrition needs Status Active Problem Recommendation Dietitian Recommendations/Changes Recommend Regular diet if deemed safe for PO by GAS PIPE LAYER; consistency/texture per GAS PIPE LAYER. Enteral Nutrition Support via PEG tube if pt to remain NPO or PO not adequate to meet estimated nutrition needs. ONS if appropriate for PO diet to provide increased calories /protein. Lab / Micro Data Result Diagrams: 04/02/22 03:12 04/02/22 03:12 Labs: Laboratory Results - last 24 hr 04/02/22 16:30: MRSA (PCR) Negative 04/03/22 00:34: Vancomycin Trough 6.9 Micro: Microbiology 04/01/22 10:05 Blood Culture (Wb) - Anticubital Right Blood Culture - Preliminary No growth in 48 hours. 04/01/22 09:30 Blood Culture (Wb) - Anticubital Left Blood Culture - Preliminary No growth in 48 hours. 04/01/22 10:05 Urine, Clean Catch Urine Culture - Final Hafnia alvei 04/01/22 10:05 Urine Catheter - Banks Legionella Antigen - Final 04/01/22 10:05 Urine Catheter - Banks Streptococcus pneumoniae Antigen (M - Final Physical Exam Narrative Physical exam General: Awake, cannot assess orientation. Incoherent speech, incomprehensible. HEENT: Atraumatic, PERRLA, EOMI, Normocephalic Oral: Oral mucosa dry. No Gingival or Mucosal Lesions/ Ulcerations Neck: Scar of tracheostomy. Supple, No JVD, Negative Carotid Bruits Lungs: Air entry diminished in bilateral lung bases. No crepitation/rhonchi Cardiovascular: Regular rate, Regular Rhythm, Normal S1, Normal S2, No murmurs Abdomen: Gastric tube. Bowel Sounds Present, Soft, Non Tender, Non-Distended : No renal angle tenderness. No suprapubic tenderness. Extremities: No edema, Capillary Refill Less than 3 Seconds Skin: No rashes, No breakdown Musculoskeletal: RLE flexed at knee and hip joints. Chronic right-sided deficit. ROM restricted Neurological: Does not follow command. Complete neuro exam unobtainable Psych/Mental Status: Restless, PTSD, TBI Assessment & Plan Assessment/Plan (1) Sepsis: PLAN: Sepsis possible due to UTI and/or pneumonia. The patient presented with sepsis due to probable UTI and/or aspiration pneumonia with acute sepsis-related organ dysfunction as evidenced by lactic acidemia. Patient had qSOFA score 2 with change in mental status and SBP less than 100. Patient had volume resuscitation as per sepsis protocol and started on broad-spectrum antibiotic vancomycin and Zosyn. Patient was admitted in ICU given high risk of decompensated septic shock but patient improved and is being transferred to PCU. Suspected, possible due to gram-negative organism. Urinary antigens are negative for Legionella and Streptococcus. Blood cultures are pending. 04/03: Urine culture shows Hafnia. Blood culture negative for more than 48 hours. (2) MIGEL (acute kidney injury): PLAN: Likely prerenal 04/03: MIGEL is resolved. Discontinue IV fluid (3) COVID-19: PLAN: Dx on the and was started on Paxlovid Start dexamethasone (was started on prednisone as outpt) On room air. Quaratine for 10 days (through 04/08) (4) TBI (traumatic brain injury): PLAN: Complicates care and recovery. PT OT ST (5) Severe protein-calorie malnutrition: PLAN: Complicates care and recovery NPO until seen by ST Hold TF for now Nutrition consult PLAN: Plan VTE prophylaxis: SQ LMWH Code status: per mother--full code. Charges/Coding Visit Charges Inpatient E&M: 62811 Subs Hosp L2
[2022-04-03] MEDS: Acetaminophen 325 MG Tablet 650 MG PO (18:12)
[2022-04-03] MEDS: clonazePAM 0.5 MG Tablet 1 MG GT (18:14)
[2022-04-04] VITALS (9 sets, daily range): BP systolic 111–134; BP diastolic 67–91; PULSE 54–74; RESP 16–18; TEMP 36.8–37.1; O2SAT 96–98
[2022-04-04] MEDS: Acetaminophen 325 MG Tablet 650 MG PO (06:47)
[2022-04-04] MEDS: clonazePAM 0.5 MG Tablet GT (06:47)
[2022-04-04] MEDS: Nystatin Powder 15gm Bottle 1 APPLIC TOPICAL ×2 (06:55→23:23)
[2022-04-04 07:40] LABS: Hemoglobin 9.9 g/dL (12.0-15.0); Mean Corp Hgb Conc 34.1 g/dL (32-36); Mean Corpuscular Hgb 29.7 pg (27.0-32.0); Mean Corpuscular Volume 87.1 fL (81-99); Mean Platelet Vol. 9.4 fl (6.2-12.0); POSITIVE COUNT YES; POSITIVE MORPHOLOGY YES; Platelet Count 333 K/mm3 (150-450); RBC Distribution Width CV 14.2 % (11.6-14.6); RBC Distribution Width SD 45.3 fl (35.1-43.9); Red Blood Count 3.33 M/mm3 (4.2-5.4)
[2022-04-04 07:50] LABS: Anion Gap 9 (5-15); BUN 14 mg/dL (7-18); BUN/Creat Ratio 21.5 RATIO (10-20); Calcium,Total 8.8 mg/dL (8.5-10.1); Chloride 109 mmol/L (98-107); Creatinine, Serum 0.65 mg/dL (0.55-1.02); EST Glomerular Filtration Rate 105 mL/min (>60); Est Glom Filt Rate - Afr Amer 127 mL/min (>60); Estimated Creatinine Clearance 103.39 ml/min; Glucose 121 mg/dL (74-106); Potassium 3.1 mmol/L (3.5-5.1); Sodium Level 140 mmol/L (136-145)
[2022-04-04 08:57] LABS: Differential Indicated MANUAL DIFF
[2022-04-04 09:09] LABS: Metamyelocyte 2 % (0-1); Neutrophil-Band 15 % (0-5); Neutrophil-Segmented 55 % (47-70); Total Cells Counted 100 (MANUAL DIFF)
[2022-04-04 09:10] LABS: Lymphocyte 18 % (19-41); Monocyte 6 % (0-10); Myelocyte 3 % (0-0); Promyelocyte 1 % (0-0)
[2022-04-04 09:11] LABS: Absolute Neutrophil Count 9.8 X10^3/uL (2.0-7.7)
[2022-04-04 09:13] LABS: Platelet Estimate ADEQUATE (ADEQ)
[2022-04-04 09:14] LABS: Red Cell Morphology NORM C+C NORMAL (NORM C&C)
[2022-04-04] MEDS: Famotidine 20 MG Tablet GT ×2 (10:15→23:22)
[2022-04-04] MEDS: AMANTADINE HCL 50 MG/5ML 100 MG GT ×2 (10:15→23:23)
[2022-04-04] MEDS: Enoxaparin 40 MG/0.4 ML Syringe SC (10:15)
[2022-04-04] MEDS: dexAMETHasone 10 MG/ML Vial 6 MG IV (10:15)
--- NOTE | 2022-04-04 11:53 | PN.HOSP_ITS ---
Subjective Subjective Follow-up for sepsis due to aspiration pneumonia and UTI. Patient also has traumatic brain injury and incomprehensible Objective Data Objective Data Vital Signs: Vital Signs Temp Pulse Resp BP Pulse Ox O2 Del Method O2 Flow Rate 98.4 F 56 L 16 121/67 H 96 Room Air 2 04/04/22 06:30 04/04/22 10:51 04/04/22 06:30 04/04/22 10:51 04/04/22 06:30 04/04/22 06:30 04/01/22 09:16 Oxygen Flow Rate (L/min) 2 Oxygen Delivery Method Room Air Weight: 131 lb 2.801 oz Body Mass Index (BMI) 21.4 Intake & Output: Intake and Output for Last 24 Hours 04/02/22 04/03/22 04/04/22 23:59 23:59 23:59 Intake Total 3800 / 3800 3140 / 3140 325 / 325 Output Total 2250 / 2250 1300 / 2300 2200 / 2200 Balance 1550 / 1550 1840 / 840 -1875 / -1875 Medical Nutrition Assessment Dietitian: Malnutrition Criteria Met Start: 04/02/22 10:34 Freq: Status: Active Protocol: Document 04/02/22 10:35 RMA (Rec: 04/02/22 10:35 RMA [id number]) Nutrition Malnutrition Evidence of Malnutrition Exists Yes Malnutrition (severe): Acute Illness/Injury Evidenced By Suboptimal Energy Intake ( Severe),Weight Loss (Severe) Intake Problem Inadequate Oral Intake Etiology related to swallowing difficulty/possible aspiration Signs/Symptoms as evidenced by NPO Status Active Problem Clinical Problem Acute Disease or Injury Related Malnutrition Etiology Severe protein-calorie malnutrition in the context of trauma as evidenced by dysphagia and inadequate oral intake Signs/Symptoms as evidenced by ~24% wt loss x 6 months, need for enteral nutrition support via PEG, PO meeting less than 50% estimated nutrition needs Status Active Problem Recommendation Dietitian Recommendations/Changes Recommend Regular diet if deemed safe for PO by GANG DRILL OPERATOR; consistency/texture per GANG DRILL OPERATOR. Enteral Nutrition Support via PEG tube if pt to remain NPO or PO not adequate to meet estimated nutrition needs. ONS if appropriate for PO diet to provide increased calories /protein. Lab / Micro Data Result Diagrams: 04/04/22 07:00 04/04/22 07:00 Labs: Laboratory Results - last 24 hr 04/04/22 07:00: WBC 14.0 H, RBC 3.33 L, Hgb 9.9 L, Hct 29.0 L, MCV 87.1, MCH 29.7, MCHC 34.1, RDW Std Deviation 45.3 H, RDW Coeff of Renetta 14.2, Plt Count 333, MPV 9.4, Neut % (Auto) Not Reportable, Absolute Neuts (auto) 9.8 H, Absolute Lymphs (auto) 2.50, Total Counted 100, Neutrophils % (Manual) 55, Band Neutrophils % 15 H, Lymphocytes % (Manual) 18 L, Monocytes % (Manual) 6, Metamyelocytes % 2 H, Myelocytes % 3 H, Promyelocytes % 1 H, Diff Path Review July, Platelet Estimate ADEQUATE, RBC Morphology NORM C+C 04/04/22 07:00: Sodium 140, Potassium 3.1 L, Chloride 109 H, Carbon Dioxide 22.0, Anion Gap 9, BUN 14, Creatinine 0.65, Estim Creat Clear Calc 103.39, Est GFR (MDRD) Af Amer 127, Est GFR (MDRD) Non-Af 105, BUN/Creatinine Ratio 21.5 H, Glucose 121 H, Calcium 8.8 Micro: Microbiology 04/01/22 10:05 Blood Culture (Wb) - Anticubital Right Blood Culture - Preliminary No growth in 48 hours. 04/01/22 09:30 Blood Culture (Wb) - Anticubital Left Blood Culture - Preliminary No growth in 48 hours. 04/01/22 10:05 Urine, Clean Catch Urine Culture - Final Hafnia alvei 04/01/22 10:05 Urine Catheter - Banks Legionella Antigen - Final 04/01/22 10:05 Urine Catheter - Banks Streptococcus pneumoniae Antigen (M - Final Physical Exam Narrative Physical exam General: Awake, Incoherent speech, incomprehensible. Patient was crying HEENT: Atraumatic, PERRLA, EOMI, Normocephalic Oral: Oral mucosa dry. No Gingival or Mucosal Lesions/ Ulcerations Neck: Scar of tracheostomy. Supple, No JVD, Negative Carotid Bruits Lungs: Air entry diminished in bilateral lung bases. No crepitation/rhonchi Cardiovascular: Regular rate, Regular Rhythm, Normal S1, Normal S2, No murmurs Abdomen: Gastric tube. bowel Sounds Present, Soft, Non Tender, Non-Distended : No renal angle tenderness. No suprapubic tenderness. Extremities: No edema, Capillary Refill Less than 3 Seconds Skin: Small purulent drainage with surrounding cellulitis around the PEG tube Musculoskeletal: RLE flexed at knee and hip joints. Chronic right-sided deficit. ROM restricted Neurological: Does not follow command. Complete neuro exam unobtainable Psych/Mental Status: Restless, PTSD, TBI Assessment & Plan Assessment/Plan (1) Sepsis: PLAN: Sepsis possible due to UTI due to Hafnia and/or pneumonia. The patient presented with sepsis due to probable UTI and/or aspiration pneumonia with acute sepsis-related organ dysfunction as evidenced by lactic acidemia. Patient had qSOFA score 2 with change in mental status and SBP less than 100. Patient had volume resuscitation as per sepsis protocol and started on broad-spectrum antibiotic vancomycin and Zosyn. Patient was admitted in ICU given high risk of decompensated septic shock but patient improved and is being transferred to PCU. Suspected, possible due to gram-negative organism. Urinary antigens are negative for Legionella and Streptococcus. Blood cultures are pending. 04/03: Urine culture shows Hafnia. Blood culture negative for more than 48 hours. 04/04: Vancomycin and Zosyn discontinued. IV ceftriaxone. There is small purulent discharge around the PEG tube. Betadine cleaning and Bactroban topical ordered. Discussed with the nursing staff (2) MIGEL (acute kidney injury): PLAN: Likely prerenal 04/03: MIGEL is resolved. Discontinue IV fluid 04/04: Mild hypokalemia potassium was replaced (3) COVID-19: PLAN: Dx on the and was started on Paxlovid Start dexamethasone (was started on prednisone as outpt) On room air. Quaratine for 10 days (through 04/08) (4) TBI (traumatic brain injury): PLAN: Complicates care and recovery. PT OT ST (5) Severe protein-calorie malnutrition: PLAN: Complicates care and recovery Tube feed Nutrition consult PLAN: Plan VTE prophylaxis: SQ LMWH Code status: per mother--full code. Charges/Coding Visit Charges Inpatient E&M: 14401 Subs Hosp L2
--- NOTE | 2022-04-04 12:49 | CASEMGMT ---
Social Work SW called [facility] to check on pt precert. Spoke to Ivania, who shared precert still pending. SW inquired about pt being LT there and possibly not needing a precert. Ivania stated pt is LT but facility would like to accept her back under skilled level of care to get higher rate pay. If insurance will not skill pt then pt can return without precert for intermediate level of care. PLAN: [facility], pending precert BETH Oliveira
[2022-04-04] MEDS: Potassium Chloride Oral Soln 20 MEQ/15 ML UDC 40 MEQ GT (13:54)
[2022-04-04] MEDS: Mupirocin Ointment 22gm Tube 1 APPLIC TOPICAL ×2 (13:55→23:24)
[2022-04-04] MEDS: clonazePAM 0.5 MG Tablet 1 MG GT (19:51)
[2022-04-04] MEDS: Metoprolol Tartrate 50 MG Tablet GT (23:22)
[2022-04-05 01:38] VITALS: PULSE 40; O2SAT 98
--- NOTE | 2022-04-05 02:11 | PCM.HOSP.N ---
Hospitalist Note Nursing staff reports frequent required hold on patient BB therapy. Currently HR 30-40s, asymptomatic. From trends has primarily been routinely low normal or bradycardic except for a very short window on 04/01/22. Will decrease patient BB therapy to 25 mg BID.
[2022-04-05 05:00] VITALS: BP 131/74; PULSE 42; RESP 16; TEMP 36.7; O2SAT 96
[2022-04-05] MEDS: clonazePAM 0.5 MG Tablet GT (06:02)
[2022-04-05] MEDS: Mupirocin Ointment 22gm Tube 1 APPLIC TOPICAL (06:04)
[2022-04-05] MEDS: Nystatin Powder 15gm Bottle 1 APPLIC TOPICAL (06:05)
[2022-04-05 06:51] LABS: Hemoglobin 10.1 g/dL (12.0-15.0); Mean Corp Hgb Conc 33.7 g/dL (32-36); Mean Corpuscular Hgb 29.4 pg (27.0-32.0); Mean Corpuscular Volume 87.2 fL (81-99); Mean Platelet Vol. 8.9 fl (6.2-12.0); POSITIVE COUNT YES; POSITIVE MORPHOLOGY YES; Platelet Count 361 K/mm3 (150-450); RBC Distribution Width SD 44.2 fl (35.1-43.9); Red Blood Count 3.44 M/mm3 (4.2-5.4); White Blood Count 13.4 K/mm3 (4.4-11.0)
[2022-04-05 06:52] LABS: Differential Indicated MANUAL DIFF
[2022-04-05 07:06] LABS: Absolute Neutrophil Count 8.8 X10^3/uL (2.0-7.7)
[2022-04-05 07:07] LABS: Absolute Lymphocyte Count 2.68 X10^3/uL (0.83-4.51); Eosinophil 1 % (0-5); Lymphocyte 20 % (19-41); Monocyte 9 % (0-10); Myelocyte 4 % (0-0); Neutrophil-Segmented 66 % (47-70); Total Cells Counted 100 (MANUAL DIFF)
[2022-04-05 07:08] LABS: Platelet Estimate ADEQUATE (ADEQ); Red Cell Morphology NORM C+C NORMAL (NORM C&C)
[2022-04-05 07:09] LABS: Anion Gap 9 (5-15); BUN 15 mg/dL (7-18); BUN/Creat Ratio 24.5 RATIO (10-20); Calcium,Total 8.7 mg/dL (8.5-10.1); Chloride 108 mmol/L (98-107); Creatinine, Serum 0.61 mg/dL (0.55-1.02); EST Glomerular Filtration Rate 113 mL/min (>60); Est Glom Filt Rate - Afr Amer 137 mL/min (>60); Estimated Creatinine Clearance 110.17 ml/min; Glucose 83 mg/dL (74-106); Potassium 3.3 mmol/L (3.5-5.1); Sodium Level 139 mmol/L (136-145)
[2022-04-05 09:46] VITALS: BP 119/83; PULSE 46; RESP 16; TEMP 36.8; O2SAT 95
[2022-04-05] MEDS: Potassium Chloride Oral Soln 20 MEQ/15 ML UDC 40 MEQ GT (09:49)
[2022-04-05] MEDS: Famotidine 20 MG Tablet GT (09:49)
[2022-04-05] MEDS: Enoxaparin 40 MG/0.4 ML Syringe SC (09:50)
[2022-04-05] MEDS: dexAMETHasone 10 MG/ML Vial 6 MG IV (09:50)
[2022-04-05] MEDS: Acetaminophen 325 MG Tablet 650 MG PO (09:50)
[2022-04-05] MEDS: AMANTADINE HCL 50 MG/5ML 100 MG GT (09:50)
[2022-04-05] MEDS: 0.9% Saline Lock 10 ML Syringe IV (09:51)
[2022-04-05 10:07] VITALS: PULSE 46
--- NOTE | 2022-04-05 10:26 | TREXTCAR_ITS ---
Diet Diet Order/Speech Therapy: 04/02/22 14:27 Diet: Regular - General Food consistency:: Soft & Bite Sized Liquid Consistency:: [place]/Mildly Thick Is pt able to select menu?: No Diet Comments: Direct Supervision - Feeding assistance, slow rate Routine Orders/Code Status Suppository Type: Dulcolax 10mg Suppository Frequency: Daily PRN Code Status: Full Code Therapies Weight Bearing: Weight bearing as tolerated Extremity Affected:: Bilateral Lower Physical Therapy: Eval and Treat Occupational Therapy: Eval and Treat Speech Therapy: Eval and Treat Problem/Diagnosis (1) Sepsis: Status: Acute Code(s): A41.9 - Sepsis, unspecified organism Plan: Sepsis possible due to UTI due to Hafnia and/or pneumonia. The patient presented with sepsis due to probable UTI and/or aspiration pneumonia with acute sepsis-related organ dysfunction as evidenced by lactic acidemia. Patient had qSOFA score 2 with change in mental status and SBP less than 100. Patient had volume resuscitation as per sepsis protocol and started on broad- spectrum antibiotic vancomycin and Zosyn. Patient was admitted in ICU given high risk of decompensated septic shock but patient improved and is being transferred to PCU. Suspected, possible due to gram-negative organism. Urinary antigens are negative for Legionella and Streptococcus. Blood cultures are pending. 04/03: Urine culture shows Hafnia. Blood culture negative for more than 48 hours. 04/04: Vancomycin and Zosyn discontinued. IV ceftriaxone. There is small purulent discharge around the PEG tube. Betadine cleaning and Bactroban topical ordered. Discussed with the nursing staff (2) MIGEL (acute kidney injury): Status: Acute Code(s): N17.9 - Acute kidney failure, unspecified Plan: Likely prerenal 04/03: MIGEL is resolved. Discontinue IV fluid 04/04: Mild hypokalemia potassium was replaced (3) COVID-19: Status: Acute Code(s): U07.1 - COVID-19 Plan: Dx on the and was started on Paxlovid Start dexamethasone (was started on prednisone as outpt) On room air. Quaratine for 10 days (through 04/08) (4) TBI (traumatic brain injury): Status: Acute Code(s): S06.9XAA - Unspecified intracranial injury with loss of consciousness status unknown, initial encounter Plan: Complicates care and recovery. PT OT ST (5) Severe protein-calorie malnutrition: Status: Acute Code(s): E43 - Unspecified severe protein-calorie malnutrition Plan: Complicates care and recovery Tube feed Nutrition consult Plan VTE prophylaxis: SQ LMWH Code status: per mother--full code. Allergies/Procedures Done in Hospital Allergies No Known Allergies Allergy (Verified 09/30/17 14:18) Type of Care/Length of Stay Estimated LOS: Convalescent Care Less Than 30 days Type of Care Needed: Skilled Rehab Potential: Good Prognosis: Good Additional Orders/Day of Discharge Day of Discharge: 04/05/22 Dietary and Speech Recommendations Dietitian Recommendations/Changes: Recommend Regular diet if deemed safe for PO by PLATFORM MAN; consistency/texture per PLATFORM MAN. Enteral Nutrition Support via PEG tube if pt to remain NPO or PO not adequate to meet estimated nutrition needs. ONS if appropriate for PO diet to provide increased calories/protein. Discharge Plan Admission Admit Date/Time: 04/01/22 13:17 Primary Reason for Your Visit: Sepsis due to UTI/pneumonia Attending Provider: Blu Delgado Primary Care Provider: Care Physician,No Primary Consulting Providers: Joseph Coley ; Louis Arenas ; Stanton Acosta ; Bhargav Sharp ; Dmitry Gann ; Rima Stubbs CORPORATE AFFAIRS MANAGER Discharge Orders/Prescriptions Prescriptions: New potassium chloride 20 mEq/15 mL Liquid 40 meq G-tube DAILY Qty: 0 0RF Rx Instructions: For 5 days and then follow-up with BMP. mupirocin 2 % Ointment 1 applic topical TID 5 Days Qty: 0 0RF Protocol: *Topical Application Instructions APPLICATION INSTRUCTIONS: around peg tube after cleaning with Betadine Rx Instructions: For 5 days. dexamethasone 6 mg tablet 6 mg PO DAILY Qty: 6 0RF amoxicillin-pot clavulanate [Augmentin] 500-125 mg tablet 1 tab feeding tube BID 5 Days Qty: 10 0RF guaifenesin [Mucinex Fast-Max Chest-Congest] 100 mg/5 mL liquid 200 mg PO Q4H PRN (Reason: cough) 5 Days Qty: 473 0RF Continued clonazepam 0.5 mg Tablet See Rx Instructions .ROUTE .COMPLEX 7 Days Qty: 21 0RF Rx Instructions: 0.5 mg at 0700 and 1 mg at 1900 amlodipine 10 mg Tablet 10 mg G-tube DAILY Qty: 1 0RF chlorhexidine gluconate 0.12 % Mouthwash 15 ml PO BID Qty: 1 0RF diphenoxylate-atropine 2.5-0.025 mg Tablet 1 tab G-tube Q12 Qty: 1 0RF famotidine 20 mg Tablet 20 mg G-tube BID Qty: 1 0RF ibuprofen 400 mg Tablet 400 mg PO 0700,1400,2100 Qty: 1 0RF duloxetine 30 mg Capsule,Delayed Release(Dr/Ec) 30 mg PO DAILY Qty: 1 0RF acidophilus-pectin, citrus 25 million cell -100 mg Tablet 1 tab PO TID Qty: 1 0RF metoprolol tartrate 50 mg Tablet 50 mg G-tube BID Qty: 1 0RF nystatin [Nyamyc] 100,000 unit/gram Powder 1 applic topical BID@0600,2200 Qty: 1 0RF Protocol: *Topical Application Instructions APPLICATION INSTRUCTIONS: groin oxycodone 5 mg Tablet 5 mg PO 0700,1200,1700 7 Days Qty: 21 0RF quetiapine 25 mg Tablet 25 mg G-tube 0700,2100 Qty: 1 0RF Daily Fiber (psyllium-aspart) 3 gram Powder In Packet 1 packet G-tube BID Qty: 1 0RF prednisone 20 mg Tablet 40 mg feeding tube DAILY duloxetine 60 mg Capsule,Delayed Release(Dr/Ec) 60 mg PO DAILY amantadine HCl 100 mg capsule 100 mg feeding tube BID acetaminophen 500 mg tablet 1,000 mg PO Q8 Discontinued Paxlovid (EUA) 300 mg (150 mg x 2)-100 mg Tablets,Dose Pack 1 tab PO DAILY Rx Instructions: take TWO 150 mg tablets of nirmatrelvir with ONE 100 mg tablet of ritonavir twice daily for 5 days Referrals / Follow Up: Care Physician,No Primary [Primary Care Provider] - Disposition Disposition (needs filled in before D/C Order can be placed): Custodial Facility
--- NOTE | 2022-04-05 13:01 | CASEMGMT ---
Addendum entered by Ivett Najera 04/05/22 14:49: Social Work Precert has been obtained. Physician updated and pt is ready for discharge today. Discharge orders sent to [facility] via [facility]. Transportation arranged with Physician ambulance for 5:30 pickup via cot. SW placed call to pt mother Jaylin and updated of discharge plan. [employer] [facility] [employer] [facility] [employer] and bedside nurse notified of discharge time. Disposition: [facility], skilled level of care. BETH Arteaga Original Note: Social Work SW received message from [employer] [facility] [employer] that precert has been obtained and pt can return today. Physician updated. Plan: [facility], when medically ready BETH Arteaga
--- NOTE | 2022-04-05 14:44 | DS.PCM_ITS ---
Providers Date of Admission: 04/01/22 Date of Discharge: 04/05/22 Primary Care Physician: Zamzam Primary Care Phys Consultations 04/01/22 14:00 Consult: Graduate Teaching Associate / Pulmonary Medicine Routine Consulting Provider: Pulmonary Medicine dee Ann Reason for Consult: sepsis EMERGENT Consult: No MD Notified: Yes Date Notified: 04/02/22 Time Notified: 07:28 Method of Notification: Verbal Reason For Visit: SEPSIS, PNEUMONIA Diagnosis Discharge Diagnosis (1) Sepsis: Status: Acute Code(s): A41.9 - Sepsis, unspecified organism Plan: This 46-year-old female with history of TBI and PTSD was admitted with fever, 106.9 Fahrenheit as documented in H&P. Patient was put on ice bath and was sent to ED.In ED CT chest was concerning for aspiration pneumonia and work-up showed UTI. Sepsis possible due to UTI due to Hafnia and/or aspiration pneumonia. The patient presented with sepsis due to probable UTI and/or aspiration pneumonia with acute sepsis-related organ dysfunction as evidenced by lactic acidemia. Patient had qSOFA score 2 with change in mental status and SBP less than 100. Patient had volume resuscitation as per sepsis protocol and started on broad- spectrum antibiotic vancomycin and Zosyn. Patient was admitted in ICU given high risk of decompensated septic shock but patient improved and is being transferred to PCU. Suspected, possible due to gram-negative organism. Urinary antigens are negative for Legionella and Streptococcus. Blood cultures are pending. 04/03: Urine culture shows Hafnia. Blood culture negative for more than 48 hours. 04/04: Vancomycin and Zosyn discontinued. IV ceftriaxone. There is small purulent discharge around the PEG tube. Betadine cleaning and Bactroban topical ordered. Discussed with the nursing staff 04/05: Patient is discharged on Augmentin for [address] Ely ointment around the PEG tube. Patient also on metoprolol 50 mg twice daily on home medication was decreased to 25 mg twice daily with holding parameters as patient had bradycardia. Discharge medication reconciliation done. Discharge follow-up instructions completed. Discharge process discussed with the patient and all questions were answered to patient's satisfaction. Total time spent, exact 35 minutes on discharge meds reconciliation, examination, coordination of care with nurses and ancillary staff, review of imaging and blood test and discussion with the patient on follow-up instructions. (2) MIGEL (acute kidney injury): Status: Acute Code(s): N17.9 - Acute kidney failure, unspecified Plan: Likely prerenal 04/03: MIGEL is resolved. Discontinue IV fluid 04/04: Mild hypokalemia potassium was replaced (3) COVID-19: Status: Acute Code(s): U07.1 - COVID-19 Plan: Dx on the and was started on Paxlovid Start dexamethasone (was started on prednisone as outpt). Was held during hospital course. On room air. Quaratine for 10 days (through 04/08) Patient is discharged on dexamethasone. Paxlovid discontinued. (4) TBI (traumatic brain injury): Status: Acute Code(s): S06.9XAA - Unspecified intracranial injury with loss of consciousness status unknown, initial encounter Plan: Complicates care and recovery. PT OT ST (5) Severe protein-calorie malnutrition: Status: Acute Code(s): E43 - Unspecified severe protein-calorie malnutrition Plan: Complicates care and recovery Tube feed Nutrition consult Plan VTE prophylaxis: SQ LMWH Code status: per mother--full code. Medications at Discharge Home Medications acidophilus 25 million cell-pectin, citrus 100 mg tablet 1 tab PO TID #1 TAB 01/24/22 amlodipine 10 mg tablet 10 mg G-tube DAILY #1 TAB 01/24/22 chlorhexidine gluconate 0.12 % mouthwash 15 ml PO BID #1 mL 01/24/22 clonazepam 0.5 mg tablet See Rx Instructions .Route .COMPLEX 7 days #21 tabs 01/24/22 diphenoxylate-atropine 2.5 mg-0.025 mg tablet 1 tab G-tube Q12 #1 TAB 01/24/22 duloxetine 30 mg capsule,delayed release 30 mg PO DAILY #1 cap 01/24/22 famotidine 20 mg tablet 20 mg G-tube BID #1 TAB 01/24/22 nystatin 100,000 unit/gram topical powder (Nyamyc) 1 applic topical BID@0600,2200 #1 g 01/24/22 psyllium husk (aspartame) 3 gram oral powder packet (Daily Fiber (psyllium- aspartame)) 1 packet G-tube BID #1 ea 01/24/22 quetiapine 25 mg tablet 25 mg G-tube 0700,2100 #1 TAB 01/24/22 acetaminophen 500 mg tablet 1,000 mg PO Q8 PAIN 04/01/22 amantadine HCl 100 mg capsule 100 mg feeding tube BID 04/01/22 duloxetine 60 mg capsule,delayed release 60 mg PO DAILY AGITATION 04/01/22 acetaminophen 325 mg tablet (Tylenol) 650 mg PO Q6H PRN PRN Pain 1-10 Or Fever #0 tabs 04/05/22 amoxicillin 500 mg-potassium clavulanate 125 mg tablet (Augmentin) 1 tab feeding tube BID 5 days #10 tabs 04/05/22 dexamethasone 6 mg tablet 6 mg PO DAILY #6 tabs 04/05/22 guaifenesin 100 mg/5 mL oral liquid (Mucinex Fast-Max Chest Congestion) 200 mg (10 mL) PO Q4H PRN cough 5 days #473 mL 04/05/22 metoprolol tartrate 25 mg tablet 25 mg G-tube BID #0 tabs 04/05/22 mupirocin 2 % topical ointment 1 applic topical TID 5 days #0 grams 04/05/22 potassium chloride 20 mEq/15 mL oral liquid 40 meq (30 mL) G-tube DAILY #0 mL 04/05/22 Physical Exam Narrative Seen and examined. Overnight events noticed. Patient heart rate Dropped to 30s to 40s asymptomatic therefore metoprolol dose was decreased to 25 mg twice daily.Currently 46 per blood. General: Awake, on baseline.? Incoherent speech, incomprehensible.? HEENT: Atraumatic, PERRLA, EOMI, Normocephalic Oral: Oral mucosa dry.? No Gingival or Mucosal Lesions/ Ulcerations Neck: Scar of tracheostomy.? Supple, No JVD, Negative Carotid Bruits Lungs:? Air entry diminished in bilateral lung bases.? No crepitation/rhonchi Cardiovascular: Regular rate, Regular Rhythm, Normal S1, Normal S2, No murmurs Abdomen: Gastric tube.? bowel Sounds Present, Soft, Non Tender, Non-Distended : No renal angle tenderness.? No suprapubic tenderness. Extremities: No edema, Capillary Refill Less than 3 Seconds Skin:?Skin around PEG tube looks better. No purulent drainage and erythema improved. Musculoskeletal: RLE flexed at knee and hip joints.? Chronic right-sided deficit.? ROM restricted Neurological: Does not follow command.? Complete neuro exam unobtainable Psych/Mental Status: Restless, PTSD, TBI Medical Records Data Medical Nutrition Assessment Dietitian: Malnutrition Criteria Met Start: 04/02/22 10:34 Freq: Status: Active Protocol: Document 04/02/22 10:35 RMA (Rec: 04/02/22 10:35 RMA [id number]) Nutrition Malnutrition Evidence of Malnutrition Exists Yes Malnutrition (severe): Acute Illness/Injury Evidenced By Suboptimal Energy Intake ( Severe),Weight Loss (Severe) Intake Problem Inadequate Oral Intake Etiology related to swallowing difficulty/possible aspiration Signs/Symptoms as evidenced by NPO Status Active Problem Clinical Problem Acute Disease or Injury Related Malnutrition Etiology Severe protein-calorie malnutrition in the context of trauma as evidenced by dysphagia and inadequate oral intake Signs/Symptoms as evidenced by ~24% wt loss x 6 months, need for enteral nutrition support via PEG, PO meeting less than 50% estimated nutrition needs Status Active Problem Recommendation Dietitian Recommendations/Changes Recommend Regular diet if deemed safe for PO by LIQUIFIED NATURAL GAS TECHNICIAN; consistency/texture per LIQUIFIED NATURAL GAS TECHNICIAN. Enteral Nutrition Support via PEG tube if pt to remain NPO or PO not adequate to meet estimated nutrition needs. ONS if appropriate for PO diet to provide increased calories /protein. Weight / BMI Weight Weight: 126 lb Body Mass Index (BMI) 21.4 ABG / Lab / Microbiology Data Result Diagrams: 04/05/22 06:43 04/05/22 06:43 Laboratory: Laboratory Results - last 24 hr 04/05/22 06:43: WBC 13.4 H, RBC 3.44 L, Hgb 10.1 L, Hct 30.0 L, MCV 87.2, MCH 29.4, MCHC 33.7, RDW Std Deviation 44.2 H, RDW Coeff of Renetta 14.0, Plt Count 361, MPV 8.9, Neut % (Auto) Not Reportable, Absolute Neuts (auto) 8.8 H, Absolute Lymphs (auto) 2.68, Total Counted 100, Neutrophils % (Manual) 66, Lymphocytes % (Manual) 20, Monocytes % (Manual) 9, Eosinophils % (Manual) 1, Myelocytes % 4 H, Diff Path Review May foll, Platelet Estimate ADEQUATE, RBC Morphology NORM C+C 04/05/22 06:43: Sodium 139, Potassium 3.3 L, Chloride 108 H, Carbon Dioxide 22.0, Anion Gap 9, BUN 15, Creatinine 0.61, Estim Creat Clear Calc 110.17, Est GFR (MDRD) Af Amer 137, Est GFR (MDRD) Non-Af 113, BUN/Creatinine Ratio 24.5 H, Glucose 83, Calcium 8.7 Microbiology: Microbiology 04/01/22 10:05 Blood Culture (Wb) - Anticubital Right Blood Culture - Preliminary No growth in 48 hours. 04/01/22 09:30 Blood Culture (Wb) - Anticubital Left Blood Culture - Preliminary No growth in 48 hours. 04/01/22 10:05 Urine, Clean Catch Urine Culture - Final Hafnia alvei 04/01/22 10:05 Urine Catheter - Banks Legionella Antigen - Final 04/01/22 10:05 Urine Catheter - Banks Streptococcus pneumoniae Antigen (M - Final Meaningful Use Info Meaningful Use Diagnoses (Choose all that apply): None applicable Discharge Plan Admission Admit Date/Time: 04/01/22 13:17 Primary Reason for Your Visit: Sepsis due to UTI/pneumonia Attending Provider: Blu Delgado Primary Care Provider: Care Physician,Zamzam Primary Consulting Providers: Joseph Coley ; Louis Arenas ; Stanton Acosta ; Bhargav Sharp ; Dmitry Gann ; Rima Stubbs PRINCIPAL EMBEDDED SOFTWARE ENGINEER Discharge Orders/Prescriptions Prescriptions: New potassium chloride 20 mEq/15 mL Liquid 40 meq G-tube DAILY Qty: 0 0RF Rx Instructions: For 5 days and then follow-up with BMP. mupirocin 2 % Ointment 1 applic topical TID 5 Days Qty: 0 0RF Protocol: *Topical Application Instructions APPLICATION INSTRUCTIONS: around peg tube after cleaning with Betadine Rx Instructions: For 5 days. dexamethasone 6 mg tablet 6 mg PO DAILY Qty: 6 0RF amoxicillin-pot clavulanate [Augmentin] 500-125 mg tablet 1 tab feeding tube BID 5 Days Qty: 10 0RF guaifenesin [Mucinex Fast-Max Chest-Congest] 100 mg/5 mL liquid 200 mg PO Q4H PRN (Reason: cough) 5 Days Qty: 473 0RF acetaminophen [Tylenol] 325 mg Tablet 650 mg PO Q6H PRN PRN (Reason: Pain 1-10 Or Fever) Qty: 0 0RF metoprolol tartrate 25 mg Tablet 25 mg G-tube BID Qty: 0 0RF Rx Instructions: Hold for heart less than 60 or systolic blood pressure less than 100 mmHg. Continued clonazepam 0.5 mg Tablet See Rx Instructions .ROUTE .COMPLEX 7 Days Qty: 21 0RF Rx Instructions: 0.5 mg at 0700 and 1 mg at 1900 amlodipine 10 mg Tablet 10 mg G-tube DAILY Qty: 1 0RF chlorhexidine gluconate 0.12 % Mouthwash 15 ml PO BID Qty: 1 0RF diphenoxylate-atropine 2.5-0.025 mg Tablet 1 tab G-tube Q12 Qty: 1 0RF famotidine 20 mg Tablet 20 mg G-tube BID Qty: 1 0RF duloxetine 30 mg Capsule,Delayed Release(Dr/Ec) 30 mg PO DAILY Qty: 1 0RF acidophilus-pectin, citrus 25 million cell -100 mg Tablet 1 tab PO TID Qty: 1 0RF nystatin [Nyamyc] 100,000 unit/gram Powder 1 applic topical BID@0600,2200 Qty: 1 0RF Protocol: *Topical Application Instructions APPLICATION INSTRUCTIONS: groin quetiapine 25 mg Tablet 25 mg G-tube 0700,2100 Qty: 1 0RF Daily Fiber (psyllium-aspart) 3 gram Powder In Packet 1 packet G-tube BID Qty: 1 0RF duloxetine 60 mg Capsule,Delayed Release(Dr/Ec) 60 mg PO DAILY amantadine HCl 100 mg capsule 100 mg feeding tube BID acetaminophen 500 mg tablet 1,000 mg PO Q8 Discontinued ibuprofen 400 mg Tablet 400 mg PO 0700,1400,2100 Qty: 1 0RF metoprolol tartrate 50 mg Tablet 50 mg G-tube BID Qty: 1 0RF oxycodone 5 mg Tablet 5 mg PO 0700,1200,1700 7 Days Qty: 21 0RF prednisone 20 mg Tablet 40 mg feeding tube DAILY Paxlovid (EUA) 300 mg (150 mg x 2)-100 mg Tablets,Dose Pack 1 tab PO DAILY Rx Instructions: take TWO 150 mg tablets of nirmatrelvir with ONE 100 mg tablet of ritonavir twice daily for 5 days Referrals / Follow Up: Care Physician,No Primary [Primary Care Provider] - Disposition Disposition (needs filled in before D/C Order can be placed): Intermediate Facility Charges/Coding Visit Charges Inpatient E&M: 44507 Disch Hosp >30min
[2022-04-05 15:04] VITALS: BP 103/82; PULSE 58; RESP 18; TEMP 37.2; O2SAT 97
--- NOTE | 2022-04-05 15:47 | CASEMGMT ---
ST yu, treatment note and modified barium swallow study sent to [place] via [facility] at this time.
--- NOTE | 2022-04-05 17:47 | NURSING ---
nurse Heather updated on delay of tack picker time
[2022-04-05] MEDS: clonazePAM 0.5 MG Tablet 1 MG GT (18:22)
--- NOTE | 2022-04-05 18:39 | NURSING ---
face to face report given to ambulance service. pt mother Jaylin at bedside during report as well.
[2022-04-06 09:16] LABS: Pathologist Review Reviewed
[2022-04-06 09:20] LABS: Pathologist Review Reviewed
== END 2022-04-05 18:45 | disposition skilled nursing facility (03) | DRG 137 ==
LOC: ED 10:00 → ICU 13:30 → MS3 04-02 18:33
PROVIDERS: Internal Medicine Critical Care Medicine; Emergency Provider Student in an Organized Health Care Education/Training Program; Visit Provider Internal Medicine
DX: J69.0 Pneumonitis due to inhalation of food and vomit (principal); U07.1 COVID-19; E43 Unspecified severe protein-calorie malnutrition; N17.9 Acute kidney failure, unspecified; E87.20 Acidosis, unspecified; E86.0 Dehydration; Z93.1 Gastrostomy status; F32.A Depression, unspecified; F41.9 Anxiety disorder, unspecified; E87.6 Hypokalemia; R00.1 Bradycardia, unspecified; N39.0 Urinary tract infection, site not specified; F43.10 Post-traumatic stress disorder, unspecified; Z68.21 Body mass index [BMI] 21.0-21.9, adult; Z79.899 Other long term (current) drug therapy; Z87.820 Personal history of traumatic brain injury
CPT/HCPCS: 36415; 51702; 71045; 71275; 74230; 80048; 80053; 80202; 81001; 83605; 84484; 85025; 85379; 85610; 85730; 87040; 87077; 87086; 87088; 87186; 87449; 87641; 92526; 92610; 92611; 93005; 94667; 97162; 97166; 97530; 97533; 97535; 99285; J7030; J7050; Q9967; A4216; J0696

== ENCOUNTER → 2022-06-11 | Outpatient (CLI) | payer MEDICAID, SELFPAY ==
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
== END | disposition home or self-care (01) ==
LOC: RAD 12:49
PROVIDERS: Visit Provider Family Medicine
DX: S06.9XAA Unspecified intracranial injury with loss of consciousness status unknown, initial encounter (principal); R13.10 Dysphagia, unspecified
CPT/HCPCS: 74230; 92611

== ENCOUNTER 2022-08-25 17:38 | Emergency (ER) | payer MEDICAID, SELFPAY ==
[2022-08-25 17:39] VITALS: BP 103/72; PULSE 67; RESP 18; TEMP 35.8; O2SAT 97; BMI 23.1
[2022-08-25 17:41] VITALS: BP 103/72; PULSE 67; RESP 18; TEMP 35.8; O2SAT 97
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
--- NOTE | 2022-08-25 19:00 | RAD_ITS ---
STUDY: X-RAY - ACUTE ABDOMINAL SERIES REASON FOR EXAM: Female, 46 years old. PEG tube accidentally pulled out TECHNIQUE: Single view of the chest. Supine, and erect view(s) of the abdomen were obtained. COMPARISON: Chest CT 04/01/2022 FINDINGS: The lungs are clear and expanded. Normal size heart. Normal mediastinum and mt. Normal visualized pulmonary arteries. Normal visualized aortic arch and descending thoracic aorta. There is a non-specific bowel gas pattern. There is fecal residue of the right more than left colon. The soft tissue structures of the abdomen and pelvis are unremarkable. Stable chronic deformity of the proximal right humerus. Old right rib fractures. RAD/Acute Abdomen Inc Chest IMPRESSION: Nonacute x-ray examination of the chest, abdomen, and pelvis. Electronically Signed: Michele Stewart ([place]), at 19:33 EDT ,
[2022-08-25 19:54] VITALS: BP 105/68; PULSE 68; RESP 18; O2SAT 98
== END 2022-08-25 20:24 | disposition skilled nursing facility (03) ==
PROVIDERS: Emergency Provider Emergency Medicine; Referring Provider Emergency Medicine; Visit Provider Emergency Medicine
DX: K94.23 Gastrostomy malfunction (principal); Z87.891 Personal history of nicotine dependence
CPT/HCPCS: 74022; 99284

== ENCOUNTER → 2023-02-19 | Outpatient (CLI) | payer MEDICAID, SELFPAY ==
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
== END | disposition home or self-care (01) ==
LOC: RAD 12:39
PROVIDERS: Referring Provider Family Medicine; Visit Provider Family Medicine
DX: R13.10 Dysphagia, unspecified (principal)
CPT/HCPCS: 74230; 92611

== ENCOUNTER 2024-03-29 15:55 | Emergency (ER) | payer MEDICARE, MEDICAID, SELFPAY ==
[2024-03-29 15:56] VITALS: BP 136/96; PULSE 90; RESP 18; TEMP 36.2; O2SAT 94
--- NOTE | 2024-03-29 16:20 | CT_ITS ---
STUDY: CT BRAIN WITHOUT CONTRAST REASON FOR EXAM: Female, 48 years old. trauma Individualized dose optimization techniques were used for this CT. TECHNIQUE: Transaxial CT imaging of the brain was performed without administration of intravenous contrast material. COMPARISON: 12.28.21 FINDINGS: There are calcifications around the carotid artery. These are noted in the cavernous carotid arteries. Normal calvarium. Normal soft tissues. Left frontal lobe encephalomalacia. Right frontal bone thad hole. Normal size ventricles and extra-axial spaces for the patient''s age. There are areas of decreased attenuation within the white matter tracts of the supratentorial brain, consistent with microvascular disease changes. Normal basal ganglia and thalami. Normal brainstem. There is mild cerebellar atrophy. There is no intracranial hemorrhage. There are no findings of an acute ischemic infarction. Normal visualized paranasal sinuses. ASPECTS Score for Acute Strokes: 12/18 CT/Brain/Head without Contrast IMPRESSION: There are no acute findings. Chronic involutional changes of the brain. Electronically Signed: Owen Gutierrez MD at 17:25 EST Reading Location ID and State: [facility] / [place] , Service support ,
[2024-03-29] MEDS: Lidocaine/Epi/Tetracaine 50 ML 1 APPLIC TOPICAL (16:35)
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
[2024-03-29] MEDS: Lidocaine 1% /Epi 1:100 (20ml) 20 ML Vial INFILT (17:22)
[2024-03-29 17:56] VITALS: BP 160/110; PULSE 80; O2SAT 98
[2024-03-29 18:59] VITALS: BP 139/94; PULSE 79; RESP 16; TEMP 36.6; O2SAT 98
[2024-03-29 21:00] VITALS: BP 117/85; PULSE 97; RESP 16; O2SAT 98
--- NOTE | 2024-03-29 22:16 | NURSING ---
Report given to Hector, physicians,.
== END 2024-03-29 22:19 | disposition home or self-care (01) ==
PROVIDERS: Emergency Provider Emergency Medicine; Visit Provider Emergency Medicine
DX: S01.81XA Laceration without foreign body of other part of head, initial encounter (principal); W05.0XXA Fall from non-moving wheelchair, initial encounter; Z87.81 Personal history of (healed) traumatic fracture; Z87.820 Personal history of traumatic brain injury
CPT/HCPCS: 12013; 70450; 99285

== ENCOUNTER 2024-06-20 18:58 | Emergency (ER) | payer MEDICARE, MEDICAID, SELFPAY ==
[2024-06-20 18:59] VITALS: BP 166/90; PULSE 98; RESP 19; TEMP 36.7; O2SAT 98; BMI 39.6
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
[2024-06-20 20:58] VITALS: BP 145/89; PULSE 73; O2SAT 98
[2024-06-20] MEDS: Cephalexin 250 MG Capsule 500 MG PO (21:48)
[2024-06-20 21:55] VITALS: BP 149/100; PULSE 73; RESP 18; TEMP 36.7; O2SAT 98
[2024-06-20 21:57] VITALS: BP 149/100; O2SAT 98
--- NOTE | 2024-06-20 22:26 | ED.RN ---
Report called to RN at [facility].
== END 2024-06-20 22:27 | disposition home or self-care (01) ==
PROVIDERS: Emergency Provider Surgery; PCP Family Medicine; Visit Provider Surgery
DX: R60.0 Localized edema (principal); L81.9 Disorder of pigmentation, unspecified; Z87.820 Personal history of traumatic brain injury; Z99.3 Dependence on wheelchair
CPT/HCPCS: 99283

== ENCOUNTER → 2024-07-23 | Outpatient (CLI) | payer MEDICARE, MEDICAID, SELFPAY ==
[2024-07-23 15:12] LABS: Hematocrit 41.7 % (37-47); Hemoglobin 13.7 g/dL (12.0-15.0); Mean Corp Hgb Conc 32.9 g/dL (32-36); Mean Corpuscular Hgb 30.6 pg (27.0-32.0); Mean Corpuscular Volume 93.3 fL (81-99); Mean Platelet Vol. 10.2 fl (6.2-12.0); Platelet Count 262 K/mm3 (150-450); RBC Distribution Width CV 12.7 % (11.6-14.6); RBC Distribution Width SD 43.5 fl (35.1-43.9); Red Blood Count 4.47 M/mm3 (4.2-5.4); White Blood Count 8.5 K/mm3 (4.4-11.0)
[2024-07-23 15:36] LABS: Ammonia 43.2 umol/L (11-51); Valproic Acid (Depakene) Level 43 ug/mL (50-100)
[2024-07-23 15:51] LABS: ALB/GLOB Ratio 1.1 RATIO (0.9-2.4); AST(SGOT) 49 U/L (<=31); Alanine Aminotransfer ALT/SGPT 54 U/L (<=34); Alkaline Phosphatase 110 U/L (35-104); Anion Gap 11 (5-15); BUN 14 mg/dL (4-19); BUN/Creat Ratio 13.7 RATIO (10-20); Calcium,Total 9.5 mg/dL (7.6-11.0); Carbon Dioxide 26.2 mmol/L (21.0-32.0); Chloride 104 mmol/L (98-108); Creatinine, Serum 0.99 mg/dL (0.70-1.20); EST Glomerular Filtration Rate 71 (>60); Globulin 3.8 g/dL (2.2-4.2); Glucose 91 mg/dL (70-99); Magnesium 2.3 mg/dL (1.5-2.2); Potassium 3.9 mmol/L (3.3-5.1); Protein, Total 7.8 g/dL (5.9-8.4); Sodium Level 141 mmol/L (133-145); Total Bilirubin 0.44 mg/dL (0.00-1.30); Vitamin B12 580 pg/mL (180-914)
== END | disposition home or self-care (01) ==
LOC: MTLAB 11:19
PROVIDERS: PCP Family Medicine; Referring Provider Psychiatry & Neurology Neurology; Visit Provider Psychiatry & Neurology Neurology
DX: R45.1 Restlessness and agitation (principal); F02.C18 Dementia in other diseases classified elsewhere, severe, with other behavioral disturbance; S06.9XAS Unspecified intracranial injury with loss of consciousness status unknown, sequela; R32 Unspecified urinary incontinence
CPT/HCPCS: 36415; 80053; 80164; 82140; 82607; 82652; 82747; 83735; 83935; 84300; 84425; 84443; 85014; 85027

== ENCOUNTER → 2024-11-24 | Outpatient (CLI) | payer MEDICARE, MEDICAID, SELFPAY ==
[2024-11-24 18:45] LABS: AST(SGOT) 56 U/L (<=31); Alanine Aminotransfer ALT/SGPT 58 U/L (<=34); Albumin, Serum 4.0 g/dL (3.5-5.0); Alkaline Phosphatase 114 U/L (35-104); Anion Gap 14 (5-15); BUN 17 mg/dL (4-19); BUN/Creat Ratio 15.2 RATIO (10-20); Calcium,Total 9.4 mg/dL (7.6-11.0); Carbon Dioxide 22.4 mmol/L (21.0-32.0); Chloride 102 mmol/L (98-108); Globulin 4.3 g/dL (2.2-4.2); Glucose 102 mg/dL (70-99); Potassium 4.7 mmol/L (3.3-5.1)
[2024-11-29 17:07] LABS: Folate, Hemolysate Test 350.0 ng/mL (Not Estab.); Folate, RBC (Hct) Test 45.5 % (34.0-46.6); Folates, RBC Test 769 ng/mL (>498); VITAMIN B6 4.3 ug/L (3.4-65.2)
== END | disposition home or self-care (01) ==
LOC: MTLAB 13:43
PROVIDERS: PCP Family Medicine; Referring Provider Psychiatry & Neurology Neurology; Visit Provider Psychiatry & Neurology Neurology
DX: S06.9XAS Unspecified intracranial injury with loss of consciousness status unknown, sequela (principal); F02.C18 Dementia in other diseases classified elsewhere, severe, with other behavioral disturbance
CPT/HCPCS: 36415; 80053; 82747; 84207; 85014